=== PATIENT | female | born 1960 | race Caucasian/White ===

== ENCOUNTER → 2021-10-27 11:09 | Outpatient (CLI) | payer MEDICARE, SELFPAY ==
[2021-10-27 14:12] LABS: Potassium 5.4 mmoL/L (3.5-5.1)
== END ==
PROVIDERS: Nurse Practitioner Adult Health
DX: E87.5 Hyperkalemia (principal)
CPT/HCPCS: 36415; 84132

== ENCOUNTER → 2022-05-02 10:40 | Outpatient (CLI) | payer MEDICARE, SELFPAY ==
[2022-05-02 11:35] LABS: Basophils # 0.1 K/mm3 (0-0.2); Eosinophils # 0.1 K/mm3 (0.0-0.4); Eosinophils % 1.2 % (0.1-12.0); Hematocrit 50.1 % (37.0-47.0); Hemoglobin 15.7 g/dL (12.2-16.2); Lymphocytes # 1.8 K/mm3 (0.7-4.5); Lymphocytes % 16.3 % (10-50); Mean Corpuscular HGB Conc 31.3 g/dL (31.8-35.4); Mean Corpuscular Volume 92.5 fl (81-99); Monocytes # 0.9 K/mm3 (0.1-1.0); Monocytes % 8.7 % (1.7-9.3); Neutrophils # 7.9 K/mm3 (1.8-7.8); Neutrophils % 72.8 % (37.0-80.0); Platelet Count 237 K/mm3 (142-424); Red Blood Count 5.41 M/mm3 (4.20-5.40); Red Cell Distribution Width 14.4 % (11.5-17.5); White Blood Count 10.8 K/mm3 (4.8-10.8)
[2022-05-02 11:37] LABS: Chloride 107 mmol/L (98-107)
[2022-05-02 11:38] LABS: Potassium 5.6 mmoL/L (3.5-5.1); Sodium 140 mmol/L (136-145)
[2022-05-02 11:40] LABS: Alanine Aminotransferase 17 U/L (12-78); Albumin Level 4.1 g/dl (3.5-5.0); Albumin/Globulin Ratio 1.5 (1.1-1.8); Alkaline Phosphatase 78 U/L (38-126); Anion Gap 12.6 mEq/L (5-15); Aspartate Amino Transferase 22 U/L (14-36); Bilirubin,Total 0.7 mg/dl (0.2-1.3); Blood Urea Nitrogen 20 mg/dl (7-17); Carbon Dioxide 26 mmol/L (22.0-30.0); Estimated Glomerular Filt Rate 42 ml/min (>60); GFR (African American) 50 ML/MIN (>60); Globulin 2.8 g/dL (1.3-3.2); Total Protein,Serum 6.9 g/dl (6.3-8.2)
[2022-05-02 11:41] LABS: Calcium 9.4 mg/dl (8.4-10.2); Cholesterol 129 mg/dl (140-200); Glucose 127 mg/dl (74-100); HDL Cholesterol 32 mg/dl (40-60); Triglycerides 251 mg/dl (30-150); VLDL Cholesterol 50 mg/dL (0-40)
[2022-05-02 12:20] LABS: Hemoglobin A1C 5.7 % (4.0-6.0)
== END ==
PROVIDERS: PCP Family Medicine; Visit Provider Family Medicine
DX: E11.9 Type 2 diabetes mellitus without complications (principal); E78.5 Hyperlipidemia, unspecified; Z79.84 Long term (current) use of oral hypoglycemic drugs
CPT/HCPCS: 36415; 80053; 80061; 83036; 84443; 85025

== ENCOUNTER → 2022-05-18 14:35 | Outpatient (CLI) | payer MEDICARE, SELFPAY ==
--- NOTE | 2022-05-18 14:35 | CT_ITS ---
FINAL REPORT TECHNIQUE: Axial images were obtained from the lung apex to the mid abdomen by computed tomography. This study was performed with techniques to keep radiation doses as low as reasonably achievable (ALARA). Individualized dose reduction techniques using automated exposure control or adjustment of mA and/or kV according to the patient's size were employed. CLINICAL HISTORY: lung cancer screening, 1 PPD X 44 YEARS FINDINGS: CHEST CT LOW DOSE CTDI vol (mGy): 2.90 DLP (mGy-cm): 103.42 There is severe coronary artery calcification. Left subclavian pacer is identified. There is no axillary adenopathy. There is no hilar or mediastinal adenopathy. The heart is normal in size. There is no pericardial or pleural effusion. Lung window images demonstrate no suspicious infiltrate or nodule. There are multiple bilateral calcified granulomas. Limited images of the upper abdomen are unremarkable. IMPRESSION: Lung RADS category 1 S. Recommend 12 month follow-up low-dose chest CT. Modifier S: Severe coronary artery calcification. Reviewed, Interpreted and Dictated by Sameer White III, MD Transcribed by Merari Montelongo Authenticated and [facility]
== END ==
PROVIDERS: PCP Family Medicine; Visit Provider Family Medicine
DX: Z87.891 Personal history of nicotine dependence; Z12.2 Encounter for screening for malignant neoplasm of respiratory organs
CPT/HCPCS: 71271

== ENCOUNTER → 2022-05-26 11:15 | Outpatient (CLI) | payer MEDICARE, SELFPAY ==
[2022-05-26 11:22] LABS: Microscopic, Urine URINE MICROSCOPIC (MICROSCOPIC)
[2022-05-26 12:13] LABS: Appearance,Urine CLEAR (Clear); Bilirubin,Urine Negative (Negative); Blood, Urine TRACE-I (Negative); Color,Urine YELLOW (Yellow); Glucose,Urine (UA) Negative (Negative); Ketones,Urine Negative (Negative); Leukocyte Esterase,Urine Negative (Negative); Nitrate,Urine Negative (Negative); Protein,Urine 2+ (Negative); Specific Gravity, Urine 1.015 (1.005-1.030); Urobilinogen,Urine 0.2 EU/dl (0.2)
[2022-05-26 12:16] LABS: Alanine Aminotransferase 15 U/L (12-78); Albumin Level 4.1 g/dl (3.5-5.0); Albumin/Globulin Ratio 1.5 (1.1-1.8); Alkaline Phosphatase 76 U/L (38-126); Anion Gap 12.1 mEq/L (5-15); Aspartate Amino Transferase 22 U/L (14-36); Bilirubin,Total 0.4 mg/dl (0.2-1.3); Blood Urea Nitrogen 33 mg/dl (7-17); Calcium 9.2 mg/dl (8.4-10.2); Carbon Dioxide 30 mmol/L (22.0-30.0); Chloride 106 mmol/L (98-107); Chol/HDL Ratio 2.8 (1-3.5); Cholesterol 150 mg/dl (140-200); Estimated Glomerular Filt Rate 38 ml/min (>60); GFR (African American) 46 ML/MIN (>60); Globulin 2.8 g/dL (1.3-3.2); Glucose 114 mg/dl (74-100); HDL Cholesterol 53 mg/dl (40-60); Sodium 142 mmol/L (136-145); Total Protein,Serum 6.9 g/dl (6.3-8.2); Triglycerides 131 mg/dl (30-150); VLDL Cholesterol 26 mg/dL (0-40)
[2022-05-26 12:23] LABS: Potassium 6.1 mmoL/L (3.5-5.1)
[2022-05-26 12:27] LABS: Direct LDL Cholesterol 77.11 mg/dL (100-129)
[2022-05-26 12:37] LABS: Creatinine,Urine Random 53 mg/dL (Not Estab.)
[2022-05-26 13:28] LABS: Microalbumin/Creatinine Ratio 1211.3
== END ==
PROVIDERS: PCP Family Medicine; Visit Provider Family Medicine
DX: E11.9 Type 2 diabetes mellitus without complications (principal); I10 Essential (primary) hypertension; E78.5 Hyperlipidemia, unspecified
CPT/HCPCS: 36415; 80053; 80061; 81001; 82043; 82570

== ENCOUNTER 2022-05-27 10:49 | Observation (INO) | payer MEDICARE, SELFPAY ==
[2022-05-27] VITALS (17 sets, daily range): BP systolic 105–191; BP diastolic 73–124; PULSE 50–59; RESP 12–20; TEMP 36.6–36.8; O2SAT 93–96; BMI 28.1
--- NOTE | 2022-05-27 10:57 | ECG_ITS ---
APPROVED REPORT Exam: Resting ECG HR:50 bpm ECG Measurements Heart Rate 50 AXES WI 163 P 61 QRSd 89 QRS 68 QT 415 T 15 QTc 390 Conclusion SINUS BRADYCARDIA BORDERLINE ECG UNCONFIRMED REPORT Electronically signed by : Brett Childs MD 05/27/2022 14:19:05
--- NOTE | 2022-05-27 11:05 | HMH.EDGENADL ---
Discharge Plan Disposition Patient Disposition: Admitted As Inpatient Condition: Fair Prescriptions Prescriptions: No Action metoprolol tartrate 50 mg tablet 50 mg PO BID Label Comments: TAKE 1 TABLET BY MOUTH TWICE DAILY isosorbide dinitrate 10 mg tablet 10 mg PO TID Label Comments: TAKE 1 TABLET BY MOUTH THREE TIMES DAILY lisinopril 10 mg tablet 10 mg PO DAILY rosuvastatin 20 mg tablet 20 mg PO DAILY Label Comments: TAKE 1 TABLET BY MOUTH DAILY diazepam 5 mg tablet 5 mg PO TID Label Comments: TAKE 1 TABLET BY MOUTH EVERY 8 HOURS NEEDED gabapentin 300 mg capsule 300 mg PO .COMPLEX Rx Instructions: 300 mg orally 1qam, 2pm, 3qhs; clopidogrel 75 mg tablet 75 mg PO DAILY Label Comments: TAKE 1 TABLET BY MOUTH DAILY aspirin 325 mg tablet 325 mg PO DAILY nitroglycerin 0.4 mg tablet, sublingual 0.4 mg sublingual Q5-15M PRN albuterol sulfate 90 mcg/actuation HFA aerosol inhaler 2 inh inhalation Q6H PRN fluticasone furoate-vilanterol [Breo Ellipta] 200-25 mcg/dose blister with device 1 inh inhalation DAILY Label Comments: INHALE 1 PUFF BY MOUTH DAILY omeprazole 40 mg capsule,delayed release(DR/EC) 40 mg PO DAILY Label Comments: TAKE 1 CAPSULE BY MOUTH DAILY trazodone 50 mg tablet 50 mg PO HS Label Comments: TAKE 1 TABLET BY MOUTH AT BEDTIME tramadol 50 mg tablet 100 mg PO Q4-6H PRN lidocaine-prilocaine 2.5-2.5 % cream 2 g topical .COMPLEX PRN Label Comments: APPLY 1 TO 2 GRAMS TOPICALLY TO THE AFFECTED AREA 3 TO 4 TIMES A DAY Rx Instructions: 2 grams topically 3-4 times daily PRN; (DME) nebulizers [facility] See Rx Instructions .Route Qty: 1 0RF Rx Instructions: As directed ipratropium-albuterol 0.5 mg-3 mg(2.5 mg base)/3 mL solution for nebulization 3 ml inhalation QID PRN (Reason: shortness of breath or wheezing) Qty: 180 1RF duloxetine [Cymbalta] 60 mg capsule,delayed release(DR/EC) 60 mg PO DAILY Qty: 30 3RF varenicline [Chantix Starting Month Box] 0.5 mg (11)- 1 mg (42) tablets,dose pack See Rx Instructions PO PER PKG DIR Qty: 53 0RF Rx Instructions: PO PER PKG DIR varenicline 1 mg tablet See Rx Instructions .ROUTE .COMPLEX Qty: 180 0RF Dose Instruction: TAKE 1 TABLET BY MOUTH TWICE DAILY Rx Instructions: TAKE 1 TABLET BY MOUTH TWICE DAILY Referrals Follow up/Referrals: Chantell Ray DO [Primary Care Provider] - See instructions Clinical Impressions Clinical Impression: Myocardial infarction Qualifiers: Myocardial infarction type: non-ST elevation myocardial infarction Qualified Code(s): I21.4 - Non-ST elevation (NSTEMI) myocardial infarction Discharge ED Provider: Savanah Jason General Adult HPI General Chief complaint: Recheck/Abnormal Lab/Rx Stated complaint: Phys ref, high potassium Time Seen by Provider: 05/27/22 11:05 Mode of Arrival: Family Vehicle History of Present Illness HPI narrative: The patient presents to the emergency department referred by her primary care doctor for hyperkalemia. She had blood drawn yesterday. Her potassium was higher than 6. She has renal insufficiency. She also complains of having had chest pain on . It lasted 45 minutes. She has had intermittent shoulder episodes of chest pain since then. She has known artery disease. Related Data Home Medications Medication Instructions Recorded Confirmed albuterol sulfate 90 mcg/actuation 2 inh inhalation Q6H PRN 04/27/22 05/26/22 aerosol inhaler aspirin 325 mg tablet 325 mg PO DAILY 04/27/22 05/26/22 clopidogrel 75 mg tablet 75 mg PO DAILY 04/27/22 05/26/22 diazepam 5 mg tablet 5 mg PO TID 04/27/22 05/26/22 fluticasone furoate 200 1 inh inhalation DAILY 04/27/22 05/26/22 mcg-vilanterol 25 mcg/dose inhalation powder (Breo Ellipta) gabapentin 300 mg capsule 300 mg PO .COMPLEX
[2022-05-27 11:17] LABS: Basophils % 0.3 % (0.1-2.0); Eosinophils # 0.1 K/mm3 (0.0-0.4); Eosinophils % 0.5 % (0.1-12.0); Hematocrit 48.6 % (37.0-47.0); Hemoglobin 15.5 g/dL (12.2-16.2); Lymphocytes # 1.9 K/mm3 (0.7-4.5); Lymphocytes % 14.5 % (10-50); Mean Corpuscular HGB Conc 31.9 g/dL (31.8-35.4); Mean Corpuscular Hemoglobin 29.6 pg (27.0-31.2); Mean Corpuscular Volume 92.7 fl (81-99); Monocytes # 1.1 K/mm3 (0.1-1.0); Monocytes % 8.6 % (1.7-9.3); Neutrophils # 9.7 K/mm3 (1.8-7.8); Platelet Count 224 K/mm3 (142-424); Red Blood Count 5.24 M/mm3 (4.20-5.40); Red Cell Distribution Width 14.5 % (11.5-17.5); White Blood Count 12.8 K/mm3 (4.8-10.8)
[2022-05-27 11:20] LABS: Chloride 106 mmol/L (98-107); Sodium 137 mmol/L (136-145)
[2022-05-27 11:23] LABS: Blood Urea Nitrogen 35 mg/dl (7-17); Calcium 8.7 mg/dl (8.4-10.2); Carbon Dioxide 23 mmol/L (22.0-30.0); Estimated Glomerular Filt Rate 42 ml/min (>60); GFR (African American) 50 ML/MIN (>60); Glucose 152 mg/dl (74-100)
--- NOTE | 2022-05-27 11:39 | PC.NURSE ---
Rounded on patient; call light within reach
[2022-05-27 11:41] LABS: Troponin I 0.36 ng/ml (0.00-0.034)
--- NOTE | 2022-05-27 11:41 | PC.NURSE ---
critical reported to , trop 0.34.
--- NOTE | 2022-05-27 11:46 | PC.NURSE ---
tenter frame operator gianluca White for ER
--- NOTE | 2022-05-27 11:53 | PC.NURSE ---
calling hospitalist about possible admission, had another call said he would call back in 3 minutes approximately
--- NOTE | 2022-05-27 12:02 | PC.NURSE ---
called care management for admission to hospitalist on med surge awaiting call for bed assignment
--- NOTE | 2022-05-27 12:05 | PC.NURSE ---
Dr. Jason at speaking with the patient; family at
[2022-05-27 12:06] LABS: Coronavirus 19, PCR Not Detected (NotDetected); Influenza A, PCR Not Detected (NotDetected); Influenza B, PCR Not Detected (NotDetected)
--- NOTE | 2022-05-27 12:15 | PC.NURSE ---
Cards at bedside.
--- NOTE | 2022-05-27 12:25 | EXP.CARD.CON ---
History of Present Illness History of Present Illness Consult date: 05/27/22 Requesting physician: Savanah Jason Consult reason: chest pain Chief complaint: Chest pain History of present illness: 62-year-old white female with past medical history of coronary artery disease status post stenting, hypertension, HFrEF s/p AICD, V. tach, 1 pack/day smoker greater than 40 years, chronic kidney disease and bilateral carotid artery stenosis presented to emergency department this morning with complaints of intermittent chest pain x1 week. Patient reports over the past week has had episodes of midsternal chest pain radiating to bilateral shoulders and into back associated with shortness of breath, exacerbated with exertion present at rest, this is becoming more frequent. Patient reports on morning had episode that was the worst thus far that was relieved with 2 nitro. Patient reports blood pressure has also been elevated the last week with systolic greater than 160. Patient had routine follow-up with PCP today and mentioned chest pain. Incidentally, patient was also reported to have an elevated potassium by PCP so she was sent to emergency department for hyperkalemia and chest pain. Upon presentation to emergency department EKG shows sinus bradycardia rate of [address] changes. Labs as follow: WBC 12.8, hemoglobin 15.5, sodium 137, potassium 5.0, creatinine 1.30, BUN 35 and troponin elevated at 0.36. Of note blood pressure was also elevated upon presentation to ER with systolic in the 160s. Patient reports previously has seen a estimator in [place] and needs to establish cardiology care here since moving to [place]. Patient will be admitted to hospital with initial presentation of elevated troponin and htn. Patient denies chest pain or shortness of breath at this time. Echo pending [facility] Disclaimer: The information contained in this section may have been updated after the patient was seen, as this information can be updated by other users. Medical History Anxiety Arthritis CAD (coronary artery disease) Carotid stenosis CKD (chronic kidney disease) COPD (chronic obstructive pulmonary disease) CVA (cerebral vascular accident) Depression Diabetes mellitus Diverticulosis GERD (gastroesophageal reflux disease) History of common carotid artery stent placement HTN (hypertension), benign Hyperlipidemia Insomnia Low back pain PVD (peripheral vascular disease) Tobacco abuse Surgical History H/O carotid endarterectomy Right H/O colonoscopy 2020 with Polyp H/O laparoscopy H/O total hysterectomy History of appendectomy History of bladder surgery Fistula repair History of implantable cardioverter-defibrillator (ICD) placement Hx of cardiac cath S/P laparoscopic-assisted sigmoidectomy Family History Father Coronary artery disease Cancer colon Heart attack Mother Coronary artery disease Heart attack Hypertension Stroke Brother Coronary artery disease Heart attack Diabetes Sister Coronary artery disease Diabetes Heart attack Hyperlipidemia Social History Smoking Status: Current every day smoker tobacco type: cigarettes packs per day: 1 years smoked: 40 alcohol intake: never substance use type: denies use current occupational status: disabled Travel in the last 8 weeks: None marital status: Review of Systems Review of Systems Review of systems:: pertinent systems reviewed and negative unless documented below *Cardiovascular Cardiovascular: Reports chest pain at rest, Reports chest pain with activity and Reports dyspnea on exertion *Respiratory Respiratory: Reports dyspnea on exertion Exam Data for Last 24 hours Vital signs
--- NOTE | 2022-05-27 12:26 | PC.NURSE ---
Report provided to ANATOLIY Chávez
--- NOTE | 2022-05-27 12:45 | EXP.HP ---
History of Present Illness *Admission Date: 05/27/22 *Reason for visit:: NSTEMI, abnormal labs, chest pain *History of present illness: Ms. Richards is a 62-year-old female with history of coronary artery disease, previous stenting, hypertension, heart failure with reduced ejection fraction status post AICD, extensive smoking history, COPD, CKD who presented to the ER at the encouragement of her PCP due to chest pain on and some abnormal labs obtained yesterday. Arrival to the ER she stated she had episodes of midsternal pain radiating to her shoulders and back accompanied by shortness of breath brought on by exertion that occurred yesterday morning. Episode lasted about 45 minutes and then self resolved. She has had heart attacks before and felt that this was similar. States that she has had repeat episodes that been very brief and time and self resolved. Had a routine follow-up with her PCP yesterday and mention the pain, labs were obtained. Given her labs came back with elevated potassium per patient report and the onset of chest pain, PCP encourage patient to come to the ER today. On presentation EKG obtained along with labs. She is in sinus bradycardia with nonspecific ST changes. Initial troponin 0.6. Potassium 5. Cardiology and medicine consulted. ER felt patient would benefit from admission. Cardiology saw the patient in the ER, recommended making some medicine changes and addressing symptoms conservatively. Upon arrival to the floor, patient denies any chest pain at this time. Denies any nausea, vomiting, confusion, headache. Reports she follows with cardiology in [place]. [facility] Disclaimer: The information contained in this section may have been updated after the patient was seen, as this information can be updated by other users. Medical History Anxiety Arthritis CAD (coronary artery disease) Carotid stenosis CKD (chronic kidney disease) COPD (chronic obstructive pulmonary disease) CVA (cerebral vascular accident) Depression Diabetes mellitus Diverticulosis GERD (gastroesophageal reflux disease) History of common carotid artery stent placement HTN (hypertension), benign Hyperlipidemia Insomnia Low back pain PVD (peripheral vascular disease) Tobacco abuse Surgical History H/O carotid endarterectomy H/O colonoscopy H/O laparoscopy H/O total hysterectomy History of appendectomy History of bladder surgery History of implantable cardioverter-defibrillator (ICD) placement Hx of cardiac cath S/P laparoscopic-assisted sigmoidectomy Family History Diabetes Brother Sister Coronary artery disease Father Mother Brother Sister Hyperlipidemia Sister Heart attack Father Mother Brother Sister Cancer Father Hypertension Mother Stroke Mother Social History Smoking Status: Current every day smoker tobacco type: cigarettes packs per day: 1 years smoked: 40 alcohol intake: never substance use type: denies use current occupational status: disabled Travel in the last 8 weeks: None marital status: Review of Systems Review of Systems Review of systems (narrative): 14 point review of systems performed, pertinent positives and negatives as per [facility] Meds Home Medications and Allergies Home Medications Medication Instructions Recorded Confirmed Type albuterol sulfate 90 mcg/actuation 2 inh inhalation Q4HP PRN 04/27/22 05/27/22 History aerosol inhaler Shortness Of Breath aspirin 325 mg tablet 325 mg PO DAILY Heart disease 04/27/22 05/27/22 History clopidogrel 75 mg tablet 75 mg PO DAILY platelet inhibitor 04/27/22 05/27/22 History diazepam 5 mg tablet 5 mg PO TIDP PRN Anxiety 04/27/22 05/27/22 History fluticasone furoate 200 1 inh inhalation DAILY COPD 04/27/22 0
--- NOTE | 2022-05-27 13:04 | PC.NURSE ---
PATIENT ARRIVED TO FLOOR BY WHEELCHAIR FROM ED AT 1255
[2022-05-27 14:38] LABS: Troponin I 0.38 ng/ml (0.00-0.034)
[2022-05-27 17:54] LABS: Troponin I 0.31 ng/ml (0.00-0.034)
--- NOTE | 2022-05-27 17:56 | PC.NURSE ---
Dr. Torres notified of critical troponin 0.31
[2022-05-28] VITALS (10 sets, daily range): BP systolic 140–189; BP diastolic 78–95; PULSE 48–57; RESP 17–18; TEMP 36.7–36.8; O2SAT 90–95; BMI 28.3
--- NOTE | 2022-05-28 04:32 | PC.NURSE ---
dinamap bp reading pumped arm up twice to get reading of 170/83. rechecked with manual bp cuff and BP was 154/80. KIMMIE Wood notified and was instructed to have dayshift nurse give 9AM BP meds at 8 AM.
--- NOTE | 2022-05-28 04:49 | PC.NURSE ---
PATIENT HAS RESTED WELL. NO C/O PAIN OR SOA. SINUS ISAI ON TELEMETRY. INDEPENDENT TO THE BR. PLEASANT AND COOPERATIVE.
[2022-05-28 07:25] LABS: Chloride 105 mmol/L (98-107); Potassium 4.7 mmoL/L (3.5-5.1); Sodium 139 mmol/L (136-145)
[2022-05-28 07:26] LABS: Basophils % 0.2 % (0.1-2.0); Eosinophils % 0.4 % (0.1-12.0); Hematocrit 48.8 % (37.0-47.0); Hemoglobin 15.7 g/dL (12.2-16.2); Lymphocytes # 1.9 K/mm3 (0.7-4.5); Lymphocytes % 19.8 % (10-50); Mean Corpuscular HGB Conc 32.2 g/dL (31.8-35.4); Mean Corpuscular Hemoglobin 30.2 pg (27.0-31.2); Mean Corpuscular Volume 93.6 fl (81-99); Mean Platelet Volume 9.1 fl (7.4-10.4); Monocytes # 0.7 K/mm3 (0.1-1.0); Monocytes % 7.1 % (1.7-9.3); Neutrophils # 6.8 K/mm3 (1.8-7.8); Neutrophils % 72.4 % (37.0-80.0); Platelet Count 172 K/mm3 (142-424); Red Blood Count 5.21 M/mm3 (4.20-5.40); Red Cell Distribution Width 14.5 % (11.5-17.5); White Blood Count 9.4 K/mm3 (4.8-10.8)
[2022-05-28 07:27] LABS: Blood Urea Nitrogen 35 mg/dl (7-17); Creatinine Clearance Estimated 49 mL/min (50-200); Estimated Glomerular Filt Rate 42 ml/min (>60); GFR (African American) 50 ML/MIN (>60)
[2022-05-28 07:28] LABS: Alanine Aminotransferase 15 U/L (12-78); Albumin Level 3.9 g/dl (3.5-5.0); Albumin/Globulin Ratio 1.4 (1.1-1.8); Alkaline Phosphatase 68 U/L (38-126); Anion Gap 9.7 mEq/L (5-15); Aspartate Amino Transferase 18 U/L (14-36); Bilirubin,Total 0.4 mg/dl (0.2-1.3); Calcium 8.7 mg/dl (8.4-10.2); Carbon Dioxide 29 mmol/L (22.0-30.0); Cholesterol 129 mg/dl (140-200); Globulin 2.8 g/dL (1.3-3.2); Glucose 119 mg/dl (74-100); Magnesium 1.8 mg/dl (1.6-2.3); Total Protein,Serum 6.7 g/dl (6.3-8.2); Triglycerides 186 mg/dl (30-150); VLDL Cholesterol 37 mg/dL (0-40)
[2022-05-28 07:29] LABS: HDL Cholesterol 43 mg/dl (40-60)
[2022-05-28 07:40] LABS: Direct LDL Cholesterol 56.24 mg/dL (100-129)
--- NOTE | 2022-05-28 07:41 | EXP.ACUTE.PN ---
Subjective *Date: 05/28/22 *Time: 07:41 Interval history: No issues overnight. Patient is feeling better today. No chest pain. Would like to go home Medical Exam Vital signs and Labs for Last 24 Hours: Vital Signs Temp Pulse Pulse Resp BP BP Pulse Ox 05/28/22 06:00 95 05/28/22 04:30 154/80 H 05/28/22 04:18 48 L 05/28/22 04:08 48 L 05/28/22 04:00 98.0 F 50 L 17 170/83 H 90 L 05/28/22 00:17 51 L 05/28/22 00:04 51 L 05/27/22 23:47 98.2 F 59 L 16 136/84 95 05/27/22 20:00 58 L 05/27/22 21:45 58 L 05/27/22 19:48 95 05/27/22 19:25 98.1 F 56 L 17 147/73 H 05/27/22 17:32 56 L 143/81 H 05/27/22 16:00 98.3 F 52 L 18 179/74 H 95 05/27/22 16:00 50 L 05/27/22 13:02 50 L 05/27/22 13:11 98.2 F 51 L 20 157/102 H 93 L 05/27/22 12:49 98 F 54 L 18 191/89 H 05/27/22 12:31 54 L 18 191/89 H 95 05/27/22 12:01 53 L 166/79 H 93 L 05/27/22 11:51 52 L 16 105/83 L 05/27/22 11:36 53 L 105/83 L 95 05/27/22 11:30 52 L 147/124 H 95 05/27/22 10:50 98.1 F 53 L 12 182/98 H 96 05/27/22 11:01 14 189/94 H Intake and Output 05/27/22 05/27/22 05/28/22 15:59 23:59 07:59 Intake Total 120 / 360 240 / 240 Output Total 600 / 600 500 / 500 Balance -480 / -240 -260 / -260 Intake: Intake, Oral Amount 120 / 360 240 / 240 Output: Output, Urine Amount 600 / 600 500 / 500 Other: Number of Unmeasured Voids 1 02 06 Weight 69.853 kg 69.853 kg Patient Weight 05/28/22 23:59 Weight 69.853 kg Laboratory Results - last 24 hr 05/27/22 11:10: Sodium 137, Potassium 5.0, Chloride 106, Carbon Dioxide 23, Anion Gap 13.0, BUN 35 H, Creatinine 1.30 H, Estimated GFR 42 L, Est GFR ( Amer) 50 L, Glucose 152 H D, Calcium 8.7, Troponin I 0.36 H 05/27/22 11:10: WBC 12.8 H, RBC 5.24, Hgb 15.5, Hct 48.6 H, MCV 92.7, MCH 29.6, MCHC 31.9, RDW 14.5, Plt Count 224, MPV 9.0, Neut % (Auto) 76.0, Lymph % (Auto) 14.5, [place] % (Auto) 8.6, Eos % (Auto) 0.5, Baso % (Auto) 0.3, Neut # (Auto) 9.7 H, Lymph # (Auto) 1.9, [place] # (Auto) 1.1 H, Eos # (Auto) 0.1, Baso # (Auto) 0.0 05/27/22 12:03: SARS-CoV-2 (PCR) Not detected, Influenza A Untype (PCR) Not detected, Influenza Type B (PCR) Not detected 05/27/22 14:08: Troponin I 0.38 H 05/27/22 17:15: Troponin I 0.31 H 05/28/22 06:50: WBC 9.4 D, RBC 5.21, Hgb 15.7, Hct 48.8 H, MCV 93.6, MCH 30.2, MCHC 32.2, RDW 14.5, Plt Count 172, MPV 9.1, Neut % (Auto) 72.4, Lymph % (Auto) 19.8, [place] % (Auto) 7.1, Eos % (Auto) 0.4, Baso % (Auto) 0.2, Neut # (Auto) 6.8, Lymph # (Auto) 1.9, [place] # (Auto) 0.7, Eos # (Auto) 0.0, Baso # (Auto) 0.0 05/28/22 06:50: Sodium 139, Potassium 4.7, Chloride 105, Carbon Dioxide 29, Anion Gap 9.7, BUN 35 H, Creatinine 1.30 H, Estimated Creat Clear 49, Estimated GFR 42 L, Est GFR ( Amer) 50 L, Glucose 119 H D, Calcium 8.7, Magnesium 1.8, Total Bilirubin 0.4, AST 18, ALT 15, Alkaline Phosphatase 68, Total Protein 6.7, Albumin 3.9, Globulin 2.8, Albumin/Globulin Ratio 1.4, Triglycerides 186 H, Cholesterol 129 L, VLDL Cholesterol 37, HDL Cholesterol 43, Cholesterol/HDL Ratio 3.0 I & O for Labs for Last 24 Hours: Intake & Output 05/25/22 05/26/22 05/27/22 05/28/22 23:59 23:59 23:59 23:59 Intake Total 120 / 360 240 / 240 Output Total 600 / 600 500 / 500 Balance -480 / -240 -260 / -260 Weight 69.853 kg 69.853 kg Constitutional: Present no acute distress Comment:: Overweight Respiratory: Present CTA bilaterally and normal respiratory effort; Absent accessory muscle use Cardiac: Present Reg Rate and Rhythm GI: Present soft and normal bowel sounds; Absent tenderness Extremities: Present normal inspection and full ROM Skin: Present intact; Absent erythema Neuro: Present Grossly Intact and moves all extremities Assessment and Plan *Assessment and plan (1) Chronic kidney disease: Status: Acute
[2022-05-28 07:54] LABS: Hemoglobin A1C 5.9 % (4.0-6.0)
[2022-05-28 07:55] LABS: Troponin I 0.24 ng/ml (0.00-0.034)
[2022-05-28 07:59] LABS: Thyroid Stimulating Hormone 0.31 uIU/mL (0.465-4.68)
--- NOTE | 2022-05-28 08:55 | EXP.DC.SUM ---
General Admission date:: 05/27/22 Discharge date: 05/28/22 HPI HPI HPI: Ms. Richards is a 62-year-old female with history of coronary artery disease, previous stenting, hypertension, heart failure with reduced ejection fraction status post AICD, extensive smoking history, COPD, CKD who presented to the ER at the encouragement of her PCP due to chest pain on and some abnormal labs obtained yesterday. Arrival to the ER she stated she had episodes of midsternal pain radiating to her shoulders and back accompanied by shortness of breath brought on by exertion that occurred yesterday morning. Episode lasted about 45 minutes and then self resolved. She has had heart attacks before and felt that this was similar. States that she has had repeat episodes that been very brief and time and self resolved. Had a routine follow-up with her PCP yesterday and mention the pain, labs were obtained. Given her labs came back with elevated potassium per patient report and the onset of chest pain, PCP encourage patient to come to the ER today. On presentation EKG obtained along with labs. She is in sinus bradycardia with nonspecific ST changes. Initial troponin 0.6. Potassium 5. Cardiology and medicine consulted. ER felt patient would benefit from admission. Cardiology saw the patient in the ER, recommended making some medicine changes and addressing symptoms conservatively. Upon arrival to the floor, patient denies any chest pain at this time. Denies any nausea, vomiting, confusion, headache. Reports she follows with cardiology in [place]. Hospital Course Hospital Course Hospital Course: Patient was admitted with chest pain and elevated troponins. Also had potassium of 5 at primary care physician. On evaluation she had normal potassium but was severely hypertensive 190s. Cardiology consulted made recommendations to blood pressure medicines. Initiated Imdur 30 mg, Ranexa 500 twice daily and Norvasc 5 mg daily in addition to her home medications. This morning patient was asymptomatic and feeling much better. Denies any chest pain. Discussed alterations in medications, patient was requesting to go home. Given clinical stability and improvement with management of hypertensive emergency will discharge with follow-up. Echocardiogram is pending, follow-up outpatient. Consider renal duplex outpatient Exam Data for Last 24 hours Vital signs and Labs for Last 24 Hours: Temp Pulse Resp BP Pulse Ox 98.3 F 57 L 18 140/78 94 L 05/28/22 07:54 05/28/22 07:54 05/28/22 07:54 05/28/22 08:47 05/28/22 07:54 Laboratory Results - last 24 hr 05/27/22 11:10: Sodium 137, Potassium 5.0, Chloride 106, Carbon Dioxide 23, Anion Gap 13.0, BUN 35 H, Creatinine 1.30 H, Estimated GFR 42 L, Est GFR ( Amer) 50 L, Glucose 152 H D, Calcium 8.7, Troponin I 0.36 H 05/27/22 11:10: WBC 12.8 H, RBC 5.24, Hgb 15.5, Hct 48.6 H, MCV 92.7, MCH 29.6, MCHC 31.9, RDW 14.5, Plt Count 224, MPV 9.0, Neut % (Auto) 76.0, Lymph % (Auto) 14.5, [place] % (Auto) 8.6, Eos % (Auto) 0.5, Baso % (Auto) 0.3, Neut # (Auto) 9.7 H, Lymph # (Auto) 1.9, [place] # (Auto) 1.1 H, Eos # (Auto) 0.1, Baso # (Auto) 0.0 05/27/22 12:03: SARS-CoV-2 (PCR) Not detected, Influenza A Untype (PCR) Not detected, Influenza Type B (PCR) Not detected 05/27/22 14:08: Troponin I 0.38 H 05/27/22 17:15: Troponin I 0.31 H 05/28/22 06:50: Troponin I 0.24 H 05/28/22 06:50: WBC 9.4 D, RBC 5.21, Hgb 15.7, Hct 48.8 H, MCV 93.6, MCH 30.2, MCHC 32.2, RDW 14.5, Plt Count 172, MPV 9.1, Neut % (Auto) 72.4, Lymph % (Auto) 19.8, [place] % (Auto) 7.1, Eos % (Auto) 0.4, Baso % (Auto) 0.2, Neut # (Auto) 6.8, Lymph # (Auto) 1.9, [place] # (Auto) 0.7, Eos # (Auto) 0.0, Baso # (Auto) 0.0 05/28/22 06:50: Sodium 139, Potassium 4.7, Chloride 105, Carbon Dioxide 29, Anion Gap 9.7, BUN 35 H, Creatinine 1.30 H, Estimated Creat Clear 49, Estimated GFR 42 L, Est GFR ( Amer) 50 L, Glucose 119 H D, Calcium 8.7, Magnesium 1.8, Total Bilirubin 0.
--- NOTE | 2022-05-30 14:25 | CARE MANAGER ---
Spoke with patient for post-discharge phone interview, patient did not have a follow-up in cardiology appointment. I called and got a cardiology follow-up for 06/08 @ 3pm.
== END 2022-05-28 10:25 | disposition home or self-care (01) ==
LOC: ER 11:56 → 2ND 12:20
PROVIDERS: Admitting Provider Internal Medicine Adolescent Medicine; Emergency Provider Emergency Medicine; PCP Family Medicine; Visit Provider Internal Medicine Adolescent Medicine
DX: I21.4 Non-ST elevation (NSTEMI) myocardial infarction (principal); I25.10 Atherosclerotic heart disease of native coronary artery without angina pectoris; I50.20 Unspecified systolic (congestive) heart failure; Z95.810 Presence of automatic (implantable) cardiac defibrillator; I13.0 Hypertensive heart and chronic kidney disease with heart failure and stage 1 through stage 4 chronic kidney disease, or unspecified chronic kidney disease; E78.5 Hyperlipidemia, unspecified; N18.9 Chronic kidney disease, unspecified; E87.5 Hyperkalemia; F41.9 Anxiety disorder, unspecified; F32.A Depression, unspecified; J44.9 Chronic obstructive pulmonary disease, unspecified; I16.1 Hypertensive emergency; I65.23 Occlusion and stenosis of bilateral carotid arteries; Z95.5 Presence of coronary angioplasty implant and graft; Z79.899 Other long term (current) drug therapy; Z20.822 Contact with and (suspected) exposure to COVID-19
CPT/HCPCS: G0378; 36415; 80048; 80053; 80061; 83036; 83735; 84443; 84484; 85025; 93005; 93306; 94640; 99285; C9803; U0003; U0005

== ENCOUNTER → 2022-07-20 13:52 | Outpatient (CLI) | payer MEDICARE, SELFPAY ==
[2022-07-20 15:06] LABS: Alanine Aminotransferase 16 U/L (12-78); Albumin Level 4.2 g/dl (3.5-5.0); Albumin/Globulin Ratio 1.4 (1.1-1.8); Alkaline Phosphatase 80 U/L (38-126); Anion Gap 15.8 mEq/L (5-15); Aspartate Amino Transferase 22 U/L (14-36); Bilirubin,Total 0.6 mg/dl (0.2-1.3); Blood Urea Nitrogen 20 mg/dl (7-17); Calcium 9.4 mg/dl (8.4-10.2); Carbon Dioxide 26 mmol/L (22.0-30.0); Chloride 106 mmol/L (98-107); Estimated Glomerular Filt Rate 42 ml/min (>60); GFR (African American) 50 ML/MIN (>60); Globulin 3.1 g/dL (1.3-3.2); Glucose 144 mg/dl (74-100); Potassium 4.8 mmoL/L (3.5-5.1); Sodium 143 mmol/L (136-145); Total Protein,Serum 7.3 g/dl (6.3-8.2)
== END ==
PROVIDERS: PCP Nurse Practitioner Family; Visit Provider Nurse Practitioner Family
DX: E87.5 Hyperkalemia (principal); N18.9 Chronic kidney disease, unspecified
CPT/HCPCS: 36415; 80053

== ENCOUNTER → 2022-09-15 15:46 | Outpatient (CLI) | payer MEDICARE, SELFPAY ==
[2022-09-15 13:06] LABS: Alanine Aminotransferase 17 U/L (12-78); Albumin Level 4.4 g/dl (3.5-5.0); Albumin/Globulin Ratio 1.4 (1.1-1.8); Alkaline Phosphatase 80 U/L (38-126); Anion Gap 15.8 mEq/L (5-15); Aspartate Amino Transferase 20 U/L (14-36); Bilirubin,Total 0.3 mg/dl (0.2-1.3); Blood Urea Nitrogen 19 mg/dl (7-17); Calcium 9.6 mg/dl (8.4-10.2); Carbon Dioxide 27 mmol/L (22.0-30.0); Chloride 107 mmol/L (98-107); Chol/HDL Ratio 3.1 (1-3.5); Cholesterol 138 mg/dl (140-200); Estimated Glomerular Filt Rate 38 ml/min (>60); GFR (African American) 46 ML/MIN (>60); Globulin 3.1 g/dL (1.3-3.2); Glucose 123 mg/dl (74-100); HDL Cholesterol 44 mg/dl (40-60); Potassium 4.8 mmoL/L (3.5-5.1); Sodium 145 mmol/L (136-145); Total Protein,Serum 7.5 g/dl (6.3-8.2); Triglycerides 166 mg/dl (30-150); VLDL Cholesterol 33 mg/dL (0-40)
[2022-09-15 13:07] LABS: Creatinine,Urine Random 105 mg/dL (Not Estab.)
[2022-09-15 13:17] LABS: Direct LDL Cholesterol 62.66 mg/dL (100-129)
[2022-09-15 13:36] LABS: Thyroid Stimulating Hormone 2.28 uIU/mL (0.465-4.68)
[2022-09-15 13:42] LABS: Hemoglobin A1C 5.4 % (4.0-6.0)
[2022-09-15 15:39] LABS: Microalbumin/Creatinine Ratio 789.3
== END ==
PROVIDERS: PCP Nurse Practitioner Family; Visit Provider Nurse Practitioner Family
DX: E11.9 Type 2 diabetes mellitus without complications (principal); N18.9 Chronic kidney disease, unspecified; E78.5 Hyperlipidemia, unspecified; I25.10 Atherosclerotic heart disease of native coronary artery without angina pectoris; I50.20 Unspecified systolic (congestive) heart failure; I11.0 Hypertensive heart disease with heart failure
CPT/HCPCS: 80053; 80061; 82043; 82570; 83036; 84443

== ENCOUNTER 2023-02-15 12:13 | Outpatient (CLI) | payer MEDICARE, SELFPAY ==
--- NOTE | 2023-02-15 12:20 | XR_ITS ---
FINAL REPORT CLINICAL HISTORY: Fall, low back pain COMPARISON: None FINDINGS: SACRUM COCCYX 3 views demonstrate no acute fracture or dislocation. The sacral arches are intact. The sacroiliac joints are unremarkable. No soft tissue abnormality is seen. IMPRESSION: No acute process. Reviewed, Interpreted and Dictated by Sameer White III, MD Transcribed by Matilde Leavitt Authenticated and [facility]
--- NOTE | 2023-02-15 12:20 | XR_ITS ---
FINAL REPORT CLINICAL HISTORY: Fall, lower back pain COMPARISON: None FINDINGS: 3 views of the lumbar spine were obtained. There is no evidence of fracture or dislocation. The vertebral alignment is normal. There is mild degenerative change with multilevel osteophytes. Moderate vascular calcifications are noted. Bilateral iliac artery stents are present. IMPRESSION: No acute bony abnormality. Reviewed, Interpreted and Dictated by Sameer White III, MD Transcribed by Matilde Leavitt Authenticated and [facility]
== END 2023-02-15 23:59 ==
PROVIDERS: PCP Internal Medicine; Visit Provider Internal Medicine
DX: M54.50 Low back pain, unspecified (principal); W19.XXXA Unspecified fall, initial encounter
CPT/HCPCS: 72100; 72220

== ENCOUNTER 2023-07-22 22:10 | Emergency (ER) | payer MEDICARE, SELFPAY ==
[2023-07-22 22:12] VITALS: BP 135/65; PULSE 56; RESP 17; TEMP 36.6; O2SAT 95; BMI 27.1
[2023-07-22 22:16] VITALS: BP 135/65; PULSE 55; O2SAT 93
[2023-07-22 22:31] VITALS: BP 122/97; PULSE 52; O2SAT 94
--- NOTE | 2023-07-22 22:48 | CT_ITS ---
PROCEDURE INFORMATION: Exam: CT Lumbar Spine Without Contrast Exam date and time: 07/23/2023 1:38 AM Age: 63 years old Clinical indication: Injury or trauma; Fall; Blunt trauma (contusions or hematomas); Additional info: Trauma, critical injury suspected TECHNIQUE: Imaging protocol: Computed tomography of the lumbar spine without contrast. Radiation optimization: All CT scans at this facility use at least one of these dose optimization techniques: automated exposure control; mA and/or kV adjustment per patient size (includes targeted exams where dose is matched to clinical indication); or iterative reconstruction. COMPARISON: CR XR LUMBAR SPINE 2-3V 11/07/2023 12:24 FINDINGS: Bones/joints: Degenerative changes at L4-L5 produce moderate spinal stenosis. Soft tissues: Unremarkable. Other findings: Please see separate report for abdomen/pelvis. IMPRESSION: No acute fracture or malalignment of the lumbar spine.
--- NOTE | 2023-07-22 22:48 | XR_ITS ---
PROCEDURE INFORMATION: Exam: XR Left Elbow Exam date and time: 07/23/2023 1:48 AM Age: 63 years old Clinical indication: Injury or trauma; Fall; Blunt trauma (contusions or hematomas); Elbow; Left; Additional info: Fall, blood thinners, pain TECHNIQUE: Imaging protocol: Radiologic exam of the left elbow. Views: 3 or more views. COMPARISON: CR XR HUMERUS LT 23/07/2023 01:48 FINDINGS: Bones/joints: No acute fracture or dislocation. Soft tissues: Normal. IMPRESSION: No acute fracture or dislocation.
--- NOTE | 2023-07-22 22:48 | XR_ITS ---
PROCEDURE INFORMATION: Exam: XR Left Shoulder Exam date and time: 07/23/2023 1:48 AM Age: 63 years old Clinical indication: Injury or trauma; Fall; Blunt trauma (contusions or hematomas); Shoulder; Left; Additional info: Fall, blood thinners, pain TECHNIQUE: Imaging protocol: Radiologic exam of the left shoulder. Views: 2 or more views. COMPARISON: CR XR HUMERUS LT 23/07/2023 01:48 FINDINGS: Bones/joints: No acute fracture or dislocation. Soft tissues: Normal. IMPRESSION: No acute fracture or dislocation.
--- NOTE | 2023-07-22 22:48 | CT_ITS ---
PROCEDURE INFORMATION: Exam: CTA Chest With Contrast Exam date and time: 07/23/2023 1:47 AM Age: 63 years old Clinical indication: Injury or trauma; Fall; Blunt trauma (contusions or hematomas); Additional info: Trauma, critical injury suspected TECHNIQUE: Imaging protocol: Computed tomographic angiography of the chest with contrast. Exam focused on the arteries. 3D rendering (Not supervised by radiologist): MIP and/or 3D reconstructed images were created by the technologist. Radiation optimization: All CT scans at this facility use at least one of these dose optimization techniques: automated exposure control; mA and/or kV adjustment per patient size (includes targeted exams where dose is matched to clinical indication); or iterative reconstruction. Contrast material: ISOUVE 370; Contrast volume: 100 ml; Contrast route: INTRAVENOUS (IV); COMPARISON: CT LUNG SCREENING 01/09/2023 14:47 FINDINGS: Tubes, catheters and devices: Cardiac pacemaker. Pulmonary arteries: Normal. No pulmonary emboli. 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 There is a bypass graft that is patent from the left common carotid artery to the left subclavian artery. Aorta: The aorta demonstrates moderate atherosclerotic disease. Lungs: Mild scarring and atelectasis in the lower lungs. Pleural spaces: Unremarkable. No pneumothorax. No pleural effusion. Heart: Cardiomegaly. Coronary arteries: Coronary artery calcifications. Lymph nodes: Unremarkable. No enlarged lymph nodes. Bones/joints: Unremarkable. No acute fracture. Soft tissues: Unremarkable. Other findings: Please see separate report for abdomen/pelvis. Stigmata of old granulomatous disease. IMPRESSION: No acute intrathoracic organ injury.
--- NOTE | 2023-07-22 22:48 | CT_ITS ---
PROCEDURE INFORMATION: Exam: CTA Abdomen and Pelvis With Contrast Exam date and time: 07/23/2023 1:47 AM Age: 63 years old Clinical indication: Injury or trauma; Fall; Blunt trauma; Pelvic area; Bilateral; Additional info: Trauma, critical injury suspected TECHNIQUE: Imaging protocol: Computed tomographic angiography of the abdomen and pelvis with contrast. Exam focused on the arteries. 3D rendering (Not supervised by radiologist): MIP and/or 3D reconstructed images were created by the technologist. Radiation optimization: All CT scans at this facility use at least one of these dose optimization techniques: automated exposure control; mA and/or kV adjustment per patient size (includes targeted exams where dose is matched to clinical indication); or iterative reconstruction. Contrast material: ISOUVE 370; Contrast volume: 100 ml; Contrast route: INTRAVENOUS (IV); COMPARISON: CT BONY PELVIS 23/07/2023 01:41 FINDINGS: Aorta: No aortic aneurysm. No aortic dissection. Celiac trunk and mesenteric arteries: No occlusion or significant stenosis. Renal arteries: There are 2 left renal arteries. Moderate right renal arterial stenosis. Right iliac arteries: No occlusion or significant stenosis. 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 Liver: No mass. Gallbladder and bile ducts: Unremarkable. No calcified stones. No ductal dilation. Pancreas: Unremarkable. No mass. No ductal dilation. Spleen: Unremarkable. No splenomegaly. Adrenal glands: Unremarkable. No mass. Kidneys and ureters: Low attenuation renal lesions measuring up to 1.8 cm in diameter are incompletely characterized, but are likely cysts. No followup imaging is warranted. Stomach and bowel: Postsurgical changes of the rectosigmoid colon. Appendix: No evidence of appendicitis. Intraperitoneal space: Unremarkable. No free air. No significant fluid collection. Lymph nodes: Unremarkable. No enlarged lymph nodes. Urinary bladder: Unremarkable. No mass. Reproductive: Status post hysterectomy. Bones/joints: No acute fracture. Soft tissues: There is a healed anterior abdominal wall incision. Other findings: Please see separate report for CT chest. Stigmata of old granulomatous disease. Scar tissue overlying the right femoral vessels. IMPRESSION: No acute intra-abdominal or intrapelvic organ injury.
--- NOTE | 2023-07-22 22:48 | CT_ITS ---
PROCEDURE INFORMATION: Exam: CT Thoracic Spine Without Contrast Exam date and time: 07/23/2023 1:35 AM Age: 63 years old Clinical indication: Injury or trauma; Fall; Blunt trauma (contusions or hematomas); Additional info: Trauma, critical injury suspected TECHNIQUE: Imaging protocol: Computed tomography of the thoracic spine without contrast. Radiation optimization: All CT scans at this facility use at least one of these dose optimization techniques: automated exposure control; mA and/or kV adjustment per patient size (includes targeted exams where dose is matched to clinical indication); or iterative reconstruction. COMPARISON: CT CERVICAL SPINE WO CON 23/07/2023 01:33 FINDINGS: Bones/joints: No acute fracture. Normal alignment. No significant disc bulge or herniation. No severe spinal canal stenosis. No significant neural foraminal narrowing. Soft tissues: Unremarkable. Other findings: Please see separate report for CT chest. IMPRESSION: No acute fracture or malalignment of the thoracic spine.
--- NOTE | 2023-07-22 22:48 | XR_ITS ---
PROCEDURE INFORMATION: Exam: XR Left Humerus Exam date and time: 07/23/2023 1:48 AM Age: 63 years old Clinical indication: Injury or trauma; Fall; Blunt trauma (contusions or hematomas); Elbow; Left; Additional info: Fall, blood thinners, pain TECHNIQUE: Imaging protocol: Radiologic exam of the left humerus. Views: 2 or more views. COMPARISON: CR XR SHOULDER LT MIN 2V 23/07/2023 01:48 FINDINGS: Bones/joints: No acute fracture or dislocation. Soft tissues: Normal. IMPRESSION: No acute fracture or dislocation.
--- NOTE | 2023-07-22 22:48 | XR_ITS ---
PROCEDURE INFORMATION: Exam: XR Left Foot Exam date and time: 07/23/2023 1:48 AM Age: 63 years old Clinical indication: Injury or trauma; Fall; Blunt trauma; Foot; Left; Additional info: Fall, blood thinners, pain TECHNIQUE: Imaging protocol: Radiologic exam of the left foot. Views: 3 or more views. COMPARISON: CR XR ANKLE RT MIN 3V 23/07/2023 01:48 FINDINGS: Bones/joints: Calcaneus enthesophytes. On the oblique image, there is a nonanatomic lucency in the distal aspect of great toe proximal phalanx. Soft tissues: Normal. IMPRESSION: On the oblique image, there is a nonanatomic lucency projecting over the distal aspect of great toe proximal phalanx. Please correlate with point tenderness to exclude acute fracture.
--- NOTE | 2023-07-22 22:48 | XR_ITS ---
PROCEDURE INFORMATION: Exam: XR Left Ankle Exam date and time: 07/23/2023 1:48 AM Age: 63 years old Clinical indication: Injury or trauma; Fall; Blunt trauma; Ankle; Bilateral; Additional info: Fall, blood thinners, pain TECHNIQUE: Imaging protocol: Radiologic exam of the left ankle. Views: 3 or more views. COMPARISON: No relevant prior studies available. FINDINGS: Bones/joints: Calcaneus enthesophytes. No acute fracture or dislocation. Soft tissues: Normal. IMPRESSION: No acute fracture or dislocation.
--- NOTE | 2023-07-22 22:48 | CT_ITS ---
PROCEDURE INFORMATION: Exam: CT Pelvis Without Contrast; Skeletal Exam date and time: 07/23/2023 1:41 AM Age: 63 years old Clinical indication: Injury or trauma; Fall; Blunt trauma (contusions or hematomas); Bilateral; Hip; Additional info: Trauma, critical injury suspected TECHNIQUE: Imaging protocol: Computed tomography of the pelvis without contrast. Exam focused on the skeleton. Radiation optimization: All CT scans at this facility use at least one of these dose optimization techniques: automated exposure control; mA and/or kV adjustment per patient size (includes targeted exams where dose is matched to clinical indication); or iterative reconstruction. COMPARISON: XR SACRUM COCCYX MIN 2V 11/07/2023 12:24 FINDINGS: Reproductive: Status post hysterectomy. Bones/joints: No acute fracture or dislocation. Soft tissues: Please see separate report for abdomen/pelvis. IMPRESSION: No acute fracture or dislocation.
--- NOTE | 2023-07-22 22:48 | XR_ITS ---
PROCEDURE INFORMATION: Exam: XR Right Ankle Exam date and time: 07/23/2023 1:48 AM Age: 63 years old Clinical indication: Injury or trauma; Fall; Blunt trauma; Ankle; Bilateral; Additional info: Fall, blood thinners, pain TECHNIQUE: Imaging protocol: Radiologic exam of the right ankle. Views: 3 or more views. COMPARISON: CR XR FOOT RT MIN 3V 23/07/2023 01:48 FINDINGS: Bones/joints: Calcaneus enthesophytes. No acute fracture or dislocation. Soft tissues: Mild soft tissue swelling around the medial malleolus. IMPRESSION: No acute fracture or dislocation.
--- NOTE | 2023-07-22 22:51 | [facility].EDGENADL ---
Discharge Plan Disposition Patient Disposition: Home, Self-Care Condition: Good Prescriptions Prescriptions: No Action trazodone 50 mg tablet 50 mg PO HS Qty: 90 1RF metoprolol tartrate 50 mg tablet 50 mg PO BID Patient Comments: TAKE 1 TABLET BY MOUTH TWICE DAILY rosuvastatin 20 mg tablet 20 mg PO HS Patient Comments: TAKE 1 TABLET BY MOUTH DAILY gabapentin 300 mg capsule 300 mg PO DIRECTED Rx Instructions: 300mg orally each morning, 600mg each afternoon, and 900mg each bedtime clopidogrel 75 mg tablet 75 mg PO DAILY Patient Comments: TAKE 1 TABLET BY MOUTH DAILY aspirin 325 mg tablet 325 mg PO DAILY nitroglycerin 0.4 mg tablet, sublingual 0.4 mg sublingual Q5-15M PRN (Reason: Chest Pain) albuterol sulfate 90 mcg/actuation HFA aerosol inhaler 2 inh inhalation Q4HP PRN (Reason: Shortness Of Breath) fluticasone furoate-vilanterol [Breo Ellipta] 200-25 mcg/dose blister with device 1 inh inhalation DAILY Patient Comments: INHALE 1 PUFF BY MOUTH DAILY omeprazole 40 mg capsule,delayed release(DR/EC) 40 mg PO DAILY Patient Comments: TAKE 1 CAPSULE BY MOUTH DAILY tramadol 50 mg tablet 50 - 100 mg PO Q6HP PRN (Reason: Pain) ipratropium-albuterol 0.5 mg-3 mg(2.5 mg base)/3 mL solution for nebulization 3 ml inhalation QID PRN (Reason: shortness of breath or wheezing) Qty: 180 1RF furosemide [Lasix] 20 mg tablet 20 mg PO DAILY isosorbide mononitrate 60 mg tablet extended release 24 hr 60 mg PO DAILY amlodipine 5 mg tablet 5 mg PO DAILY Qty: 90 3RF ranolazine 500 mg tablet extended release 12 hr 500 mg PO BID Qty: 60 3RF duloxetine 30 mg capsule,delayed release(DR/EC) 60 mg PO DAILY Qty: 90 3RF bupropion HCl 150 mg tablet extended release 24 hr See Rx Instructions .ROUTE .COMPLEX Qty: 90 0RF Dose Instruction: TAKE 1 TABLET BY MOUTH DAILY Rx Instructions: TAKE 1 TABLET BY MOUTH DAILY dicyclomine 10 mg capsule See Rx Instructions .ROUTE .COMPLEX Qty: 180 3RF Dose Instruction: TAKE 1 CAPSULE TWICE DAILY NEEDED FOR ABDOMINAL PAIN Rx Instructions: TAKE 1 CAPSULE TWICE DAILY NEEDED FOR ABDOMINAL PAIN Referrals Follow up/Referrals: Shiraz Jauregui, [Primary Care Provider] - See instructions Izzy Richmond DPM [Staff Physician] - See instructions (Great toe fx) Activity Restrictions/Add. Instructions Additional Instructions/Restrictions: You were evaluated in the ER. You are appropriate for discharge at this time. Call Dr. Jauregui's office to see who is available to follow-up with your injuries, otherwise contact Dr. Michael's office for primary care follow-up. Make an appointment with Dr. Richmond for reevaluation of your toe fracture. Wear the hard soled shoe and tape your first 2 toes together daily when you are walking. You can take the tape off at night. Take Tylenol if needed for pain, do not exceed the recommended dose on the bottle. Drink plenty of water. Return to the ER with new, worsening, or otherwise concerning symptoms. Clinical Impressions Clinical Impression: Fall, Antiplatelet or antithrombotic long-term use, Minor head injury, Abdominal pain, Pelvic pain, Left shoulder pain, Elbow pain, left, Acute bilateral ankle pain, Acute pain of right foot, Closed fracture of left great toe Discharge ED Provider: Kelly Coy General Adult HPI <Kelly Coy MD - Last Filed: 07/22/23 22:54> General Chief complaint: Fall Stated complaint: AO 07-22-2023 Left side injury from fall Time Seen by Provider: 07/22/23 22:41 Mode of Arrival: Wheelchair Source of Information: Patient and Relative Limitations: No Limitations Description of Symptoms (Recalled from ER Triage Doc. by RN): patient to ED via wheelchair with complaints of fall approx 1900. She reports that her feet got tangled up in family members dog leash and tripped falling to ground, landing in yard on grass. She reports that she did hit her head, denies LOC. Other complaints include left arm/hip pain along with right great toe. Patient currently in sling from home immobilizing left arm. pain 11/15 History of Present Illness HPI narrative: This is a 63-year-old female chronically on antiplatelets presents today with a fall and numerous complaints. She states that a family member's pitbull got the leash wrapped around her leg and threw her up in the air and she landed onto her head on the side of her body as well as on her lower extremities. She states that she hit her head but did not have any loss of consciousness she states that she primarily has left shoulder left elbow bilateral hip and bilateral feet pain. Denies any skin breaking. Denies any nausea vomiting or other complaints. Related Data Home Medications Medication Instructions Recorded Confirmed albuterol sulfate 90 mcg/actuation 2 inh inhalation Q4HP PRN 04/27/22 04/13/23 aerosol inhaler Shortness Of Breath aspirin 325 mg tablet 325 mg PO DAILY Heart disease 04/27/22 04/13/23 clopidogrel 75 mg tablet 75 mg PO DAILY platelet inhibitor 04/27/22 04/13/23 fluticasone furoate 200 1 inh inhalation DAILY COPD 04/27/22 04/13/23 mcg-vilanterol 25 mcg/dose inhalation powder (Breo Ellipta) gabapentin 300 mg capsule 300 mg PO DIRECTED Pain 04/27/22 04/13/23 metoprolol tartrate 50 mg tablet 50 mg PO BID High blood pressure 04/27/22 04/13/23 nitroglycerin 0.4 mg sublingual 0.4 mg sublingual Q5-15M PRN Chest 04/27/22 04/13/23 tablet Pain omeprazole 40 mg capsule,delayed 40 mg PO DAILY Acid reflux 04/27/22 04/13/23 release rosuvastatin 20 mg tablet 20 mg PO HS Cholesterol 04/27/22 04/13/23 tramadol 50 mg tablet 50 - 100 mg PO Q6HP PRN Pain 05/26/22 04/13/23 furosemide 20 mg tablet (Lasix) 20 mg PO DAILY 09/15/22 04/13/23 isosorbide mononitrate 60 mg 60 mg PO DAILY 02/15/23 04/13/23 tablet,extended release 24 hr Previous Rx's Medication Instructions Recorded ipratropium 0.5 mg-albuterol 3 mg 3 ml inhalation QID PRN shortness 05/26/22 (2.5 mg base)/3 mL nebulization of breath or wheezing #180 mL soln amlodipine 5 mg tablet 5 mg PO DAILY #90 tabs 06/21/22 ranolazine 500 mg tablet,extended 500 mg PO BID #60 tabs 07/06/22 release,12 hr duloxetine 30 mg capsule,delayed 60 mg (2 x 30 mg) PO DAILY 02/14/23 release Depression #90 caps trazodone 50 mg tablet 50 mg PO HS sleep #90 tabs 04/12/23 bupropion HCl 150 mg 24 hr tablet, See Rx Instructions .Route 05/24/23 extended release .COMPLEX #90 tabs dicyclomine 10 mg capsule See Rx Instructions .Route 07/12/23 .COMPLEX #180 caps Allergies Allergy/AdvReac Type Severity Reaction Status Date / Time Sulfa (Sulfonamide Allergy Intermediate Hives Verified 04/13/23 13:21 Antibiotics) hydrocodone [From Vicodin] AdvReac Vomiting Verified 04/13/23 13:21 PFSH <Kelly Coy MD - Last Filed: 07/22/23 22:54> PFS Disclaimer: The information contained in this section may have been updated after the patient was seen, as this information can be updated by other users. Medical History (Updated 07/23/23 @ 04:08 by Kirk Quintero MD) Anal fistula Recent heart attack Hypertensive emergency Chronic kidney disease History of common carotid artery stent placement Carotid stenosis Tobacco abuse Insomnia HTN (hypertension), benign Hyperlipidemia GERD (gastroesophageal reflux disease) Diabetes mellitus Depression Low back pain Diverticulosis PVD (peripheral vascular disease) COPD (chronic obstructive pulmonary disease) CVA (cerebral vascular accident) CKD (chronic kidney disease) CAD (coronary artery disease) Arthritis Anxiety Surgical History S/P laparoscopic-assisted sigmoidectomy History of bladder surgery H/O carotid endarterectomy History of implantable cardioverter-defibrillator (ICD) placement Hx of cardiac cath H/O total hysterectomy H/O laparoscopy History of appendectomy H/O colonoscopy Family History Father Coronary artery disease Cancer colon Heart attack Mother Coronary artery disease Heart attack Hypertension Stroke Brother Coronary artery disease Heart attack Diabetes Sister Coronary artery disease Diabetes Heart attack Hyperlipidemia Social History Smoking Status: Current every day smoker tobacco type: cigarettes packs per day: 1 years smoked: 40 quit status: considering quitting alcohol intake: never substance use type: denies use current occupational status: disabled Travel in the last 8 weeks: None marital status: <Kelly Coy MD - Last Filed: 07/22/23 22:54> ROS Obtained: Yes All systems reviewed & no additional complaints except as documented Physical Exam <Kelly Coy MD - Last Filed: 07/22/23 22:54> General General appearance: alert and in no apparent distress Head Head exam: atraumatic Neck Neck exam: Absent tenderness Chest Chest inspection: Absent tenderness (Chest wall compressibility significant tenderness) Respiratory Respiratory exam: Present normal lung sounds bilaterally Cardiovascular Cardiovascular exam: Present regular rate and normal rhythm Abdominal Exam Abdominal exam: Present tenderness (Diffuse abdominal tenderness there is no ecchymosis noted) Extremities Exam Extremities exam: Present other (Patient in a sling from home she has tenderness in the left shoulder left humerus left elbow bilateral hips bilateral ankles and right foot) Neurological Exam Neurological exam: Present alert and oriented X3 Medical Decision Making <Kelly Coy MD - Last Filed: 07/22/23 22:54> Adryan Inquiry Pt receiving controlled substance: No Vital Signs: 07/22/23 22:12 07/22/23 22:16 07/22/23 22:31 Temperature 97.8 F Temperature Source Oral Pulse Rate 55 L 52 L Pulse Rate [Right] 56 L Respiratory Rate 17 Blood Pressure 135/65 122/97 H Blood Pressure [Right Arm] 135/65 Blood Pressure Mean [Right Arm] 88 Blood Pressure Source [Right Arm] Automatic Cuff Blood Pressure Position [Right Arm] Sitting 02 Sat by Pulse Oximetry 95 93 L 94 L Oxygen Delivery Method Room Air 07/22/23 23:00 07/23/23 01:09 07/23/23 03:00 Temperature Temperature Source Pulse Rate 51 L 55 L 53 L Pulse Rate [Right] Respiratory Rate 18 Blood Pressure 127/60 132/62 123/68 Blood Pressure [Right Arm] Blood Pressure Mean [Right Arm] Blood Pressure Source [Right Arm] Blood Pressure Position [Right Arm] 02 Sat by Pulse Oximetry 93 L 93 L 98 Oxygen Delivery Method Room Air 07/23/23 03:30 Temperature Temperature Source Pulse Rate 47 L Pulse Rate [Right] Respiratory Rate Blood Pressure 116/66 Blood Pressure [Right Arm] Blood Pressure Mean [Right Arm] Blood Pressure Source [Right Arm] Blood Pressure Position [Right Arm] 02 Sat by Pulse Oximetry 93 L Oxygen Delivery Method Lab Data Lab Results 07/22/23 23:10: WBC 11.2 H, RBC 4.03 L, Hgb 12.2, Hct 39.4, MCV 97.6, MCH 30.2, MCHC 31.0 L, RDW 13.9, Plt Count 209, MPV 8.5, Neut % (Auto) 69.4, Lymph % (Auto) 20.4, [place] % (Auto) 7.1, Eos % (Auto) 2.1, Baso % (Auto) 1.0, Neut # (Auto) 7.7, Lymph # (Auto) 2.3, [place] # (Auto) 0.8, Eos # (Auto) 0.2, Baso # (Auto) 0.1, PT 11.0, INR 1.02, APTT 28.8, Sodium 142, Potassium 4.5, Chloride 105, Carbon Dioxide 28, Anion Gap 13.5, BUN 20 H, Creatinine 1.60 H, Estimated Creat Clear 38, Estimated GFR 33 L, Est GFR ( Amer) 39 L, Glucose 105 H, Calcium 8.6, Total Bilirubin 0.3, AST 21, ALT 12, Alkaline Phosphatase 80, Total Protein 6.4, Albumin 3.6, Globulin 2.8, Albumin/Globulin Ratio 1.3, Lipase 104 07/22/23 23:40: Urine Color Yellow, Urine Appearance Clear, Urine pH 6.0, Ur Specific Merritt >= 1.030, Urine Protein 1+, Urine Glucose (UA) Negative, Urine Ketones Trace, Urine Blood Negative, Urine Nitrate Negative, Urine Bilirubin Negative, Urine Urobilinogen 1.0, Ur Leukocyte Esterase Trace, Urine RBC None, Urine WBC 10-20, Ur Squamous Epith Cells 3-5, Urine Bacteria 1+ 07/22/23 23:10 07/22/23 23:10 Orders (Tests/Meds): ED MEDICATIONS Generic Name Dose Route Start Last Admin Trade Name Freq PRN Reason Stop Dose Admin Sodium Chloride 10 ml 07/23/23 02:33 07/23/23 02:41 Sodium Chloride 0.9% 10ml Syr (Rad Only) IV 08/22/23 02:32 10 ml NEEDED PRN Administration Maintain IV Site Discontinued Medications Generic Name Dose Route Start Last Admin Trade Name Freq PRN Reason Stop Dose Admin Acetaminophen 1,000 mg 07/22/23 23:52 07/23/23 00:08 Acetaminophen 1,000mg/100ml Vial IV 07/22/23 23:53 1,000 mg ONCE ONE Administration Lactated Ringer's 500 mls @ 999 mls/hr 07/22/23 23:00 07/22/23 23:17 Lactated Ringer's 1000 Ml Bag IV 07/22/23 23:30 999 mls/hr .Q31M YENIFER Administration Iopamidol 200 ml 07/23/23 02:33 07/23/23 02:41 Iopamidol-370 (76%);100ml Bottle IV 07/23/23 02:34 200 ml ONCE ONE Administration Morphine Sulfate 4 mg 07/22/23 22:48 07/22/23 23:17 Morphine 4mg/Ml Syringe IV 07/22/23 22:49 4 mg ONCE ONE Administration Morphine Sulfate 4 mg 07/23/23 01:00 07/23/23 01:03 Morphine 4mg/Ml Syringe IV 07/23/23 01:01 4 mg ONCE ONE Administration Ondansetron HCl 4 mg 07/22/23 22:48 07/22/23 23:17 Ondansetron 4mg/2ml Vial IV 07/22/23 22:49 4 mg ONCE ONE Administration Ondansetron HCl 4 mg 07/23/23 01:00 07/23/23 01:03 Ondansetron 4mg/2ml Vial IV 07/23/23 01:01 4 mg ONCE ONE Administration Sodium Chloride 100 ml 07/23/23 02:33 07/23/23 02:41 0.9 % Sodium Chloride 50 Ml Vial IV 07/23/23 02:34 100 ml ONCE ONE Administration ORDERS Category Date Time Status CT angio abdomen pelvis Stat Cat Scan 07/22/23 22:[address] angio chest - dissection Stat Cat Scan 07/22/23 22:[address] angio head Stat Cat Scan 07/22/23 22:[address] angio neck Stat Cat Scan 07/22/23 22:[address] bony pelvis Stat Cat Scan 07/22/23 22:[address] cervical spine wo con Stat Cat Scan 07/22/23 22:[address] head/brain wo con Stat Cat Scan 07/22/23 22:[address] lumbar spine wo con Stat Cat Scan 07/22/23 22:[address] thoracic spine wo con Stat Cat Scan 07/22/23 22:48 Completed Ankle XR - Left minimum 3 Views [XR ankle LT min 3V] Exams 07/22/23 22:48 Completed Stat Ankle XR -Right minimum 3 Views [XR ankle RT min 3V] Exams 07/22/23 22:48 Completed Stat Elbow XR left mininum 3 views [XR elbow LT min 3V] Stat Exams 07/22/23 22:48 Completed Foot XR right minimum 3 views [XR foot RT min 3V] Stat Exams 07/22/23 22:48 Completed Foot XR right minimum 3 views [XR foot RT min 3V] Stat Exams 07/23/23 03:18 Completed Humerus XR left [XR humerus LT] Stat Exams 07/22/23 22:48 Completed Shoulder XR left minimum 2 views [XR shoulder LT min 2V Exams 07/22/23 22:48 Completed ] Stat CBC w/Auto Diff [Complete Blood Count Auto Diff] Stat Lab 07/22/23 23:10 Completed CMP [Comprehensive Metabolic Panel] Stat Lab 07/22/23 23:10 Completed Lipase Stat Lab 07/22/23 23:10 Completed PT/PTT Stat Lab 07/22/23 23:10 Completed UA [Urinalysis and Microscopic] Stat Lab 07/22/23 23:40 Completed Urine Culture Stat Micro 07/22/23 23:40 Received Medical Decision Narrative: 63-year-old hemodynamically stable female on chronic antiplatelets presenting today after a fall and numerous musculoskeletal injuries given the fact that she hit her head is on aspirin and Plavix with a CT scan of her head and cervical spine. She also complains of significant abdominal pain on my exam even though she does not recall hitting this. Will get trauma scans with the numerous locations of injuries that she is complaining of. Additionally her left shoulder left humerus left elbow bilateral ankles and right feet are tender to palpation will get plain films of those areas as well. Workup just initiated care be transitioned to Dr. Carmencita Quintero 11 PM for further evaluation and treatment. IV fluids pain medicine nausea medicine have been administered as well. <Kirk Quintero MD - Last Filed: 07/23/23 04:11> Vital Signs: 07/22/23 22:12 07/22/23 22:16 07/22/23 22:31 Temperature 97.8 F Temperature Source Oral Pulse Rate 55 L 52 L Pulse Rate [Right] 56 L Respiratory Rate 17 Blood Pressure 135/65 122/97 H Blood Pressure [Right Arm] 135/65 Blood Pressure Mean [Right Arm] 88 Blood Pressure Source [Right Arm] Automatic Cuff Blood Pressure Position [Right Arm] Sitting 02 Sat by Pulse Oximetry 95 93 L 94 L Oxygen Delivery Method Room Air 07/22/23 23:00 07/23/23 01:09 07/23/23 03:00 Temperature Temperature Source Pulse Rate 51 L 55 L 53 L Pulse Rate [Right] Respiratory Rate 18 Blood Pressure 127/60 132/62 123/68 Blood Pressure [Right Arm] Blood Pressure Mean [Right Arm] Blood Pressure Source [Right Arm] Blood Pressure Position [Right Arm] 02 Sat by Pulse Oximetry 93 L 93 L 98 Oxygen Delivery Method Room Air 07/23/23 03:30 Temperature Temperature Source Pulse Rate 47 L Pulse Rate [Right] Respiratory Rate Blood Pressure 116/66 Blood Pressure [Right Arm] Blood Pressure Mean [Right Arm] Blood Pressure Source [Right Arm] Blood Pressure Position [Right Arm] 02 Sat by Pulse Oximetry 93 L Oxygen Delivery Method Lab Data Lab Results 07/22/23 23:10: WBC 11.2 H, RBC 4.03 L, Hgb 12.2, Hct 39.4, MCV 97.6, MCH 30.2, MCHC 31.0 L, RDW 13.9, Plt Count 209, MPV 8.5, Neut % (Auto) 69.4, Lymph % (Auto) 20.4, [place] % (Auto) 7.1, Eos % (Auto) 2.1, Baso % (Auto) 1.0, Neut # (Auto) 7.7, Lymph # (Auto) 2.3, [place] # (Auto) 0.8, Eos # (Auto) 0.2, Baso # (Auto) 0.1, PT 11.0, INR 1.02, APTT 28.8, Sodium 142, Potassium 4.5, Chloride 105, Carbon Dioxide 28, Anion Gap 13.5, BUN 20 H, Creatinine 1.60 H, Estimated Creat Clear 38, Estimated GFR 33 L, Est GFR ( Amer) 39 L, Glucose 105 H, Calcium 8.6, Total Bilirubin 0.3, AST 21, ALT 12, Alkaline Phosphatase 80, Total Protein 6.4, Albumin 3.6, Globulin 2.8, Albumin/Globulin Ratio 1.3, Lipase 104 07/22/23 23:40: Urine Color Yellow, Urine Appearance Clear, Urine pH 6.0, Ur Specific Merritt >= 1.030, Urine Protein 1+, Urine Glucose (UA) Negative, Urine Ketones Trace, Urine Blood Negative, Urine Nitrate Negative, Urine Bilirubin Negative, Urine Urobilinogen 1.0, Ur Leukocyte Esterase Trace, Urine RBC None, Urine WBC 10-20, Ur Squamous Epith Cells 3-5, Urine Bacteria 1+ Orders (Tests/Meds): ED MEDICATIONS Generic Name Dose Route Start Last Admin Trade Name Freq PRN Reason Stop Dose Admin Sodium Chloride 10 ml 07/23/23 02:33 07/23/23 02:41 Sodium Chloride 0.9% 10ml Syr (Rad Only) IV 08/22/23 02:32 10 ml NEEDED PRN Administration Maintain IV Site Discontinued Medications Generic Name Dose Route Start Last Admin Trade Name Freq PRN Reason Stop Dose Admin Acetaminophen 1,000 mg 07/22/23 23:52 07/23/23 00:08 Acetaminophen 1,000mg/100ml Vial IV 07/22/23 23:53 1,000 mg ONCE ONE Administration Lactated Ringer's 500 mls @ 999 mls/hr 07/22/23 23:00 07/22/23 23:17 Lactated Ringer's 1000 Ml Bag IV 07/22/23 23:30 999 mls/hr .Q31M YENIFER Administration Iopamidol 200 ml 07/23/23 02:33 07/23/23 02:41 Iopamidol-370 (76%);100ml Bottle IV 07/23/23 02:34 200 ml ONCE ONE Administration Morphine Sulfate 4 mg 07/22/23 22:48 07/22/23 23:17 Morphine 4mg/Ml Syringe IV 07/22/23 22:49 4 mg ONCE ONE Administration Morphine Sulfate 4 mg 07/23/23 01:00 07/23/23 01:03 Morphine 4mg/Ml Syringe IV 07/23/23 01:01 4 mg ONCE ONE Administration Ondansetron HCl 4 mg 07/22/23 22:48 07/22/23 23:17 Ondansetron 4mg/2ml Vial IV 07/22/23 22:49 4 mg ONCE ONE Administration Ondansetron HCl 4 mg 07/23/23 01:00 07/23/23 01:03 Ondansetron 4mg/2ml Vial IV 07/23/23 01:01 4 mg ONCE ONE Administration Sodium Chloride 100 ml 07/23/23 02:33 07/23/23 02:41 0.9 % Sodium Chloride 50 Ml Vial IV 07/23/23 02:34 100 ml ONCE ONE Administration ORDERS Category Date Time Status CT angio abdomen pelvis Stat Cat Scan 07/22/23 22:[address] angio chest - dissection Stat Cat Scan 07/22/23 22:[address] angio head Stat Cat Scan 07/22/23 22:[address] angio neck Stat Cat Scan 07/22/23 22:[address] bony pelvis Stat Cat Scan 07/22/23 22:[address] cervical spine wo con Stat Cat Scan 07/22/23 22:[address] head/brain wo con Stat Cat Scan 07/22/23 22:[address] lumbar spine wo con Stat Cat Scan 07/22/23 22:[address] thoracic spine wo con Stat Cat Scan 07/22/23 22:48 Completed Ankle XR - Left minimum 3 Views [XR ankle LT min 3V] Exams 07/22/23 22:48 Completed Stat Ankle XR -Right minimum 3 Views [XR ankle RT min 3V] Exams 07/22/23 22:48 Completed Stat Elbow XR left mininum 3 views [XR elbow LT min 3V] Stat Exams 07/22/23 22:48 Completed Foot XR right minimum 3 views [XR foot RT min 3V] Stat Exams 07/22/23 22:48 Completed Foot XR right minimum 3 views [XR foot RT min 3V] Stat Exams 07/23/23 03:18 Completed Humerus XR left [XR humerus LT] Stat Exams 07/22/23 22:48 Completed Shoulder XR left minimum 2 views [XR shoulder LT min 2V Exams 07/22/23 22:48 Completed ] Stat CBC w/Auto Diff [Complete Blood Count Auto Diff] Stat Lab 07/22/23 23:10 Completed CMP [Comprehensive Metabolic Panel] Stat Lab 07/22/23 23:10 Completed Lipase Stat Lab 07/22/23 23:10 Completed PT/PTT Stat Lab 07/22/23 23:10 Completed UA [Urinalysis and Microscopic] Stat Lab 07/22/23 23:40 Completed Urine Culture Stat Micro 07/22/23 23:40 Received Medical Decision Narrative: 63-year-old hemodynamically stable female on chronic antiplatelets presenting today after a fall and numerous musculoskeletal injuries given the fact that she hit her head is on aspirin and Plavix with a CT scan of her head and cervical spine. She also complains of significant abdominal pain on my exam even though she does not recall hitting this. Will get trauma scans with the numerous locations of injuries that she is complaining of. Additionally her left shoulder left humerus left elbow bilateral ankles and right feet are tender to palpation will get plain films of those areas as well. Workup just initiated care be transitioned to Dr. Kirk Quintero 11 PM for further evaluation and treatment. IV fluids pain medicine nausea medicine have been administered as well. Quintero: Upon my assumption of care patient is stable and resting comfortably. Labs and imaging pending. I agree with the workup plan from Dr. Coy. Labs personally reviewed demonstrate mild leukocytosis, no anemia, PT INR normal, APTT normal, sodium, potassium, chloride normal, findings of CKD, stable from prior, UA negative for findings of infection, there are WBCs present however is contaminated with squamous cells, negative for nitrates. Given patient is asymptomatic from a urinary standpoint, will not treat. X-rays of the upper extremity were personally interpreted and I do not appreciate any acute osseous injury. X-rays of the lower extremity are personally interpreted and I do appreciate abnormality of the left great toe. Unfortunately the left foot was imaged under an order for right foot imaging, so x-ray of the right foot had to be ordered a second time for the correct imaging to be performed. No acute osseous injury in the right foot. CTA chest, abdomen, pelvis were personally interpreted. Patient has findings of vasculopathy, consistent with her known history. She does not have any acute traumatic injuries on my personal interpretation. See radiology read for final interpretation. CT lumbar spine has degenerative changes with mild to moderate spinal stenosis. Patient has no neurologic deficits. This can be followed outpatient. Remainder of CT imaging was reviewed and does not demonstrate acute traumatic injury. Patient has multiple chronic findings. While in the ER patient had received IV morphine for pain management, after her second dose she desaturated to the upper 80s. She was on nasal cannula, however as she metabolized this medication, nasal cannula was removed. She is saturating 92% on room air. She does have a prescription for oxygen use at home if needed as well. Patient was placed in a hard soled shoe and her toes were dave taped for fracture of the left great toe. She was instructed on care of this as well as given follow-up with Dr. Richmond's office. She has ambulated to the restroom multiple times in the ER. She continues to be stable and appropriate for discharge. Patient was given instructions on symptomatic management, follow up instructions, and return precautions for the emergency department. Patient indicated understanding and was discharged in stable condition. Critical Care <Kelly Coy MD - Last Filed: 07/22/23 22:54> Critical Care Time Critical Care Time: No
[2023-07-22 23:00] VITALS: BP 127/60; PULSE 51; RESP 18; O2SAT 93
[2023-07-22] MEDS: ONDANSETRON 4MG/2ML VIAL 4 MG IV (23:17)
[2023-07-22] MEDS: MORPHINE 4MG/ML SYRINGE 4 MG IV (23:17)
[2023-07-22] MEDS: LACTATED RINGERS 1000ML 500 ML 999 ML IV (23:17)
[2023-07-22 23:38] LABS: Basophils # 0.1 K/mm3 (0-0.2); Eosinophils # 0.2 K/mm3 (0.0-0.4); Eosinophils % 2.1 % (0.1-12.0); Hematocrit 39.4 % (37.0-47.0); Hemoglobin 12.2 g/dL (12.2-16.2); Lymphocytes # 2.3 K/mm3 (0.7-4.5); Lymphocytes % 20.4 % (10-50); Mean Corpuscular Hemoglobin 30.2 pg (27.0-31.2); Mean Corpuscular Volume 97.6 fl (81-99); Mean Platelet Volume 8.5 fl (7.4-10.4); Monocytes # 0.8 K/mm3 (0.1-1.0); Monocytes % 7.1 % (1.7-9.3); Neutrophils # 7.7 K/mm3 (1.8-7.8); Neutrophils % 69.4 % (37.0-80.0); Platelet Count 209 K/mm3 (142-424); Red Blood Count 4.03 M/mm3 (4.20-5.40); Red Cell Distribution Width 13.9 % (11.5-17.5); White Blood Count 11.2 K/mm3 (4.8-10.8)
[2023-07-22 23:45] LABS: Alanine Aminotransferase 12 U/L (12-78); Albumin Level 3.6 g/dl (3.5-5.0); Albumin/Globulin Ratio 1.3 (1.1-1.8); Alkaline Phosphatase 80 U/L (38-126); Anion Gap 13.5 mEq/L (5-15); Aspartate Amino Transferase 21 U/L (14-36); Bilirubin,Total 0.3 mg/dl (0.2-1.3); Blood Urea Nitrogen 20 mg/dl (7-17); Calcium 8.6 mg/dl (8.4-10.2); Carbon Dioxide 28 mmol/L (22.0-30.0); Chloride 105 mmol/L (98-107); Creatinine Clearance Estimated 38 mL/min (50-200); Estimated Glomerular Filt Rate 33 ml/min (>60); GFR (African American) 39 ML/MIN (>60); Globulin 2.8 g/dL (1.3-3.2); Glucose 105 mg/dl (74-100); Lipase 104 U/L (23-300); Potassium 4.5 mmoL/L (3.5-5.1); Sodium 142 mmol/L (136-145); Total Protein,Serum 6.4 g/dl (6.3-8.2)
[2023-07-22 23:47] LABS: Activated Partial Thrombo Time 28.8 seconds (22.8-30.6); INR 1.02 (0.9-1.1)
[2023-07-23 00:01] LABS: Microscopic, Urine URINE MICROSCOPIC (MICROSCOPIC)
[2023-07-23 00:07] LABS: Appearance,Urine CLEAR (Clear); Bilirubin,Urine Negative (Negative); Blood, Urine Negative (Negative); Color,Urine YELLOW (Yellow); Glucose,Urine (UA) Negative (Negative); Ketones,Urine TRACE (Negative); Leukocyte Esterase,Urine TRACE (Negative); Nitrate,Urine Negative (Negative); Protein,Urine 1+ (Negative); Specific Gravity, Urine >= 1.030 (1.005-1.030)
[2023-07-23] MEDS: ACETAMINOPHEN 1,000MG/100ML VIAL 1000 MG IV (00:08)
[2023-07-23 00:40] LABS: Bacteria,Urine 1+ /lpf
[2023-07-23] MEDS: MORPHINE 4MG/ML SYRINGE 4 MG IV (01:03)
[2023-07-23] MEDS: ONDANSETRON 4MG/2ML VIAL 4 MG IV (01:03)
[2023-07-23 01:09] VITALS: BP 132/62; PULSE 55; O2SAT 93
[2023-07-23] MEDS: IOPAMIDOL-370 (76%);100ML BOTTLE 200 ML IV (02:41)
[2023-07-23] MEDS: 0.9 % SODIUM CHLORIDE 50 ML VIAL 100 ML IV (02:41)
[2023-07-23] MEDS: SODIUM CHLORIDE 0.9% 10ML SYR (RAD ONLY) 10 ML IV (02:41)
[2023-07-23 03:00] VITALS: BP 123/68; PULSE 53; O2SAT 98
--- NOTE | 2023-07-23 03:18 | XR_ITS ---
PROCEDURE INFORMATION: Exam: XR Right Foot Exam date and time: 07/23/2023 3:15 AM Age: 63 years old Clinical indication: Injury or trauma; Fall; Blunt trauma; Foot; Right; Additional info: Bruising to right foot TECHNIQUE: Imaging protocol: Radiologic exam of the right foot. Views: 3 or more views. COMPARISON: CR XR ANKLE RT MIN 3V 23/07/2023 01:48 FINDINGS: Bones/joints: Calcaneus enthesophytes. No acute fracture or dislocation. Soft tissues: Normal. IMPRESSION: No acute fracture or dislocation.
[2023-07-23 03:30] VITALS: BP 116/66; PULSE 47; O2SAT 93
--- NOTE | 2023-07-23 03:52 | PC.NURSE ---
Assisted patient to restroom at this time. Patient ambulated with walker per patient preference utilizing a walker. Standby assist.
--- NOTE | 2023-07-23 03:57 | PC.NURSE ---
patient assisted back to bed from bathroom
[2023-07-23 04:10] VITALS: BP 116/66; PULSE 63; RESP 16; TEMP 36.6; O2SAT 92
== END 2023-07-23 04:18 | disposition home or self-care (01) ==
PROVIDERS: Emergency Provider Student in an Organized Health Care Education/Training Program; PCP Internal Medicine
DX: S09.90XA Unspecified injury of head, initial encounter (principal); R10.2 Pelvic and perineal pain; S92.402A Displaced unspecified fracture of left great toe, initial encounter for closed fracture; M79.671 Pain in right foot; M25.571 Pain in right ankle and joints of right foot; M25.572 Pain in left ankle and joints of left foot; M25.512 Pain in left shoulder; M25.522 Pain in left elbow; B96.89 Other specified bacterial agents as the cause of diseases classified elsewhere; W18.39XA Other fall on same level, initial encounter; F17.210 Nicotine dependence, cigarettes, uncomplicated; J44.9 Chronic obstructive pulmonary disease, unspecified; E11.22 Type 2 diabetes mellitus with diabetic chronic kidney disease; N18.9 Chronic kidney disease, unspecified; K21.9 Gastro-esophageal reflux disease without esophagitis; I73.9 Peripheral vascular disease, unspecified; I65.29 Occlusion and stenosis of unspecified carotid artery; E78.5 Hyperlipidemia, unspecified; I11.9 Hypertensive heart disease without heart failure; I25.10 Atherosclerotic heart disease of native coronary artery without angina pectoris; Z95.810 Presence of automatic (implantable) cardiac defibrillator; Z86.73 Personal history of transient ischemic attack (TIA), and cerebral infarction without residual deficits
CPT/HCPCS: 70450; 70496; 70498; 71275; 72125; 72128; 72131; 72192; 73030; 73060; 73080; 73610; 73630; 74174; 80053; 81001; 83690; 85025; 85610; 85730; 87086; 96374; 96375; 96376; 99285; J0131; J2270; J2405; J7120; Q9967

== ENCOUNTER 2023-09-22 15:09 | Outpatient (CLI) | payer MEDICARE, SELFPAY ==
--- NOTE | 2023-09-22 15:13 | CT_ITS ---
FINAL REPORT TECHNIQUE: Axial imaging of the lumbar spine was obtained without contrast. Sagittal and coronal reformatted images were also obtained and reviewed. This study was performed with techniques to keep radiation doses as low as reasonably achievable (ALARA). Individualized dose reduction techniques using automated exposure control or adjustment of mA and/or kV according to the patient's size were employed. CLINICAL HISTORY: LUMBOSACRAL RADICULOPATHY COMPARISON: 07/23/2023 FINDINGS: There is no fracture. There is a mild right curvature of the lumbar spine.. The disc spaces are preserved.There is no evidence of significant central canal stenosis. L1-L2: An annular bulge is present with osteophytes. No evidence of significant foraminal or canal stenosis is seen. L2-L3: An annular bulge is present with mild bilateral neural foraminal narrowing. L3-L4: An annular bulge is present with facet arthropathy and osteophytes. There is mild bilateral neuroforaminal narrowing, and mild canal stenosis with an AP canal diameter of 8 mm. L4-L5: An annular bulge is present, with facet arthropathy. There is a probable left paracentral disc protrusion present. There is moderate bilateral neural foraminal narrowing, and mild canal stenosis with an AP canal diameter of 7 mm. L5-S1: An annular bulge is present with facet arthropathy and osteophytes. There is moderate right and mild left neuroforaminal narrowing, as well as right lateral recess stenosis. IMPRESSION: Multilevel degenerative changes present, most prominent at the L4-5 and L5-S1 levels. Given differences in technique no significant changes are noted since the prior CT of July. However would suggest MRI for further evaluation if clinically indicated.. Reviewed, Interpreted and Dictated by Sameer White III, MD Transcribed by Teena Thomas Authenticated and [facility]
== END 2023-09-22 23:59 | disposition home or self-care (01) ==
LOC: RAD 15:10
PROVIDERS: PCP Internal Medicine; Visit Provider Nurse Practitioner
DX: M54.17 Radiculopathy, lumbosacral region (principal); M54.12 Radiculopathy, cervical region
CPT/HCPCS: 72131

== ENCOUNTER 2024-01-18 11:33 | Inpatient (IN) | payer MEDICARE, SELFPAY ==
[2024-01-18] VITALS (20 sets, daily range): BP systolic 97–140; BP diastolic 61–88; PULSE 60–88; RESP 16–20; TEMP 36.4–36.8; O2SAT 90–95; BMI 26.5
--- NOTE | 2024-01-18 | IR_ITS ---
APPROVED REPORT Patient Location: [employer] Machinery Engineer: Soren Escobedo RT (R) PROCEDURES Left heart catheterization Left ventriculogram Selective coronary angiogram Drug-eluting stent deployment to the proximal and mid LAD Drug-eluting stent deployment to the first diagonal artery Attempted angioplasty of a chronically occluded circumflex artery Attempted angioplasty of a chronically occluded right coronary artery INDICATION Acute non-ST ovation myocardial infarction, Coronary artery disease, Three-vessel coronary disease Informed consent was obtained prior to the procedure. COMPLICATIONS None Estimated Blood Loss: Less than 10 mls TECHNIQUE One percent lidocaine used to anesthetize the right anterior aspect of the wrist. The right radial artery was accessed via the Seldinger technique. A 6 Micronesian sheath was placed in the right radial artery. 2.5 mg of Verapamil, 800 mcg of nitroglycerin, 1mg Lidocaine and 5000 U Heparin were given through the arterial sheath. The 6 Micronesian JL 3 guide catheter was also used to perform left heart catheterization, left ventriculogram and selective coronary angiogram. At the end the diagnostic angiogram 2 wires were placed down the LAD system. 1 in the LAD and the other in the first diagonal artery. A 2.5 x 12 mm noncompliant balloon was used to dilate the ostial proximal diagonal artery. Following this a 3 mm x 12 mm [place] frontier stent was deployed in the mid LAD at 20 kadeem reducing the stenosis to 0%. An additional 3.5 x 38 mm [place] frontier stent was placed in the proximal to mid LAD overlapping the proximal aspect of the first LAD stent placed and then deployed at 18 kadeem. An additional wire was then placed into the first diagonal artery through the side struts. A 2.5 mm balloon was used to open the struts going into the diagonal artery and a 3 mm x 22 mm [place] frontier stent was placed in the LAD extending into the ostial and proximal diagonal artery and then deployed at 14 kadeem. The balloon was brought back a half the length and then deployed at 20 kadeem to post dilate. Following this a 3.5 x 12 mm noncompliant balloon was placed in the proximal and midportion of the LAD stent and deployed at 24 kadeem to post dilate and make sure none of the diagonal stent struts were in the lumen. SARAN-3 flow was present before and after the procedure. After achieving excellent angiograph results wire was used to attempt revascularizing the circumflex artery. This proved to be a chronic occlusion. The apparatus was removed and placed in the right coronary artery which was known to be occluded based on the left coronary artery angiography. Wires were attempted to traverse the chronic occlusion however after this failed the apparatus was removed the sheath was removed hemostasis was achieved using TR banding patient was transferred to the postop putting in stable condition ANGIOGRAPHIC RESULTS The left main artery Has a distal 20% stenosis The left anterior descending artery Has a proximal concentric 70% stenosis with an additional 80% mid vessel stenosis. A large first diagonal artery has an ostial 80 to 90% stenosis The circumflex artery Gives rise to a medium size ramus intermedius which is patent. The circumflex artery is 100% occluded in the proximal aspect of the stent. The distal vessel fills via left to left collaterals The right coronary artery Is large and dominant and proximally occluded. The distal vessel fills via [id number] collaterals The HERNANDEZ ventriculogram reveals Dilated ventricle ejection fraction 30 to 35% The left ventricular end-diastolic pressure 20 mmHg IMPRESSION Coronary artery disease as described above Successful stenting the proximal and mid LAD critical disease reduced to 0% with 2 contiguous drug-eluting stents Successful stenting of the large first diagonal artery critical disease reduced to 0% with 1 drug-eluting stent Attempted yet unsuccessful revascularization of a chronically occluded circumflex artery and right coronary Reduced ejection fraction with elevated LVEDP PLAN 1. Dual antiplatelet therapy 2. Standard therapy for systolic heart failure 3. LDL less than 55 to proceed with high intensity statin 4. Avoidance of tobacco products 5. Risk factor modification 6. Cardiac rehabilitation 7. Official echocardiogram 8. Standard therapy for ischemic heart disease Electronically signed by : Shiraz Weiss MD 01/18/2024 15:09:51
--- NOTE | 2024-01-18 11:34 | ECG_ITS ---
APPROVED REPORT Exam: Resting ECG HR:88 bpm ECG Measurements Heart Rate 88 AXES NH 152 P 71 QRSd 112 QRS 55 QT 352 T 89 QTc 398 Conclusion SINUS RHYTHM WITH FREQUENT VENTRICULAR PREMATURE COMPLEXES POSSIBLE INFERIOR MYOCARDIAL INFARCTION , PROBABLY OLD [30 ms Q WAVE IN II/aVF] ABNORMAL RHYTHM ECG Electronically signed by : LUIS WALTERS, 01/27/2024 07:12:47
--- NOTE | 2024-01-18 11:54 | XR_ITS ---
FINAL REPORT CLINICAL HISTORY: chest pain. cough. COMPARISON: None FINDINGS: Two views of the chest were obtained. A left subclavian ICD is present. The heart size and pulmonary vascularity are within normal limits. The mediastinum is normal. No acute pulmonary abnormality is identified. There is no pneumothorax. The bony thorax is intact. IMPRESSION: No active cardiopulmonary disease. Reviewed, Interpreted and Dictated by Sameer White III, MD Transcribed by Magy Powell Authenticated and [facility]
[2024-01-18 12:06] LABS: Basophils # 0.1 K/mm3 (0-0.2); Basophils % 0.9 % (0.1-2.0); Eosinophils # 0.1 K/mm3 (0.0-0.4); Eosinophils % 0.7 % (0.1-12.0); Hematocrit 47.2 % (37.0-47.0); Hemoglobin 15.9 g/dL (12.2-16.2); Lymphocytes # 1.9 K/mm3 (0.7-4.5); Lymphocytes % 21.4 % (10-50); Mean Corpuscular HGB Conc 33.8 g/dL (31.8-35.4); Mean Corpuscular Hemoglobin 31.5 pg (27.0-31.2); Mean Corpuscular Volume 93.4 fl (81-99); Mean Platelet Volume 8.6 fl (7.4-10.4); Monocytes # 0.7 K/mm3 (0.1-1.0); Monocytes % 7.9 % (1.7-9.3); Neutrophils # 6.3 K/mm3 (1.8-7.8); Neutrophils % 69.2 % (37.0-80.0); Platelet Count 216 K/mm3 (142-424); Red Blood Count 5.06 M/mm3 (4.20-5.40); Red Cell Distribution Width 14.1 % (11.5-17.5); White Blood Count 9.1 K/mm3 (4.8-10.8)
[2024-01-18 12:10] LABS: Chloride 110 mmol/L (98-107); Potassium 4.3 mmoL/L (3.5-5.1); Sodium 137 mmol/L (136-145)
[2024-01-18 12:13] LABS: Alanine Aminotransferase 21 U/L (12-78); Albumin/Globulin Ratio 1.3 (1.1-1.8); Alkaline Phosphatase 115 U/L (38-126); Anion Gap 8.3 mEq/L (5-15); Aspartate Amino Transferase 87 U/L (14-36); Bilirubin,Total 0.7 mg/dl (0.2-1.3); Blood Urea Nitrogen 16 mg/dl (7-17); Carbon Dioxide 23 mmol/L (22.0-30.0); Creatinine Clearance Estimated 52 mL/min (50-200); Estimated Glomerular Filt Rate 45 ml/min (>60); GFR (African American) 55 ML/MIN (>60)
[2024-01-18 12:14] LABS: Calcium 9.1 mg/dl (8.4-10.2); Glucose 137 mg/dl (74-100)
--- NOTE | 2024-01-18 12:26 | [facility].EDCP ---
Discharge Plan Disposition Patient Disposition: Admitted Condition: Serious Clinical Impressions Clinical Impression: Acute non-ST elevation myocardial infarction (NSTEMI) Discharge ED Provider: Keith Philippe HPI <JAMIL Hernandez - Last Filed: 01/18/24 12:54> General Chief Complaint: Chest Pain Stated Complaint: cp Time Seen by Provider: 01/18/24 12:26 Mode of Arrival: Ambulatory Source of Information: Patient Limitations: No Limitations Description of Symptoms (Recalled from ER Triage Doc. by RN): c/o chest pain since last night that runs through left chest into left arm and into her back, took 3 nitro at home with no improvement. History of Present Illness HPI narrative: Patient presents for evaluation of chest pain. Patient states that she awoke around 2:30 in the morning with substernal chest pain that radiated to her neck and her right arm. She took 3 nitroglycerin without relief. Patient did not seek care but has been having chest pain continuously since 2:30 in the morning. She states it was a 10 out of 10 and currently is 5 out of 10. She does have a history of coronary artery disease status post stents previously, reported heart failure with reduced ejection fraction, COPD not on chronic oxygen, history of chronic kidney disease, patient has an AICD reportedly, history of hypertension hyperlipidemia and type 2 diabetes mellitus. 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 There was apparently a postoperative respiratory event although the details are unclear patient had to be admitted for that. It was a general anesthetic procedure. Related Data Home Medications ?Medication ?Instructions ?Recorded ?Confirmed clopidogrel 75 mg tablet 75 mg PO DAILY 04/27/22 01/18/24 gabapentin 300 mg capsule 600 mg PO 1300 04/27/22 01/18/24 metoprolol tartrate 50 mg tablet 50 mg PO BID 04/27/22 01/18/24 furosemide 20 mg tablet (Lasix) 20 mg PO DAILY 09/15/22 01/18/24 isosorbide mononitrate 60 mg 60 mg PO DAILY 02/15/23 01/18/24 tablet,extended release 24 hr bupropion HCl 150 mg 24 hr tablet, 150 mg PO DAILY 01/18/24 01/18/24 extended release dicyclomine 10 mg capsule 10 mg PO BIDP PRN Abdominal Pain 01/18/24 01/18/24 duloxetine 30 mg capsule,delayed 60 mg PO DAILY 01/18/24 01/18/24 release gabapentin 300 mg capsule 300 mg PO DAILY 01/18/24 01/18/24 gabapentin 300 mg capsule 900 mg PO HS 01/18/24 01/18/24 nifedipine 30 mg tablet,extended 30 mg PO DAILY 01/18/24 01/18/24 release 24 hr oxycodone 5 mg tablet 5 mg PO BIDP PRN Moderate Pain 01/18/24 01/18/24 (Scale Score 5-6) tramadol 50 mg tablet 50 mg PO BIDP PRN Mild Pain (Scale 01/18/24 01/18/24 Score 1-4) trazodone 50 mg tablet 50 mg PO HS 01/18/24 01/18/24 Allergies Allergy/AdvReac Type Severity Reaction Status Date / Time Sulfa (Sulfonamide Allergy Intermediate Hives Verified 04/13/23 13:21 Antibiotics) hydrocodone (From Vicodin) AdvReac Vomiting Verified 04/13/23 13:21 [facility] <JAMIL Hernandez - Last Filed: 01/18/24 12:54> [facility] Disclaimer: The information contained in this section may have been updated after the patient was seen, as this information can be updated by other users. Medical History Anal fistula Recent heart attack Hypertensive emergency Chronic kidney disease History of common carotid artery stent placement Carotid stenosis Tobacco abuse Insomnia HTN (hypertension), benign Hyperlipidemia GERD (gastroesophageal reflux disease) Diabetes mellitus Depression Low back pain Diverticulosis PVD (peripheral vascular disease) COPD (chronic obstructive pulmonary disease) CVA (cerebral vascular accident) CKD (chronic kidney disease) CAD (coronary artery disease) Arthritis Anxiety Surgical History S/P laparoscopic-assisted sigmoidectomy History of bladder surgery H/O carotid endarterectomy History of implantable cardioverter-defibrillator (ICD) placement Hx of cardiac cath H/O total hysterectomy H/O laparoscopy History of appendectomy H/O colonoscopy Family History Father Coronary artery disease Cancer colon Heart attack Mother Coronary artery disease Heart attack Hypertension Stroke Brother Coronary artery disease Heart attack Diabetes Sister Coronary artery disease Diabetes Heart attack Hyperlipidemia Social History (Updated 01/18/24 @ 15:37 by Antionette Dillard RN) Smoking Status: Current every day smoker tobacco type: cigarettes packs per day: 1 years smoked: 40 quit status: considering quitting alcohol intake: never substance use type: denies use current occupational status: disabled Travel in the last 8 weeks: None marital status: Have you lived/traveled outside [place] in past 30 days?: No Contact w/someone who lives/traveled outside [place] past 30 days?: No Exposure to someone with infectious disease in past 14 days?: No Do you have a fever (greater than 100.4 F or 38 C)?: No Have you tested positive for COVID-19: No Exposed to someone with COVID-19 in past 14 days?: No Do you have a sore throat?: No Do you have a cough?: No Do you have any weakness?: No Are you experiencing any nausea/vomitting?: No Do you have any diarrhea?: No Are you experiencing any unusual bleeding?: No Do you have any muscle aches/pain?: No Do you have any abdominal pain?: No Are you experiencing loss of taste or smell?: No Other Medical History Have you received the Flu Vaccine for this season: No Have you received the Pneumonia Vaccine: Yes <JAMIL Hernandez - Last Filed: 01/18/24 12:54> ROS Obtained: Yes Systems reviewed as appropriate & no additional complaints except as documented Physical Exam <JAMIL Hernandez - Last Filed: 01/18/24 12:54> General General appearance: alert and in no apparent distress Respiratory Respiratory exam: Present normal lung sounds bilaterally; Absent respiratory distress Cardiovascular Cardiovascular exam: Present regular rate and normal rhythm Neurological Exam Neurological exam: Present alert and oriented X3 HEART Score <JAMIL Hernandez - Last Filed: 01/18/24 12:54> HEART Score HEART Score assessment performed?: Yes History (anamnesis): Highly suspicious ECG: Non-specific disturbance Age: 45-65 years Risk factors: Atherosclerosis history Troponin: > 3x normal limit HEART Score: 8 <Keith Philippe MD - Last Filed: 01/18/24 16:59> HEART Score HEART Score: 8 Critical Care <JAMIL Hernandez - Last Filed: 01/18/24 12:54> Critical Care Time Critical Care Time: Yes Attestation: On 01/18/24, the high probability of a clinically significant, sudden or life threatening deterioration of the following system(cardiovascular) required my full and direct attention, intervention and personal management. The time I documented below is in addition to time spent performing reported procedures but includes the following listed in this critical care notation. Total Time Total Critical Care Time: 30 Medical Decision Making <JAMIL Hernandez - Last Filed: 01/18/24 12:54> Medical Records Medical records reviewed: Yes I reviewed the patient's medical records. [facility] Inquiry Pt receiving controlled substance: No Vital Signs Vital Signs: 01/18/24 11:33 01/18/24 11:53 01/18/24 13:07 Temperature 98.2 F Temperature Source Oral Pulse Rate 81 88 Pulse Rate [Left Radial] 81 Respiratory Rate 20 20 Blood Pressure 140/88 Blood Pressure [Right Arm] 136/84 Blood Pressure Mean [Right Arm] 101 02 Sat by Pulse Oximetry 91 L Oxygen Delivery Method Room Air Oxygen Flow Rate (LPM) 94 Lab Data Lab results reviewed: Yes I reviewed the patient's lab results. Labs: Lab Results 01/18/24 11:39: WBC 9.1, RBC 5.06, Hgb 15.9, Hct 47.2 H, MCV 93.4, MCH 31.5 H, MCHC 33.8, RDW 14.1, Plt Count 216, MPV 8.6, Neut % (Auto) 69.2, Lymph % (Auto) 21.4, [place] % (Auto) 7.9, Eos % (Auto) 0.7, Baso % (Auto) 0.9, Neut # (Auto) 6.3, Lymph # (Auto) 1.9, [place] # (Auto) 0.7, Eos # (Auto) 0.1, Baso # (Auto) 0.1, Sodium 137, Potassium 4.3, Chloride 110 H, Carbon Dioxide 23, Anion Gap 8.3, BUN 16, Creatinine 1.20 H, Estimated Creat Clear 52, Estimated GFR 45 L, Est GFR ( Amer) 55 L, Glucose 137 H, Calcium 9.1, Total Bilirubin 0.7, AST 87 H, ALT 21, Alkaline Phosphatase 115, Troponin I 16.50 H, Total Protein 7.0, Albumin 4.0, Globulin 3.0, Albumin/Globulin Ratio 1.3 01/18/24 11:39 01/18/24 11:39 Response Orders (Tests/Meds): ED MEDICATIONS Generic Name Dose Route Start Last Admin Trade Name Freq PRN Reason Stop Dose Admin Aspirin 81 mg 01/19/24 09:00 Aspirin Ec 81mg Tablet PO 02/18/24 08:59 DAILY [facility] Carvedilol 3.125 mg 01/18/24 21:00 Carvedilol 3.125mg Tablet PO 02/17/24 20:59 BID [facility] Clopidogrel Bisulfate 75 mg 01/19/24 09:00 Clopidogrel 75mg Tab PO 02/18/24 08:59 DAILY [facility] Fentanyl Citrate 50 mcg 01/18/24 12:46 01/18/24 14:46 Fentanyl 100mcg/2ml Vial IV 01/19/24 00:46 150 mcg Q3MINP PRN Administration Sedation Fentanyl Citrate 25 mcg 01/18/24 12:46 Fentanyl 100mcg/2ml Vial IV 01/19/24 00:46 Q3MINP PRN Sedation Flumazenil 0.2 mg 01/18/24 12:46 Flumazenil 0.1mg/Ml 5ml Vial IV 01/19/24 00:46 NEEDED PRN Sedation Sodium Chloride 1,000 mls @ 25 mls/hr 01/18/24 13:00 01/18/24 13:34 Sod Chloride 0.9% 500ml Bag IV 01/19/24 12:46 25 mls/hr .Q25H YENIFER Administration Midazolam HCl 1 mg 01/18/24 12:46 Midazolam 2mg/2ml Vial IV 01/19/24 00:46 Q3MINP PRN Sedation Midazolam HCl 1 mg 01/18/24 12:46 01/18/24 14:46 Midazolam Hcl 1mg/Ml 5ml Vial IV 01/19/24 00:46 8 mg Q3MINP PRN Administration Sedation Miscellaneous 1 each 01/18/24 14:28 Consider Pt For Dual Antiplatelet Therapy At Discharge-Stent NOTAPPLIC 02/17/24 14:27 NEEDED PRN Reminder for s/p stent Naloxone HCl 0.4 mg 01/18/24 12:46 Naloxone 0.4mg/Ml Vial IV 01/19/24 00:46 Q5MINP PRN Decreased Respirations Nitroglycerin 0.4 mg 01/18/24 14:28 Nitroglycerin 0.4mg Sl Tablet SL 02/17/24 14:27 Q5MINP PRN Chest Pain Ranolazine 500 mg 01/18/24 21:00 Ranolazine 500mg Er Tablet PO 02/17/24 20:59 BID YENIFER Sacubitril/Valsartan 1 each 01/18/24 21:00 Sacubitril/Valsartan 24-26mg Tablet PO 02/17/24 20:59 BID YENIFER Discontinued Medications Generic Name Dose Route Start Last Admin Trade Name Freq PRN Reason Stop Dose Admin Aspirin 325 mg 01/18/24 12:31 01/18/24 12:37 Aspirin 325mg Tablet PO 01/18/24 12:32 325 mg ONCE ONE Administration Clopidogrel Bisulfate 75 mg 01/18/24 14:47 01/18/24 15:03 Clopidogrel 75mg Tab PO 01/18/24 14:48 75 mg ONCE ONE Administration Diphenhydramine HCl 50 mg 01/18/24 12:46 01/18/24 13:34 Diphenhydramine 50mg/Ml Vial IV 01/18/24 12:47 50 mg ONCE ONE Administration Heparin Sodium (Porcine) 10,000 unit 01/18/24 12:46 01/18/24 14:49 Heparin 1,000 Units/Ml 10ml Vial ([facility]) IV 01/18/24 16:46 2,000 unit NEEDED PRN Administration [facility] Heparin Sodium/Sodium Chloride 3,000 unit 01/18/24 12:46 01/18/24 13:34 Heparin 1,000 Units/500ml Ns ([facility]) IV 01/18/24 12:47 3,000 unit ONCE ONE Administration Hydralazine HCl 20 mg 01/18/24 12:46 Hydralazine 20mg/Ml Vial IV 01/18/24 16:46 ONCE PRN sbp>160 Adenosine 180 mg/ Sodium 90 mls @ 367.411 mls/hr 01/18/24 12:46 Chloride IV 01/18/24 16:46 ONCE PRN fractional flow reserve 180 MCG/KG/MIN Adenosine 90 mg/ Sodium 90 mls @ 734.821 mls/hr 01/18/24 12:46 Chloride IV 01/18/24 16:46 ONCE PRN fractional flow reserve 180 MCG/KG/MIN Iopamidol 160 ml 01/18/24 15:41 01/18/24 15:42 Iopamidol-370 (76%);100ml Bottle IV 01/18/24 15:42 160 ml ONCE ONE Administration Labetalol HCl 20 mg 01/18/24 12:46 Labetalol 20mg/4ml Syringe IV 01/18/24 16:46 ONCE PRN sbp>160 Lidocaine HCl 20 ml 01/18/24 12:46 01/18/24 13:33 Lidocaine 1% 10ml Mdv IJ 01/18/24 12:47 10 ml ONCE ONE Administration Lidocaine HCl 20 ml 01/18/24 12:46 01/18/24 13:34 Lidocaine 1% 5ml Pf Vial IJ 01/18/24 12:47 Not Given ONCE ONE Nitroglycerin 800 mcg 01/18/24 12:46 01/18/24 13:35 Nitroglycerin 800mcg/8ml Syr ([facility]) IA 01/18/24 16:46 800 mcg NEEDED PRN Administration [facility] Support Specialist Protamine Sulfate 50 mg 01/18/24 12:46 Protamine Sulfate 50mg/5ml Vial ([facility]) IV 01/18/24 16:46 ONCE PRN act>200 Verapamil HCl 2.5 mg 01/18/24 12:46 01/18/24 13:34 Verapamil 2.5mg/Ml 2ml Vial IV 01/18/24 12:47 2.5 mg ONCE ONE Administration ORDERS Category Date Time Status XR chest 2V Stat Exams 01/18/24 11:54 Completed Basic Metabolic Panel AMLAB Lab 01/19/24 06:00 Ordered Complete Blood Count Auto Diff AMLAB Lab 01/19/24 06:00 Ordered Complete Blood Count Auto Diff Stat Lab 01/18/24 11:39 Completed Comprehensive Metabolic Panel Stat Lab 01/18/24 11:39 Completed HIV (1&2) Antibody Rapid Stat Lab 01/18/24 11:39 Received Hep C Ab with Reflex to RNA Stat Lab 01/18/24 11:39 Received Lipid Panel AMLAB Lab 01/19/24 06:00 Ordered Liver Panel AMLAB Lab 01/19/24 06:00 Ordered Troponin I Stat Lab 01/18/24 11:39 Completed CA echo doppler complete Stat Y 01/18/24 14:36 Completed ECG Request NEEDED Y 01/18/24 14:30 Ordered MDM Narrative Medical Decision Narrative: In summary patient is a 63-year-old female who presents to the emergency department for evaluation of chest pain. Patient is initially normotensive at 136/84 pulse 81 respiratory rate 20 satting at 91% on room air currently upon arrival, afebrile. Physical exam is remarkable for nonreproducible chest pain on examination or palpation but patient is currently having pain at a 5 out of 10. Breath sounds are clear and equal bilaterally to the bases.. Differential diagnosis includes ACS versus infection versus pneumonia etc. Initial workup will be conducted with twelve-lead EKG hematologic labs plain film chest x-ray.. Initial interventions were considered. Initial workup reviewed by me shows patient has a troponin of 16.5 a creatinine of 1.2 GFR 45 and the remainder of her hematologic labs are nonactionable. My informal interpretation of her plain film chest x-ray shows chronic disease but no acute infiltrates. There is a implantable AICD present.. Given that patient is still having chest pain I had interactive discussion with Dr. Weiss of cardiology about patient management and she will be taken directly to the [facility] for intervention. <Keith Philippe MD - Last Filed: 01/18/24 16:59> Vital Signs Vital Signs: 01/18/24 11:33 01/18/24 11:53 01/18/24 13:07 Temperature 98.2 F Temperature Source Oral Pulse Rate 81 88 Pulse Rate [Left Radial] 81 Respiratory Rate 20 20 Blood Pressure 140/88 Blood Pressure [Right Arm] 136/84 Blood Pressure Mean [Right Arm] 101 02 Sat by Pulse Oximetry 91 L Oxygen Delivery Method Room Air Oxygen Flow Rate (LPM) 94 Lab Data Labs: Lab Results 01/18/24 11:39: WBC 9.1, RBC 5.06, Hgb 15.9, Hct 47.2 H, MCV 93.4, MCH 31.5 H, MCHC 33.8, RDW 14.1, Plt Count 216, MPV 8.6, Neut % (Auto) 69.2, Lymph % (Auto) 21.4, [place] % (Auto) 7.9, Eos % (Auto) 0.7, Baso % (Auto) 0.9, Neut # (Auto) 6.3, Lymph # (Auto) 1.9, [place] # (Auto) 0.7, Eos # (Auto) 0.1, Baso # (Auto) 0.1, Sodium 137, Potassium 4.3, Chloride 110 H, Carbon Dioxide 23, Anion Gap 8.3, BUN 16, Creatinine 1.20 H, Estimated Creat Clear 52, Estimated GFR 45 L, Est GFR ( Amer) 55 L, Glucose 137 H, Calcium 9.1, Total Bilirubin 0.7, AST 87 H, ALT 21, Alkaline Phosphatase 115, Troponin I 16.50 H, Total Protein 7.0, Albumin 4.0, Globulin 3.0, Albumin/Globulin Ratio 1.3 Response Orders (Tests/Meds): ED MEDICATIONS Generic Name Dose Route Start Last Admin Trade Name Freq PRN Reason Stop Dose Admin Aspirin 81 mg 01/19/24 09:00 Aspirin Ec 81mg Tablet PO 02/18/24 08:59 DAILY [facility] Carvedilol 3.125 mg 01/18/24 21:00 Carvedilol 3.125mg Tablet PO 02/17/24 20:59 BID [facility] Clopidogrel Bisulfate 75 mg 01/19/24 09:00 Clopidogrel 75mg Tab PO 02/18/24 08:59 DAILY [facility] Fentanyl Citrate 50 mcg 01/18/24 12:46 01/18/24 14:46 Fentanyl 100mcg/2ml Vial IV 01/19/24 00:46 150 mcg Q3MINP PRN Administration Sedation Fentanyl Citrate 25 mcg 01/18/24 12:46 Fentanyl 100mcg/2ml Vial IV 01/19/24 00:46 Q3MINP PRN Sedation Flumazenil 0.2 mg 01/18/24 12:46 Flumazenil 0.1mg/Ml 5ml Vial IV 01/19/24 00:46 NEEDED PRN Sedation Sodium Chloride 1,000 mls @ 25 mls/hr 01/18/24 13:00 01/18/24 13:34 Sod Chloride 0.9% 500ml Bag IV 01/19/24 12:46 25 mls/hr .Q25H YENIFER Administration Midazolam HCl 1 mg 01/18/24 12:46 Midazolam 2mg/2ml Vial IV 01/19/24 00:46 Q3MINP PRN Sedation Midazolam HCl 1 mg 01/18/24 12:46 01/18/24 14:46 Midazolam Hcl 1mg/Ml 5ml Vial IV 01/19/24 00:46 8 mg Q3MINP PRN Administration Sedation Miscellaneous 1 each 01/18/24 14:28 Consider Pt For Dual Antiplatelet Therapy At Discharge-Stent NOTAPPLIC 02/17/24 14:27 NEEDED PRN Reminder for s/p stent Naloxone HCl 0.4 mg 01/18/24 12:46 Naloxone 0.4mg/Ml Vial IV 01/19/24 00:46 Q5MINP PRN Decreased Respirations Nitroglycerin 0.4 mg 01/18/24 14:28 Nitroglycerin 0.4mg Sl Tablet SL 02/17/24 14:27 Q5MINP PRN Chest Pain Ranolazine 500 mg 01/18/24 21:00 Ranolazine 500mg Er Tablet PO 02/17/24 20:59 BID YENIFER Sacubitril/Valsartan 1 each 01/18/24 21:00 Sacubitril/Valsartan 24-26mg Tablet PO 02/17/24 20:59 BID YENIFER Discontinued Medications Generic Name Dose Route Start Last Admin Trade Name Freq PRN Reason Stop Dose Admin Aspirin 325 mg 01/18/24 12:31 01/18/24 12:37 Aspirin 325mg Tablet PO 01/18/24 12:32 325 mg ONCE ONE Administration Clopidogrel Bisulfate 75 mg 01/18/24 14:47 01/18/24 15:03 Clopidogrel 75mg Tab PO 01/18/24 14:48 75 mg ONCE ONE Administration Diphenhydramine HCl 50 mg 01/18/24 12:46 01/18/24 13:34 Diphenhydramine 50mg/Ml Vial IV 01/18/24 12:47 50 mg ONCE ONE Administration Heparin Sodium (Porcine) 10,000 unit 01/18/24 12:46 01/18/24 14:49 Heparin 1,000 Units/Ml 10ml Vial ([facility]) IV 01/18/24 16:46 2,000 unit NEEDED PRN Administration [facility]ist Heparin Sodium/Sodium Chloride 3,000 unit 01/18/24 12:46 01/18/24 13:34 Heparin 1,000 Units/500ml Ns ([facility]) IV 01/18/24 12:47 3,000 unit ONCE ONE Administration Hydralazine HCl 20 mg 01/18/24 12:46 Hydralazine 20mg/Ml Vial IV 01/18/24 16:46 ONCE PRN sbp>160 Adenosine 180 mg/ Sodium 90 mls @ 367.411 mls/hr 01/18/24 12:46 Chloride IV 01/18/24 16:46 ONCE PRN fractional flow reserve 180 MCG/KG/MIN Adenosine 90 mg/ Sodium 90 mls @ 734.821 mls/hr 01/18/24 12:46 Chloride IV 01/18/24 16:46 ONCE PRN fractional flow reserve 180 MCG/KG/MIN Iopamidol 160 ml 01/18/24 15:41 01/18/24 15:42 Iopamidol-370 (76%);100ml Bottle IV 01/18/24 15:42 160 ml ONCE ONE Administration Labetalol HCl 20 mg 01/18/24 12:46 Labetalol 20mg/4ml Syringe IV 01/18/24 16:46 ONCE PRN sbp>160 Lidocaine HCl 20 ml 01/18/24 12:46 01/18/24 13:33 Lidocaine 1% 10ml Mdv IJ 01/18/24 12:47 10 ml ONCE ONE Administration Lidocaine HCl 20 ml 01/18/24 12:46 01/18/24 13:34 Lidocaine 1% 5ml Pf Vial IJ 01/18/24 12:47 Not Given ONCE ONE Nitroglycerin 800 mcg 01/18/24 12:46 01/18/24 13:35 Nitroglycerin 800mcg/8ml Syr ([facility]) IA 01/18/24 16:46 800 mcg NEEDED PRN Administration Emergency Box [facility] Support Specialist Protamine Sulfate 50 mg 01/18/24 12:46 Protamine Sulfate 50mg/5ml Vial ([facility]) IV 01/18/24 16:46 ONCE PRN act>200 Verapamil HCl 2.5 mg 01/18/24 12:46 01/18/24 13:34 Verapamil 2.5mg/Ml 2ml Vial IV 01/18/24 12:47 2.5 mg ONCE ONE Administration ORDERS Category Date Time Status XR chest 2V Stat Exams 01/18/24 11:54 Completed Basic Metabolic Panel AMLAB Lab 01/19/24 06:00 Ordered Complete Blood Count Auto Diff AMLAB Lab 01/19/24 06:00 Ordered Complete Blood Count Auto Diff Stat Lab 01/18/24 11:39 Completed Comprehensive Metabolic Panel Stat Lab 01/18/24 11:39 Completed HIV (1&2) Antibody Rapid Stat Lab 01/18/24 11:39 Received Hep C Ab with Reflex to RNA Stat Lab 01/18/24 11:39 Received Lipid Panel AMLAB Lab 01/19/24 06:00 Ordered Liver Panel AMLAB Lab 01/19/24 06:00 Ordered Troponin I Stat Lab 01/18/24 11:39 Completed CA echo doppler complete Stat Y 01/18/24 14:36 Completed ECG Request NEEDED Y 01/18/24 14:30 Ordered MDM Narrative Medical Decision Narrative: In summary patient is a 63-year-old female who presents to the emergency department for evaluation of chest pain. Patient is initially normotensive at 136/84 pulse 81 respiratory rate 20 satting at 91% on room air currently upon arrival, afebrile. Physical exam is remarkable for nonreproducible chest pain on examination or palpation but patient is currently having pain at a 5 out of 10. Breath sounds are clear and equal bilaterally to the bases.. Differential diagnosis includes ACS versus infection versus pneumonia etc. Initial workup will be conducted with twelve-lead EKG hematologic labs plain film chest x-ray.. Initial interventions were considered. Initial workup reviewed by me shows patient has a troponin of 16.5 a creatinine of 1.2 GFR 45 and the remainder of her hematologic labs are nonactionable. My informal interpretation of her plain film chest x-ray shows chronic disease but no acute infiltrates. There is a implantable AICD present.. Given that patient is still having chest pain I had interactive discussion with Dr. Weiss of cardiology about patient management and she will be taken directly to the [facility] for intervention. I was consulted by the ARASH, and we discussed the complexity of the problems being addressed.I approved the treatment and management plan for this patient?s care in the Emergency Department, thus performing a substantive portion of the medical decision making.Signed, Keith Philippe MD
[2024-01-18] MEDS: ASPIRIN 325MG TABLET 325 MG PO (12:37)
--- NOTE | 2024-01-18 13:04 | PC.NURSE ---
pt placed in gown,clipped and transferred to laborer laboratory
[2024-01-18] MEDS: HEPARIN 1,000 UNITS/ML 10ML VIAL (CATH LAB) 10000 UNIT IV ×3 (13:33→14:49)
[2024-01-18] MEDS: LIDOCAINE 1% 10ML MDV 20 ML IJ (13:33)
[2024-01-18] MEDS: VERAPAMIL 2.5MG/ML 2ML VIAL 2.5 MG IV (13:34)
[2024-01-18] MEDS: HEPARIN 1,000 UNITS/500ML NS (CATH LAB) 3000 UNIT IV (13:34)
[2024-01-18] MEDS: 0.9 % SODIUM CHLORIDE 500 ML 25 ML IV (13:34)
[2024-01-18] MEDS: diphenhydrAMINE 50MG/ML VIAL 50 MG IV (13:34)
[2024-01-18] MEDS: NITROGLYCERIN 800MCG/8ML SYR (CATH LAB) 800 MCG IA (13:35)
--- NOTE | 2024-01-18 14:23 | EXP.CARD.CON ---
History of Present Illness History of Present Illness Consult date: 01/18/24 Requesting physician: Tj Saab Consult reason: chest pain Chief complaint: chest pain History of present illness: This is a 63-year-old female presented to the emergency department with complaints of chest pain. She states she has been having substernal chest pain that radiates to left-sided chest pain then radiates into the left arm and into her back. She states that this started around 2:30 AM. She took 3 nitroglycerin without any relief. The patient did not seek medical care initially. She states the pain was a 10 out of 10 in intensity when it first started. After the 3 nitroglycerin it reduced to a 5 out of 10 in intensity. She does have a past medical history of coronary artery disease with previous stenting. She has a history of HFrEF status post AICD placement and COPD. She denies any fever, chills, nausea, vomiting, diarrhea, PND orthopnea. Her chest pain was associated with shortness of breath. She denies any lower extremity edema. [facility] Disclaimer: The information contained in this section may have been updated after the patient was seen, as this information can be updated by other users. Medical History (Updated 01/18/24 @ 14:30 by Judi Cook APRN) Anal fistula Recent heart attack Hypertensive emergency Chronic kidney disease History of common carotid artery stent placement Carotid stenosis Tobacco abuse Insomnia HTN (hypertension), benign Hyperlipidemia GERD (gastroesophageal reflux disease) Diabetes mellitus Depression Low back pain Diverticulosis PVD (peripheral vascular disease) COPD (chronic obstructive pulmonary disease) CVA (cerebral vascular accident) CKD (chronic kidney disease) CAD (coronary artery disease) Arthritis Anxiety Surgical History S/P laparoscopic-assisted sigmoidectomy History of bladder surgery H/O carotid endarterectomy History of implantable cardioverter-defibrillator (ICD) placement Hx of cardiac cath H/O total hysterectomy H/O laparoscopy History of appendectomy H/O colonoscopy Family History Father Coronary artery disease Cancer colon Heart attack Mother Coronary artery disease Heart attack Hypertension Stroke Brother Coronary artery disease Heart attack Diabetes Sister Coronary artery disease Diabetes Heart attack Hyperlipidemia Social History Smoking Status: Current every day smoker tobacco type: cigarettes packs per day: 1 years smoked: 40 quit status: considering quitting alcohol intake: never substance use type: denies use current occupational status: disabled Travel in the last 8 weeks: None marital status: Review of Systems Review of Systems Review of systems:: pertinent systems reviewed and negative unless documented below Constitutional Constitutional: Reports system reviewed and no additional complaints, except as documented and Reports lethargy Eyes Eyes: Reports system reviewed and no additional complaints, except as documented ENT Ears, Nose, Mouth, and Throat: Reports system reviewed and no additional complaints, except as documented *Cardiovascular Cardiovascular: Reports system reviewed and no additional complaints, except as documented, Reports chest pain, Reports chest pain at rest, Reports chest pain with activity, Reports dyspnea, Reports dyspnea on exertion and Reports radiating jaw, neck or arm pain *Respiratory Respiratory: Reports system reviewed and no additional complaints, except as documented, Reports dyspnea and Reports dyspnea on exertion *Gastrointestinal Gastrointestinal: Reports system reviewed and no additional complaints, except as documented *Genitourinary Genitourinary: Reports system reviewed and no additional complaints, except as documented *Musculoskeletal Musculoskeletal: Reports system reviewed and no additional complaints, except as documented Integumentary/Breasts Skin/Breast: Reports system reviewed and no additional complaints, except as documented *Neurologic Neurologic: Reports system reviewed and no additional complaints, except as documented Psychiatric Psychiatric: Reports system reviewed and no additional complaints, except as documented Endocrine Endocrine: Reports system reviewed and no additional complaints, except as documented Hematologic/Lymphatic Hematologic/Lymphatic: Reports system reviewed and no additional complaints, except as documented Allergic/Immunologic Allergic/Immunologic: Reports system reviewed and no additional complaints, except as documented Exam Data for Last 24 hours Vital signs and Labs for Last 24 Hours: Temp Pulse Resp BP Pulse Ox O2 Del Method O2 Flow Rate 98.2 F 88 20 140/88 91 L Room Air 94 01/18/24 13:07 01/18/24 13:07 01/18/24 13:07 01/18/24 13:07 01/18/24 11:33 01/18/24 11:33 01/18/24 13:07 Laboratory Results - last 24 hr 01/18/24 11:39: WBC 9.1, RBC 5.06, Hgb 15.9, Hct 47.2 H, MCV 93.4, MCH 31.5 H, MCHC 33.8, RDW 14.1, Plt Count 216, MPV 8.6, Neut % (Auto) 69.2, Lymph % (Auto) 21.4, [place] % (Auto) 7.9, Eos % (Auto) 0.7, Baso % (Auto) 0.9, Neut # (Auto) 6.3, Lymph # (Auto) 1.9, [place] # (Auto) 0.7, Eos # (Auto) 0.1, Baso # (Auto) 0.1, Sodium 137, Potassium 4.3, Chloride 110 H, Carbon Dioxide 23, Anion Gap 8.3, BUN 16, Creatinine 1.20 H, Estimated Creat Clear 52, Estimated GFR 45 L, Est GFR ( Amer) 55 L, Glucose 137 H, Calcium 9.1, Total Bilirubin 0.7, AST 87 H, ALT 21, Alkaline Phosphatase 115, Troponin I 16.50 H, Total Protein 7.0, Albumin 4.0, Globulin 3.0, Albumin/Globulin Ratio 1.3 I & O for Last 24 hours: Intake & Output 01/15/24 01/16/24 01/17/24 01/18/24 23:59 23:59 23:59 23:59 Weight 150 lb Constitutional Constitutional: no acute distress and average body habitus *Routine HEENT Exam Head: Present normocephalic and atraumatic ENT: Present mucous membranes moist *Routine Neck Exam Neck: Present supple, full ROM and normal carotid upstroke; Absent JVD, carotid bruit or lymphadenopathy *Routine Respiratory Exam Respiratory: Present CTA bilaterally, normal respiratory effort, able to speak in complete sentences and symmetric chest movement *Routine Cardiovascular Exam Cardiovascular: Present RRR, Normal S1 and Normal S2; Absent murmur or gallop *Routine Abdominal Exam Abdominal: Present soft and normoactive bowel sounds; Absent tenderness, distended or organomegaly *Routine Extremities Exam Extremities: Present full ROM, pulses intact and normal capillary refill; Absent cyanosis, clubbing or edema *Routine Skin Exam Skin: Present intact and warm; Absent erythema *Routine Neurological Exam Neurological: Present alert, oriented X3 and CN II-XII intact; Absent sensory deficit or motor deficit Routine Psychiatric Exam Psychiatric: Present normal affect Meds Home Medications and Allergies Home Medications ?Medication ?Instructions ?Recorded ?Confirmed ?Type albuterol sulfate 90 mcg/actuation 2 inh inhalation Q4HP PRN 04/27/22 04/13/23 History aerosol inhaler Shortness Of Breath aspirin 325 mg tablet 325 mg PO DAILY Heart disease 04/27/22 04/13/23 History clopidogrel 75 mg tablet 75 mg PO DAILY platelet inhibitor 04/27/22 04/13/23 History fluticasone furoate 200 1 inh inhalation DAILY COPD 04/27/22 04/13/23 History mcg-vilanterol 25 mcg/dose inhalation powder (Breo Ellipta) gabapentin 300 mg capsule 300 mg PO DIRECTED Pain 04/27/22 04/13/23 History metoprolol tartrate 50 mg tablet 50 mg PO BID High blood pressure 04/27/22 04/13/23 History nitroglycerin 0.4 mg sublingual 0.4 mg sublingual Q5-15M PRN Chest 04/27/22 04/13/23 History tablet Pain omeprazole 40 mg capsule,delayed 40 mg PO DAILY Acid reflux 04/27/22 04/13/23 History release rosuvastatin 20 mg tablet 20 mg PO HS Cholesterol 04/27/22 04/13/23 History ipratropium 0.5 mg-albuterol 3 mg 3 ml inhalation QID PRN shortness 05/26/22 04/13/23 Rx (2.5 mg base)/3 mL nebulization of breath or wheezing #180 mL soln tramadol 50 mg tablet 50 - 100 mg PO Q6HP PRN Pain 05/26/22 04/13/23 History amlodipine 5 mg tablet 5 mg PO DAILY #90 tabs 06/21/22 04/13/23 Rx ranolazine 500 mg tablet,extended 500 mg PO BID #60 tabs 07/06/22 04/13/23 Rx release,12 hr furosemide 20 mg tablet (Lasix) 20 mg PO DAILY 09/15/22 04/13/23 History isosorbide mononitrate 60 mg 60 mg PO DAILY 02/15/23 04/13/23 History tablet,extended release 24 hr bupropion HCl 150 mg 24 hr tablet, See Rx Instructions .Route 05/24/23 Rx extended release .COMPLEX #90 tabs dicyclomine 10 mg capsule See Rx Instructions .Route 07/12/23 Rx .COMPLEX #180 caps duloxetine 30 mg capsule,delayed See Rx Instructions .Route 09/06/23 Rx release .COMPLEX #180 caps trazodone 50 mg tablet 50 mg PO HS sleep #90 tabs 10/02/23 Rx New Prescriptions to Start Prescriptions: Allergies Allergy/AdvReac Type Severity Reaction Status Date / Time Sulfa (Sulfonamide Allergy Intermediate Hives Verified 04/13/23 13:21 Antibiotics) hydrocodone (From Vicodin) AdvReac Vomiting Verified 04/13/23 13:21 Assessment and Plan *Assessment and plan (1) Acute non-ST elevation myocardial infarction (NSTEMI): Status: Acute Category: Medical Code(s): I21.4 - Non-ST elevation (NSTEMI) myocardial infarction (2) AICD (automatic cardioverter/defibrillator) present: Status: Acute Category: Surgical Code(s): Z95.810 - Presence of automatic (implantable) cardiac defibrillator (3) CAD (coronary artery disease): Status: Acute Qualifiers: Associated angina: with other forms of angina Coronary Disease-Associated Artery/Lesion type: [place] artery [place] vs. transplanted heart: [place] heart Qualified Code(s): I25.118 - Atherosclerotic heart disease of [place] coronary artery with other forms of angina pectoris Category: Medical Code(s): I25.10 - Atherosclerotic heart disease of [place] coronary artery without angina pectoris (4) COPD (chronic obstructive pulmonary disease): Status: Acute Qualifiers: COPD type: unspecified COPD Qualified Code(s): J44.9 - Chronic obstructive pulmonary disease, unspecified Category: Medical Code(s): J44.9 - Chronic obstructive pulmonary disease, unspecified (5) Diabetes mellitus: Status: Acute Qualifiers: Diabetes mellitus complication status: without complication Diabetes mellitus oil heaterman insulin use: without group home use Diabetes mellitus type: type 2 Qualified Code(s): E11.9 - Type 2 diabetes mellitus without complications Category: Medical Code(s): E11.9 - Type 2 diabetes mellitus without complications (6) Hyperlipidemia: Status: Acute Qualifiers: Hyperlipidemia type: mixed hyperlipidemia Qualified Code(s): E78.2 - Mixed hyperlipidemia Category: Medical Code(s): E78.5 - Hyperlipidemia, unspecified (7) HTN (hypertension), benign: Status: Acute Category: Medical Code(s): I10 - Essential (primary) hypertension (8) Tobacco abuse: Status: Acute Category: Medical Code(s): Z72.0 - Tobacco use (9) Heart failure with reduced ejection fraction: Status: Acute Category: Medical Code(s): I50.20 - Unspecified systolic (congestive) heart failure (10) CKD (chronic kidney disease): Status: Acute Qualifiers: Chronic kidney disease stage: unspecified stage Qualified Code(s): N18.9 - Chronic kidney disease, unspecified Category: Medical Code(s): N18.9 - Chronic kidney disease, unspecified Plan Plan: 1. The patient presented to the emergency department with chest pain. She is found to have a non-STEMI. Will take the patient directly to the Semiconductor Processing Technician to undergo left cardiac catheterization to evaluate coronary arteries. 2. The patient be n.p.o. in preparation for left cardiac catheterization. 3. Continue aspirin and Plavix for dual antiplatelet therapy. 4. Her blood pressure is acceptable at this time. 5. Her LDL goal is less than 55. Continue Crestor. Will get a lipid panel in the morning. 6. Will obtain an echocardiogram to evaluate her LV function due to her non-STEMI and history of HFrEF. 7. Consider beta-veronica post left cardiac catheterization. 8. Continue isosorbide and Ranexa for antianginals. 9. The patient has a history of HFrEF. Depending on her ejection fraction the amlodipine may need to be stopped. 10. Further recommendations were made pending the patient's response to treatment and the results of her left cardiac catheterization and echocardiogram today. Thank you for the opportunity to help participate in the care of this patient. All recommendations and orders are per Dr. Manzano.
--- NOTE | 2024-01-18 14:36 | CA_ITS ---
APPROVED REPORT EXAM: Comprehensive 2D, Doppler, and color-flow Echocardiogram Business Continuity Management Director: Alma Uriarte RVT Ht: 5 ft 3 in Wt: 150lbs BSA: 1.71 BP: 140/88 mmHg Indications: NSTEMI,CAD,AICD,COPD,CP,DM,SMOKER,HTN,HLD,EF OF 30-35% PER CATH FROM TODAY 2D Dimensions IVSd 1.78 cm F: 0.6-1.0 LVEF (Visual) 37.20 % PWd 0.93 cm F: 0.6 - 1.0 LA Volume 45.80 mL LVDd 3.34 cm F: 3.9 - 5.3 LA Volume Index 26.78 mL/m2 (M/F) 16-34 LVDs 2.76 cm F: 2.2 - 3.5 M-Mode Dimensions LA Diam 3.28 cm (1.9-4.0) LV Diastology E Decel Time 153 (160-240 msec) E/A Ratio 0.6 Aortic Valve GLO Index 1.29 cm2/m2 AoV Peak Adrián. 166.0 (50-130 cm/s) AO Peak GR. 11.00 mmHg AO Mean GR. 5.90 (<5 mmHg) AO VTI 37.8 (18-25 cm) GLO (VTI) 2.25 (2.5-4.5 cm2) Mitral Valve MV E Max Adrián. 50.0 (40-130 cm/s) MV A Velocity 84.0 (40-130 cm/s) E/A Ratio 0.60 MV PHT 45.0 ms Pulmonary Valve PV Peak Velocity 72.0 (50-150 cm/s) Tricuspid Valve TR P. Velocity 174.00 cm/s RAP Estimate 10.00 mmHg RVSP 22.10 mmHg Left Ventricle The left ventricle is normal size. The left ventricular systolic function is mildly to moderately reduced. There is increased overall thickness. There is mild to moderate global hypokinesis. There is severe hypokinesis of the septal and anteroseptal LV wall, as well as the inferolateral LV wall. Grade 1 diastolic dysfunction is present. LVEF is 40%. Right Ventricle The right ventricle is normal size. The right ventricular systolic function is normal. Atria The left atrium size is normal. The right atrium size is normal. There is no Doppler evidence of interatrial shunt. Aortic Valve The aortic valve is mildly thickened. There is no aortic valvular stenosis. No aortic regurgitation is present. Mitral Valve The mitral valve is normal in structure. No evidence of mitral valve stenosis. Trace mitral valve regurgitation noted. Tricuspid Valve Tricuspid valve is grossly normal in structure and function. Trace tricuspid regurgitation. There is insufficient TR jet to estimate RVSP. Pulmonic Valve The pulmonary valve is normal in structure. Trace pulmonic regurgitation. Great Vessels The aortic root is normal in size. The ascending aorta is not well-visualized. Pericardium Trivial, anterior pericardial effusion is present. No echo indications of tamponade. There is a hyperechoic liver echodensity present, measuring approximately 3.0 cm x 2.0 cm in its largest dimensions. Other Information Study Quality: Fair Conclusion Mild to moderate reduction in LV systolic function (LVEF 40%). Severe hypokinesis of the septal and anteroseptal LV wall, as well as the inferolateral LV wall. No significant valvular stenosis or regurgitation. Trivial, anterior pericardial effusion is present. No echo indications of tamponade. hyperechoic liver echodensity present, measuring approximately 3.0 cm x 2.0 cm in its largest dimensions. Correlation with recent or new or recent CT abdomen or right upper quadrant ultrasound is recommended. Electronically signed by : Elina Manzano MD 01/18/2024 23:33:27
[2024-01-18] MEDS: FENTANYL 100MCG/2ML VIAL 50 MCG IV (14:46)
[2024-01-18] MEDS: MIDAZOLAM HCL 1MG/ML 5ML VIAL 1 MG IV (14:46)
[2024-01-18] MEDS: CLOPIDOGREL 75MG TAB 75 MG PO (15:03)
[2024-01-18] MEDS: IOPAMIDOL-370 (76%);100ML BOTTLE 160 ML IV (15:42)
--- NOTE | 2024-01-18 15:43 | HMH.PHAINT1 ---
Pharmacy Intervention Comments: MEDICATION RECONCILIATION COMPLETED ON PATIENT USING EXTERNAL FILL HISTORY FROM PHARMACY. -SHANTA FISHER, RAMAND
[2024-01-18] MEDS: ACETAMINOPHEN 325MG TAB 650 MG PO (17:05)
--- NOTE | 2024-01-18 21:00 | P.HP_ITS ---
History of Present Illness *Admission Date: 01/18/24 *Reason for visit:: NSTEMI *History of present illness: Isidra Richards is a 63 year old female with a medical history significant for NSTEMI/CAD s/p stents, HFrEF 40%, chronic tobacco smoker, hypertension who presented with chest pain. Initial troponin was 16.5 and laboratory technician was activated. She received HATTIE x3 and admitted for close monitoring on cardiac telemetry. [facility] Disclaimer: The information contained in this section may have been updated after the patient was seen, as this information can be updated by other users. Medical History Anal fistula Recent heart attack Hypertensive emergency Chronic kidney disease History of common carotid artery stent placement Carotid stenosis Tobacco abuse Insomnia HTN (hypertension), benign Hyperlipidemia GERD (gastroesophageal reflux disease) Diabetes mellitus Depression Low back pain Diverticulosis PVD (peripheral vascular disease) COPD (chronic obstructive pulmonary disease) CVA (cerebral vascular accident) CKD (chronic kidney disease) CAD (coronary artery disease) Arthritis Anxiety Surgical History S/P laparoscopic-assisted sigmoidectomy History of bladder surgery H/O carotid endarterectomy History of implantable cardioverter-defibrillator (ICD) placement Hx of cardiac cath H/O total hysterectomy H/O laparoscopy History of appendectomy H/O colonoscopy Family History Father Coronary artery disease Cancer colon Heart attack Mother Coronary artery disease Heart attack Hypertension Stroke Brother Coronary artery disease Heart attack Diabetes Sister Coronary artery disease Diabetes Heart attack Hyperlipidemia Social History (Updated 01/18/24 @ 15:37 by Antionette Dillard RN) Smoking Status: Current every day smoker tobacco type: cigarettes packs per day: 1 years smoked: 40 quit status: considering quitting alcohol intake: never substance use type: denies use current occupational status: disabled Travel in the last 8 weeks: None marital status: Have you lived/traveled outside [place] in past 30 days?: No Contact w/someone who lives/traveled outside [place] past 30 days?: No Exposure to someone with infectious disease in past 14 days?: No Do you have a fever (greater than 100.4 F or 38 C)?: No Have you tested positive for COVID-19: No Exposed to someone with COVID-19 in past 14 days?: No Do you have a sore throat?: No Do you have a cough?: No Do you have any weakness?: No Are you experiencing any nausea/vomitting?: No Do you have any diarrhea?: No Are you experiencing any unusual bleeding?: No Do you have any muscle aches/pain?: No Do you have any abdominal pain?: No Are you experiencing loss of taste or smell?: No Other Medical History Have you received the Flu Vaccine for this season: No Have you received the Pneumonia Vaccine: Yes Review of Systems *Neurologic Neurologic: Reports system reviewed and no additional complaints, except as documented Meds Home Medications and Allergies Home Medications ?Medication ?Instructions ?Recorded ?Confirmed ?Type clopidogrel 75 mg tablet 75 mg PO DAILY 04/27/22 01/18/24 History gabapentin 300 mg capsule 600 mg PO 1300 04/27/22 01/18/24 History metoprolol tartrate 50 mg tablet 50 mg PO BID 04/27/22 01/18/24 History furosemide 20 mg tablet (Lasix) 20 mg PO DAILY 09/15/22 01/18/24 History isosorbide mononitrate 60 mg 60 mg PO DAILY 02/15/23 01/18/24 History tablet,extended release 24 hr bupropion HCl 150 mg 24 hr tablet, 150 mg PO DAILY 01/18/24 01/18/24 History extended release dicyclomine 10 mg capsule 10 mg PO BIDP PRN Abdominal Pain 01/18/24 01/18/24 History duloxetine 30 mg capsule,delayed 60 mg PO DAILY 01/18/24 01/18/24 History release gabapentin 300 mg capsule 300 mg PO DAILY 01/18/24 01/18/24 History gabapentin 300 mg capsule 900 mg PO HS 01/18/24 01/18/24 History nifedipine 30 mg tablet,extended 30 mg PO DAILY 01/18/24 01/18/24 History release 24 hr oxycodone 5 mg tablet 5 mg PO BIDP PRN Moderate Pain 01/18/24 01/18/24 History (Scale Score 5-6) tramadol 50 mg tablet 50 mg PO BIDP PRN Mild Pain (Scale 01/18/24 01/18/24 History Score 1-4) trazodone 50 mg tablet 50 mg PO HS 01/18/24 01/18/24 History New Prescriptions to Start Prescriptions: Allergies Allergy/AdvReac Type Severity Reaction Status Date / Time Sulfa (Sulfonamide Allergy Intermediate Hives Verified 04/13/23 13:21 Antibiotics) hydrocodone (From Vicodin) AdvReac Vomiting Verified 04/13/23 13:21 Exam Data for Last 24 hours Vital signs and Labs for Last 24 Hours: Temp Pulse Resp BP Pulse Ox O2 Del Method O2 Flow Rate 97.6 F 72 16 100/66 L 90 L Room Air 94 01/18/24 15:20 01/18/24 18:05 01/18/24 18:05 01/18/24 18:05 01/18/24 18:05 01/18/24 18:59 01/18/24 13:07 Laboratory Results - last 24 hr 01/18/24 11:39: WBC 9.1, RBC 5.06, Hgb 15.9, Hct 47.2 H, MCV 93.4, MCH 31.5 H, MCHC 33.8, RDW 14.1, Plt Count 216, MPV 8.6, Neut % (Auto) 69.2, Lymph % (Auto) 21.4, [place] % (Auto) 7.9, Eos % (Auto) 0.7, Baso % (Auto) 0.9, Neut # (Auto) 6.3, Lymph # (Auto) 1.9, [place] # (Auto) 0.7, Eos # (Auto) 0.1, Baso # (Auto) 0.1, Sodium 137, Potassium 4.3, Chloride 110 H, Carbon Dioxide 23, Anion Gap 8.3, BUN 16, Creatinine 1.20 H, Estimated Creat Clear 52, Estimated GFR 45 L, Est GFR ( Amer) 55 L, Glucose 137 H, Calcium 9.1, Total Bilirubin 0.7, AST 87 H, ALT 21, Alkaline Phosphatase 115, Troponin I 16.50 H, Total Protein 7.0, Albumin 4.0, Globulin 3.0, Albumin/Globulin Ratio 1.3 I & O for Last 24 hours: Intake & Output 01/15/24 01/16/24 01/17/24 01/18/24 23:59 23:59 23:59 23:59 Intake Total 240 / 240 Output Total 0 / 0 Balance 240 / 240 Weight 68.039 kg Constitutional Constitutional: no acute distress *Routine HEENT Exam Head: Present normocephalic Eye: Present EOMI and PERRL ENT: Present mucous membranes moist *Routine Neck Exam Neck: Present supple; Absent lymphadenopathy *Routine Respiratory Exam Respiratory: Present CTA bilaterally *Routine Cardiovascular Exam Cardiovascular: Present RRR *Routine Abdominal Exam Abdominal: Present soft and normoactive bowel sounds; Absent tenderness *Routine Rectal Exam Rectal:: deferred *Routine Genitalia Exam Genitalia:: deferred *Routine Extremities Exam Extremities: Absent cyanosis, clubbing or edema *Routine Skin Exam Skin: Present warm; Absent rash *Routine Neurological Exam Neurological: Present alert and oriented X3 Assessment and Plan *Assessment and plan (1) Acute non-ST elevation myocardial infarction (NSTEMI): Status: Acute Category: Medical Code(s): I21.4 - Non-ST elevation (NSTEMI) myocardial infarction Plan Isidra Richards is a 63 year old female with a medical history significant for NSTEMI/CAD s/p stents, HFrEF 40%, chronic tobacco smoker, hypertension who presented with chest pain. Initial troponin was 16.5 and laboratory technician was activated. She received HATTIE x3 and admitted for close monitoring on cardiac telemetry. #NSTEMI #CAD #HFrEF - S/p PCI 01/18/24 with HATTIE x3 in LAD and large first diagonal artery. - Patient has had complex cardiac history with multiple NSTEMIs and stents in the past. Current smoker. - Aspirin 81mg, Plavis 75mg, atorvastatin 40mg. - ECHO reveals LVEF 40% with wall post abnormalities, but post PCI. - Cardiology consulted, pending further recommendations. - Will need aggressive risk factor management inclusion smoker cessation. - Will need GDMT before discharge. #Chronic tobacco smoker - Extensively discussed smoking cessation. Patient is interested in quitting, including nicotine pathches. - Nicotine patches daily, will need rx on discharge. #Hypertension - BP soft at this time post PCI with sedation. - Resume home medications once appropriate for BP. FULL CODE DVT prophylaxis: Lovenox 40mg
--- NOTE | 2024-01-18 21:43 | PC.NURSE ---
Patient's most recent blood pressure (21:20; taken prior to medication administration) was 99/71. Patient is still on post-op vitals until 22:05 this shift. Keegan ALAS was paged at this time to confirm proceeding with administration of carvedilol and Entresto this shift.
[2024-01-18] MEDS: TRAZODONE 50MG TABLET 50 MG PO (21:50)
[2024-01-18] MEDS: SACUBITRIL/VALSARTAN 24-26MG TABLET 1 EACH PO (21:50)
[2024-01-18] MEDS: GABAPENTIN 300MG CAPSULE 900 MG PO (21:50)
[2024-01-18] MEDS: CARVEDILOL 3.125MG TABLET 3.125 MG PO (21:50)
[2024-01-18] MEDS: RANOLAZINE 500MG ER TABLET 500 MG PO (21:50)
--- NOTE | 2024-01-18 22:17 | PC.NURSE ---
Radial band sheath removed at this time. No bleeding or drainage noted. Skin temperature around cath site was even overall. No pain reported. Tegaderm and sterile 4x4 gauze dressing was placed over the right radial cath site.
[2024-01-19] VITALS: BP 75/52; PULSE 70; RESP 14; TEMP 36.9; O2SAT 92
--- NOTE | 2024-01-19 00:17 | PC.NURSE ---
During midnight vital sign assessment, patient's blood pressures were reported to have dropped. They were taken three times and readings are as follows: 68/45 (MAP 56), 76/54 (MAP 62), and 75/52 (MAP 60). Patient remains alert and oriented but does report lightheadedness and dizziness. Keegan ALAS was consulted [id number] at this time regarding the acute change. An order for one 250mL bolus of normal saline given over an hour was obtained. Keegan ALAS also requested for patient's blood pressure to be taken again after administration.
--- NOTE | 2024-01-19 00:20 | EXP.EVENT.NO ---
Noted approximately 2 hours ago the patient had blood pressure 99/71. Patient echo shows ejection fraction 40% today, and patient scheduled to get Entresto/Coreg 3.125 tonight. I gave patient medications, then noted patient had blood pressures 76/54 approximately 90 to 120 minutes later. Will give 250 cc bolus x 1. Will also discontinue Coreg given patient's hypotension issues. Recommend a.m. team consider metoprolol succinate as alternative.
[2024-01-19] MEDS: SODIUM CHLORIDE 0.9% 250ML BAG 250 ML IV (00:27)
--- NOTE | 2024-01-19 01:46 | PC.NURSE ---
Normal saline bolus finished at approximately 01:37. Patient's blood pressure was taken for reevaluation at this time. On the right side, patient's blood pressure reading was 83/54 (MAP 63). On the left side (favored during her stay), patient's blood pressure reading was 87/61 (MAP 71).
[2024-01-19 03:57] VITALS: BP 93/55; PULSE 68; RESP 14; TEMP 36.7; O2SAT 91; BMI 34.7
[2024-01-19 04:00] VITALS: PULSE 60
--- NOTE | 2024-01-19 04:37 | PC.NURSE ---
Patient is alert and oriented x4. Patient was observed to have eyes closed, respirations even and unlabored, and no apparent distress throughout the majority of the night. Patient has appeared very fatigued this shift. Post-angio assessment plus vital signs were completed this shift. Patient's blood pressures have been quite hypotensive; interventions were implemented accordingly to stabilize her low blood pressures this shift (see prior note, 00:17; see MD event note). Other vital signs have remained stable. Patient has not had any complaints of chest pain or generalized pain thus far. Auscultation of her lungs, heart, and bowels were within normal findings. A skin lesion by the right nostril was noted. Patient's right radial cath site was dressed this shift (see prior note; 22:17). Scheduled medications were administered as appropriately per APR. At this time, the patient is resting in bed on her left side. She does not have any further complaints. Call light within reach.
[2024-01-19 06:52] LABS: Chloride 109 mmol/L (98-107)
[2024-01-19 06:53] LABS: Potassium 4.3 mmoL/L (3.5-5.1); Sodium 138 mmol/L (136-145)
[2024-01-19 06:55] LABS: Basophils # 0.1 K/mm3 (0-0.2); Basophils % 0.5 % (0.1-2.0); Blood Urea Nitrogen 22 mg/dl (7-17); Creatinine Clearance Estimated 62 mL/min (50-200); Eosinophils # 0.1 K/mm3 (0.0-0.4); Eosinophils % 1.1 % (0.1-12.0); Estimated Glomerular Filt Rate 41 ml/min (>60); GFR (African American) 50 ML/MIN (>60); Hematocrit 48.2 % (37.0-47.0); Hemoglobin 15.4 g/dL (12.2-16.2); Lymphocytes # 1.6 K/mm3 (0.7-4.5); Lymphocytes % 18.7 % (10-50); Mean Corpuscular HGB Conc 31.9 g/dL (31.8-35.4); Mean Corpuscular Volume 97.1 fl (81-99); Mean Platelet Volume 8.8 fl (7.4-10.4); Monocytes # 0.7 K/mm3 (0.1-1.0); Monocytes % 7.5 % (1.7-9.3); Neutrophils # 6.3 K/mm3 (1.8-7.8); Neutrophils % 72.1 % (37.0-80.0); Platelet Count 147 K/mm3 (142-424); Red Blood Count 4.96 M/mm3 (4.20-5.40); Red Cell Distribution Width 14.3 % (11.5-17.5); White Blood Count 8.7 K/mm3 (4.8-10.8)
[2024-01-19 06:56] LABS: Anion Gap 6.3 mEq/L (5-15); Calcium 8.4 mg/dl (8.4-10.2); Carbon Dioxide 27 mmol/L (22.0-30.0); Glucose 141 mg/dl (74-100)
[2024-01-19 07:27] LABS: CATHL Activated Clotting Time 247 SEC (74-125)
[2024-01-19 07:49] LABS: Albumin Level 3.5 g/dl (3.5-5.0)
[2024-01-19 07:52] LABS: Alanine Aminotransferase 18 U/L (12-78); Alkaline Phosphatase 98 U/L (38-126); Aspartate Amino Transferase 69 U/L (14-36); Bilirubin,Direct 0.4 mg/dl (0.0-0.4); Bilirubin,Indirect 0.1 mg/dL (0.0-0.9); Bilirubin,Total 0.5 mg/dl (0.2-1.3); Bilirubin,Unconjugated 0.1 mg/dL (0.0-1.1); Cholesterol 186 mg/dl (140-200); HDL Cholesterol 37 mg/dl (40-60); Total Protein,Serum 5.9 g/dl (6.3-8.2); Triglycerides 180 mg/dl (30-150); VLDL Cholesterol 36 mg/dL (0-40)
[2024-01-19 08:00] VITALS: BP 184/75; PULSE 70; PULSE 82; RESP 18; TEMP 36.4; O2SAT 92
[2024-01-19 08:03] LABS: Direct LDL Cholesterol 117.99 mg/dL (100-129)
[2024-01-19] MEDS: GABAPENTIN 300MG CAPSULE 300 MG PO (09:20)
[2024-01-19] MEDS: buPROPion HCl SR 150MG TAB 150 MG PO (09:21)
[2024-01-19] MEDS: SACUBITRIL/VALSARTAN 24-26MG TABLET 1 EACH PO (09:21)
[2024-01-19] MEDS: DULOXETINE 30MG CAPSULE.DR 60 MG PO (09:21)
[2024-01-19] MEDS: ENOXAPARIN 40MG/0.4ML SYRINGE 40 MG SUBCUT (09:21)
[2024-01-19] MEDS: CLOPIDOGREL 75MG TAB 75 MG PO (09:21)
[2024-01-19] MEDS: FUROSEMIDE 20MG TABLET 20 MG PO (09:21)
[2024-01-19] MEDS: METOPROLOL SUCCINATE XL 25MG TABLET 12.5 MG PO (09:21)
[2024-01-19] MEDS: RANOLAZINE 500MG ER TABLET 500 MG PO (09:22)
[2024-01-19] MEDS: ASPIRIN EC 81MG TABLET 81 MG PO (09:24)
[2024-01-19 09:39] VITALS: BP 107/50
[2024-01-19] MEDS: EMPAGLIFLOZIN 10MG TABLET 10 MG PO (10:28)
--- NOTE | 2024-01-19 10:56 | P.DS_ITS ---
General Admission date:: 01/18/24 Discharge date: 01/19/24 HPI HPI HPI: Isidra Richards is a 63 year old female with a medical history significant for NSTEMI/CAD s/p stents, HFrEF 40%, chronic tobacco smoker, hypertension who presented with chest pain. Initial troponin was 16.5 and brush clearing laborer was activated. She received HATTIE x3 and admitted for close monitoring on cardiac telemetry. Hospital Course Hospital Course Hospital Course: Isidra Richards is a 63 year old female with a medical history significant for NSTEMI/CAD s/p stents, HFrEF 40%, chronic tobacco smoker, hypertension who presented with chest pain. Initial troponin was 16.5 and brush clearing laborer was activated. She received HATTIE x3 and admitted for close monitoring on cardiac telemetry. Did well overnight. Stable to discharge home on goal-directed therapy. Close follow-up with cardiology. Problems addressed as follows: #NSTEMI #CAD #HFrEF # Hypertension - S/p PCI 01/18/24 with HATTIE x3 in LAD and large first diagonal artery. Patient has had complex cardiac history with multiple NSTEMIs and stents in the past. Continues to smoke. Will continue antiplatelet therapy with aspirin 81 mg daily, Plavis 75mg, atorvastatin 40mg. ECHO reveals LVEF 40% with wall post abnormalities, but post PCI. Cardiology assisted with care. They recommend continuing the following cardiac medications: Jardiance 10 mg daily, Lasix 20 mg daily, metoprolol succinate 12.5 mg p.o. daily, Ranexa 500 mg p.o. twice daily, and Entresto 24/26 mg p.o. twice daily. Chest pain-free on morning of discharge. AICD in place. #Chronic tobacco smoker - Extensively discussed smoking cessation. Patient is interested in quitting, including nicotine pathches. Nicotine patches daily. Exam Data for Last 24 hours Vital signs and Labs for Last 24 Hours: Temp Pulse Resp BP Pulse Ox O2 Del Method O2 Flow Rate 97.6 F 82 18 107/50 L 92 L Room Air 94 01/19/24 08:00 01/19/24 08:00 01/19/24 08:00 01/19/24 09:39 01/19/24 08:00 01/19/24 09:00 01/18/24 13:07 Laboratory Results - last 24 hr 01/18/24 11:39: WBC 9.1, RBC 5.06, Hgb 15.9, Hct 47.2 H, MCV 93.4, MCH 31.5 H, MCHC 33.8, RDW 14.1, Plt Count 216, MPV 8.6, Neut % (Auto) 69.2, Lymph % (Auto) 21.4, [place] % (Auto) 7.9, Eos % (Auto) 0.7, Baso % (Auto) 0.9, Neut # (Auto) 6.3, Lymph # (Auto) 1.9, [place] # (Auto) 0.7, Eos # (Auto) 0.1, Baso # (Auto) 0.1, Sodium 137, Potassium 4.3, Chloride 110 H, Carbon Dioxide 23, Anion Gap 8.3, BUN 16, Creatinine 1.20 H, Estimated Creat Clear 52, Estimated GFR 45 L, Est GFR ( Amer) 55 L, Glucose 137 H, Calcium 9.1, Total Bilirubin 0.7, AST 87 H, ALT 21, Alkaline Phosphatase 115, Troponin I 16.50 H, Total Protein 7.0, Albumin 4.0, Globulin 3.0, Albumin/Globulin Ratio 1.3 01/18/24 15:43: Activated Clotting Time 247 H* 01/19/24 06:25: WBC 8.7, RBC 4.96, Hgb 15.4, Hct 48.2 H, MCV 97.1, MCH 31.0, MCHC 31.9, RDW 14.3, Plt Count 147 D, MPV 8.8, Neut % (Auto) 72.1, Lymph % (Auto) 18.7, [place] % (Auto) 7.5, Eos % (Auto) 1.1, Baso % (Auto) 0.5, Neut # (Auto) 6.3, Lymph # (Auto) 1.6, [place] # (Auto) 0.7, Eos # (Auto) 0.1, Baso # (Auto) 0.1, Sodium 138, Potassium 4.3, Chloride 109 H, Carbon Dioxide 27, Anion Gap 6.3, BUN 22 H D, Creatinine 1.30 H, Estimated Creat Clear 62, Estimated GFR 41 L, Est GFR ( Amer) 50 L, Glucose 141 H, Calcium 8.4, Total Bilirubin 0.5, Direct Bilirubin 0.4, Conjugated Bilirubin 0.0, Indirect Bilirubin 0.1, Unconjugated Bilirubin 0.1, AST 69 H, ALT 18, Alkaline Phosphatase 98, Total Protein 5.9 L, Albumin 3.5 D, Triglycerides 180 H, Cholesterol 186, LDL Cholesterol Direct 117.99, VLDL Cholesterol 36, HDL Cholesterol 37 L, Cholesterol/HDL Ratio 5.0 H I & O for Last 24 hours: Intake & Output 01/16/24 01/17/24 01/18/24 01/19/24 23:59 23:59 23:59 23:59 Intake Total 240 / 512 1087 / 1087 Output Total 0 / 0 0 / 0 Balance 240 / 512 1087 / 1087 Weight 68.039 kg 88.904 kg Constitutional Constitutional: no acute distress, obese and chronically ill appearing *Routine HEENT Exam Head: Present normocephalic and atraumatic ENT: Present mucous membranes moist *Routine Neck Exam Neck: Present supple, full ROM and normal carotid upstroke; Absent JVD, carotid bruit or lymphadenopathy *Routine Respiratory Exam Respiratory: Present CTA bilaterally, normal respiratory effort, able to speak in complete sentences and symmetric chest movement; Absent rhonchi, stridor, wheezes or crackles *Routine Cardiovascular Exam Cardiovascular: Present RRR, Normal S1 and Normal S2; Absent murmur or gallop *Routine Abdominal Exam Abdominal: Present soft and normoactive bowel sounds; Absent tenderness, distended or organomegaly *Routine Rectal Exam Patient deferred: visual exam *Routine Exam Patient deferred: external exam *Routine Extremities Exam Extremities: Present full ROM, pulses intact and normal capillary refill; Absent cyanosis, clubbing or edema *Routine Skin Exam Skin: Present intact and warm; Absent erythema *Routine Neurological Exam Neurological: Present alert, oriented X3, CN II-XII intact and moving all extremities; Absent altered mental status Routine Psychiatric Exam Psychiatric: Present normal affect Results Data Completed and Pending Labs on day of discharge: Labs from last 24 hours 01/19/24 01/18/24 01/18/24 06:25 15:43 11:39 WBC 8.7 9.1 RBC 4.96 5.06 Hgb 15.4 15.9 Hct 48.2 H 47.2 H MCV 97.1 93.4 MCH 31.0 31.5 H MCHC 31.9 33.8 RDW 14.3 14.1 Plt Count 147 D 216 MPV 8.8 8.6 Neut % (Auto) 72.1 69.2 Lymph % (Auto) 18.7 21.4 [place] % (Auto) 7.5 7.9 Eos % (Auto) 1.1 0.7 Baso % (Auto) 0.5 0.9 Neut # (Auto) 6.3 6.3 Lymph # (Auto) 1.6 1.9 [place] # (Auto) 0.7 0.7 Eos # (Auto) 0.1 0.1 Baso # (Auto) 0.1 0.1 Activated Clotting Time 247 H* Sodium 138 137 Potassium 4.3 4.3 Chloride 109 H 110 H Carbon Dioxide 27 23 Anion Gap 6.3 8.3 BUN 22 H D 16 Creatinine 1.30 H 1.20 H Estimated Creat Clear 62 52 Estimated GFR 41 L 45 L Est GFR ( Amer) 50 L 55 L Glucose 141 H 137 H Calcium 8.4 9.1 Total Bilirubin 0.5 0.7 Direct Bilirubin 0.4 Conjugated Bilirubin 0.0 Indirect Bilirubin 0.1 Unconjugated Bilirubin 0.1 AST 69 H 87 H ALT 18 21 Alkaline Phosphatase 98 115 Troponin I 16.50 H Total Protein 5.9 L 7.0 Albumin 3.5 D 4.0 Globulin 3.0 Albumin/Globulin Ratio 1.3 Triglycerides 180 H Cholesterol 186 LDL Cholesterol Direct 117.99 VLDL Cholesterol 36 HDL Cholesterol 37 L Cholesterol/HDL Ratio 5.0 H DS: Diagnosis Discharge Diagnosis (1) Acute non-ST elevation myocardial infarction (NSTEMI): Status: Acute Code(s): I21.4 - Non-ST elevation (NSTEMI) myocardial infarction Meds Home Medications and Allergies Home Medications ?Medication ?Instructions ?Recorded ?Confirmed ?Type clopidogrel 75 mg tablet 75 mg PO DAILY 04/27/22 01/18/24 History gabapentin 300 mg capsule 600 mg PO 1300 04/27/22 01/18/24 History furosemide 20 mg tablet (Lasix) 20 mg PO DAILY 09/15/22 01/18/24 History isosorbide mononitrate 60 mg 60 mg PO DAILY 02/15/23 01/18/24 History tablet,extended release 24 hr bupropion HCl 150 mg 24 hr tablet, 150 mg PO DAILY 01/18/24 01/18/24 History extended release dicyclomine 10 mg capsule 10 mg PO BIDP PRN Abdominal Pain 01/18/24 01/18/24 History duloxetine 30 mg capsule,delayed 60 mg PO DAILY 01/18/24 01/18/24 History release gabapentin 300 mg capsule 300 mg PO DAILY 01/18/24 01/18/24 History gabapentin 300 mg capsule 900 mg PO HS 01/18/24 01/18/24 History nifedipine 30 mg tablet,extended 30 mg PO DAILY 01/18/24 01/18/24 History release 24 hr oxycodone 5 mg tablet 5 mg PO BIDP PRN Moderate Pain 01/18/24 01/18/24 History (Scale Score 5-6) tramadol 50 mg tablet 50 mg PO BIDP PRN Mild Pain (Scale 01/18/24 01/18/24 History Score 1-4) trazodone 50 mg tablet 50 mg PO HS 01/18/24 01/18/24 History aspirin 81 mg tablet,delayed 81 mg PO DAILY 30 days #30 tabs 01/19/24 Rx release atorvastatin 40 mg tablet 40 mg PO HS 30 days #30 tabs 01/19/24 Rx empagliflozin 10 mg tablet 10 mg PO DAILY 30 days #30 tabs 01/19/24 Rx (Jardiance) metoprolol succinate 25 mg 12.5 mg (1/2 x 25 mg) PO DAILY 30 01/19/24 Rx tablet,extended release 24 hr days #15 tabs nicotine 21 mg/24 hr daily 21 mg transdermal DAILYP PRN 01/19/24 Rx transdermal patch Nicotine Cravings 28 days #28 ea ranolazine 500 mg tablet,extended 500 mg PO BID 30 days #60 tabs 01/19/24 Rx release,12 hr sacubitril 24 mg-valsartan 26 mg 1 tab PO BID 30 days #60 tabs 01/19/24 Rx tablet (Entresto) New Prescriptions to Start Prescriptions: aspirin Mitch Torres atorvastatin Brian,Mitch empagliflozin [Jardiance] Mitch Torres metoprolol succinate Mitch Torres nicotine Brian,Mitch ranolazine Mitch Torres sacubitril-valsartan [Entresto] Mitch Torres Allergies Allergy/AdvReac Type Severity Reaction Status Date / Time Sulfa (Sulfonamide Allergy Intermediate Hives Verified 04/13/23 13:21 Antibiotics) hydrocodone (From Vicodin) AdvReac Vomiting Verified 04/13/23 13:21 Discharge Plan Disposition Patient Disposition: Home, Self-Care Condition: Fair Discharge Order Discharge Orders: Discharge Order (Routine); Ordered 01/19/24 Ordered By: Mitch Torres Follow up Plan Follow up with: Judi Cook APRN [Nurse Practitioner] - 01/25/24 1:00 pm Shiraz Jauregui DO [Primary Care Provider] - 01/24/24 1:30 pm Prescriptions/Medication Reconciliation: New atorvastatin 40 mg Tablet 40 mg PO HS 30 Days Qty: 30 0RF aspirin 81 mg Tablet,Delayed Release (Dr/Ec) 81 mg PO DAILY 30 Days Qty: 30 0RF nicotine 21 mg/24 hr Patch 24 Hour 21 mg transdermal DAILYP PRN (Reason: Nicotine Cravings) 28 Days Qty: 28 0RF metoprolol succinate 25 mg Tablet Extended Release 24 Hr 12.5 mg PO DAILY 30 Days Qty: 15 0RF ranolazine 500 mg Tablet Extended Release 12 Hr 500 mg PO BID 30 Days Qty: 60 0RF Jardiance 10 mg Tablet 10 mg PO DAILY 30 Days Qty: 30 0RF sacubitril-valsartan [Entresto] 24-26 mg Tablet 1 tab PO BID 30 Days Qty: 60 0RF Continued gabapentin 300 mg capsule 600 mg PO 1300 clopidogrel 75 mg tablet 75 mg PO DAILY Patient Comments: TAKE 1 TABLET BY MOUTH DAILY furosemide [Lasix] 20 mg tablet 20 mg PO DAILY isosorbide mononitrate 60 mg tablet extended release 24 hr 60 mg PO DAILY nifedipine 30 mg tablet extended release 24hr 30 mg PO DAILY Patient Comments: TAKE 1 TABLET BY MOUTH DAILY trazodone 50 mg tablet 50 mg PO HS Patient Comments: TAKE 1 TABLET BY MOUTH EVERY NIGHT AT BEDTIME FOR SLEEP tramadol 50 mg tablet 50 mg PO BIDP PRN (Reason: Mild Pain (Scale Score 1-4)) Patient Comments: TAKE 1 TABLET BY MOUTH TWICE DAILY NEEDED gabapentin 300 mg capsule 300 mg PO DAILY gabapentin 300 mg capsule 900 mg PO HS oxycodone 5 mg tablet 5 mg PO BIDP PRN (Reason: Moderate Pain (Scale Score 5-6)) dicyclomine 10 mg capsule 10 mg PO BIDP PRN (Reason: Abdominal Pain) bupropion HCl 150 mg tablet extended release 24 hr 150 mg PO DAILY duloxetine 30 mg capsule,delayed release(DR/EC) 60 mg PO DAILY Discontinued metoprolol tartrate 50 mg tablet 50 mg PO BID Patient Comments: TAKE 1 TABLET BY MOUTH TWICE DAILY Problem Reconciliation Problems Reviewed?: Yes Patient Discharge Instructions ACTIVITY: Continue current activity DIET: continue same diet Patient Instructions: Cardiac Catheterization, DI for Coronary Stenting, DI for Surgical Site Infection Print Language: Ghanaian Providers Primary Care Provider: Shiraz Jauregui Admit Provider: Shiraz Weiss Attending Provider: Mitch Torres
--- NOTE | 2024-01-19 11:25 | P.PN_ITS ---
Subjective Subjective Date: 01/19/24 Time: 10:00 Interval history: This is a 63-year-old female who was admitted to the hospital with a non-STEMI. She underwent left cardiac catheterization yesterday and had 2 stents placed to her LAD and 1 stent placed to the diagonal artery. Attempted yet unsuccessful realize realization of a chronically occluded circumflex and right coronary artery. This morning she states she is feeling much better. She denies any chest pain or pressure. She denies any shortness of breath or edema. She denies any fever, chills, nausea, vomiting, diarrhea, PND orthopnea. She states that she is a little fatigued but overall feels well and is ready to be discharged home. Exam Data for Last 24 hours Vital signs and Labs for Last 24 Hours: Temp Pulse Resp BP Pulse Ox O2 Del Method O2 Flow Rate 97.6 F 82 18 107/50 L 92 L Room Air 94 01/19/24 08:00 01/19/24 08:00 01/19/24 08:00 01/19/24 09:39 01/19/24 08:00 01/19/24 09:00 01/18/24 13:07 Laboratory Results - last 24 hr 01/18/24 11:39: WBC 9.1, RBC 5.06, Hgb 15.9, Hct 47.2 H, MCV 93.4, MCH 31.5 H, MCHC 33.8, RDW 14.1, Plt Count 216, MPV 8.6, Neut % (Auto) 69.2, Lymph % (Auto) 21.4, [place] % (Auto) 7.9, Eos % (Auto) 0.7, Baso % (Auto) 0.9, Neut # (Auto) 6.3, Lymph # (Auto) 1.9, [place] # (Auto) 0.7, Eos # (Auto) 0.1, Baso # (Auto) 0.1, Sodium 137, Potassium 4.3, Chloride 110 H, Carbon Dioxide 23, Anion Gap 8.3, BUN 16, Creatinine 1.20 H, Estimated Creat Clear 52, Estimated GFR 45 L, Est GFR ( Amer) 55 L, Glucose 137 H, Calcium 9.1, Total Bilirubin 0.7, AST 87 H, ALT 21, Alkaline Phosphatase 115, Troponin I 16.50 H, Total Protein 7.0, Albumin 4.0, Globulin 3.0, Albumin/Globulin Ratio 1.3 01/18/24 15:43: Activated Clotting Time 247 H* 01/19/24 06:25: WBC 8.7, RBC 4.96, Hgb 15.4, Hct 48.2 H, MCV 97.1, MCH 31.0, MCHC 31.9, RDW 14.3, Plt Count 147 D, MPV 8.8, Neut % (Auto) 72.1, Lymph % (Auto) 18.7, [place] % (Auto) 7.5, Eos % (Auto) 1.1, Baso % (Auto) 0.5, Neut # (A uto) 6.3, Lymph # (Auto) 1.6, [place] # (Auto) 0.7, Eos # (Auto) 0.1, Baso # (Auto) 0.1, Sodium 138, Potassium 4.3, Chloride 109 H, Carbon Dioxide 27, Anion Gap 6.3, BUN 22 H D, Creatinine 1.30 H, Estimated Creat Clear 62, Estimated GFR 41 L , Est GFR ( Amer) 50 L, Glucose 141 H, Calcium 8.4, Total Bilirubin 0.5, Direct Bilirubin 0.4, Conjugated Bilirubin 0.0, Indirect Bilirubin 0.1, Unconjugated Bilirubin 0.1, AST 69 H, ALT 18, Alkaline Phosphatase 98, Total Protein 5.9 L, Albumin 3.5 D, Triglycerides 180 H, Cholesterol 186, LDL Cholesterol Direct 117.99, VLDL Cholesterol 36, HDL Cholesterol 37 L, Cholesterol/HDL Ratio 5.0 H I & O for Last 24 hours: Intake & Output 01/16/24 01/17/24 01/18/24 01/19/24 23:59 23:59 23:59 23:59 Intake Total 240 / 512 1087 / 1087 Output Total 0 / 0 0 / 0 Balance 240 / 512 1087 / 1087 Weight 150 lb 196 lb Narrative: Echocardiogram shows: Mild to moderate reduction in LV systolic function (LVEF 40%). Severe hypokinesis of the septal and anteroseptal LV wall, as well as the inferolateral LV wall. No significant valvular stenosis or regurgitation. Trivial, anterior pericardial effusion is present. No echo indications of tamponade. hyperechoic liver echodensity present, measuring approximately 3.0 cm x 2.0 cm in its largest dimensions. Correlation with recent or new or recent CT abdomen or right upper quadrant ultrasound is recommended. Left heart cath shows: Coronary artery disease as described above Successful stenting the proximal and mid LAD critical disease reduced to 0% with 2 contiguous drug-eluting stents Successful stenting of the large first diagonal artery critical disease reduced to 0% with 1 drug-eluting stent Attempted yet unsuccessful revascularization of a chronically occluded circumflex artery and right coronary Reduced ejection fraction with elevated LVEDP PLAN 1. Dual antiplatelet therapy 2. Standard therapy for systolic heart failure 3. LDL less than 55 to proceed with high intensity statin 4. Avoidance of tobacco products 5. Risk factor modification 6. Cardiac rehabilitation 7. Official echocardiogram 8. Standard therapy for ischemic heart disease Constitutional Constitutional: no acute distress and obese *Routine HEENT Exam Head: Present normocephalic and atraumatic ENT: Present mucous membranes moist *Routine Neck Exam Neck: Present supple, full ROM and normal carotid upstroke; Absent JVD, carotid bruit or lymphadenopathy *Routine Respiratory Exam Respiratory: Present CTA bilaterally, normal respiratory effort, able to speak in complete sentences and symmetric chest movement *Routine Cardiovascular Exam Cardiovascular: Present RRR, Normal S1 and Normal S2; Absent murmur or gallop *Routine Abdominal Exam Abdominal: Present soft and normoactive bowel sounds; Absent tenderness, distended or organomegaly *Routine Extremities Exam Extremities: Present full ROM, pulses intact and normal capillary refill; Absent cyanosis, clubbing or edema *Routine Skin Exam Skin: Present intact and warm; Absent erythema *Routine Neurological Exam Neurological: Present alert, oriented X3 and CN II-XII intact; Absent sensory deficit or motor deficit Routine Psychiatric Exam Psychiatric: Present normal affect Progress Note: A&P Assessment and plan (1) Acute non-ST elevation myocardial infarction (NSTEMI): Status: Acute (2) CAD (coronary artery disease): Status: Acute (3) COPD (chronic obstructive pulmonary disease): Status: Acute (4) Hyperlipidemia: Status: Acute (5) Diabetes mellitus: Status: Acute (6) HTN (hypertension), benign: Status: Acute (7) Tobacco abuse: Status: Acute (8) AICD (automatic cardioverter/defibrillator) present: Status: Acute Assessment and Plan Assessment and Plan for All Diagnoses:: Plan: 1. The patient presented to the emergency department with chest pain. She is found to have a non-STEMI. She was taken directly to the cardiac Bath Attendant and had 2 stents placed to the LAD and 1 stent placed to the first diagonal artery. Attempted yet unsuccessful revascularization of the circumflex artery and right coronary artery. The patient tolerated the procedure well. She will be on aspirin and Plavix for dual antiplatelet therapy. 2. Her coronary artery disease is likely stable. 3. Her blood pressure is well-controlled. 4. Her LDL goal is less than 55. Continue Crestor. Her LDL is 117. She has been started on Lipitor. 5. Echocardiogram shows her ejection fraction is 40%. She has a known history of HFrEF. She has been started on Entresto. 6. Her carvedilol was stopped through the night and she was switched to metopro lol due to a little bit of hypotension. This is acceptable. 7. Continue Ranexa. 8. Isosorbide has been stopped due to hypotension. Her blood pressure is well- controlled this morning. 9. AICD is in place. If this will now be followed in our cardiology clinic on an outpatient basis. 10. No further recommendations at this time from a cardiac standpoint. The patient can be discharged home today from a cardiac standpoint. She will need to follow-up in cardiology clinic next week. 11. The patient can be discharged on the following cardiac medications: Aspirin 81 mg daily, Lipitor 40 mg p.o. nightly, Plavix 75 mg daily, Jardiance 10 mg daily, Lasix 20 mg daily, metoprolol succinate 12.5 mg p.o. daily, Ranexa 500 mg p.o. twice daily, and Entresto 24/26 mg p.o. twice daily Thank you for the opportunity to help participate in the care of this patient. All recommendations and orders are per Dr. Manzano.
[2024-01-19 12:00] VITALS: BP 116/71; PULSE 67; PULSE 70; RESP 16; TEMP 36.7; O2SAT 92
[2024-01-19] MEDS: GABAPENTIN 300MG CAPSULE 600 MG PO (12:20)
--- NOTE | 2024-01-19 15:26 | SW/DCPLANNER ---
Talked to patient about resources and where it was located in her folder from the hospital. August Vieyra
[2024-01-19 16:37] LABS: HIV Combo NEGATIVE (Negative)
[2024-01-20 21:45] LABS: HCV Ab Reactive (Non Reactive)
--- NOTE | 2024-01-22 11:34 | SW/DCPLANNER ---
Spoke with patient on the phone. Patient stated that she is still sore and knows it takes time for her body to bounce back from a heart attack. Patient stated that she was able to pickle solution maker her medicine and that she is aware of her upcoming appointments. Patient stated that she has no concerns or questions at this time. August Vieyra
== END 2024-01-19 15:00 | disposition home or self-care (01) | DRG 322 ==
LOC: ER 12:55 → CATHLAB 13:09 → 2ND 14:53
PROVIDERS: Nurse Practitioner Family; Admitting Provider Internal Medicine; Emergency Provider Emergency Medicine; PCP Internal Medicine; Visit Provider Internal Medicine Adolescent Medicine
PROC: 027035Z Dilation of Coronary Artery, One Artery with Two Drug-eluting Intraluminal Devices, Percutaneous Approach (ICD-10-PCS; principal; 2024-01-18 12:45)
DX: I21.4 Non-ST elevation (NSTEMI) myocardial infarction (principal); I13.0 Hypertensive heart and chronic kidney disease with heart failure and stage 1 through stage 4 chronic kidney disease, or unspecified chronic kidney disease; I50.20 Unspecified systolic (congestive) heart failure; F17.210 Nicotine dependence, cigarettes, uncomplicated; Z79.899 Other long term (current) drug therapy; N18.9 Chronic kidney disease, unspecified; E11.22 Type 2 diabetes mellitus with diabetic chronic kidney disease; I25.118 Atherosclerotic heart disease of native coronary artery with other forms of angina pectoris; J44.9 Chronic obstructive pulmonary disease, unspecified; Z95.810 Presence of automatic (implantable) cardiac defibrillator; Z71.6 Tobacco abuse counseling
CPT/HCPCS: 36415; 71046; 80048; 80053; 80061; 80076; 84484; 85025; 85347; 86803; 87389; 92941; 93005; 93306; 93458; 99152; 99153; 99291; C1725; C1769; C1874; C9606; J1200; J1644; J1650; J2250; J3010; Q9967

== ENCOUNTER 2024-06-24 10:38 | Outpatient (CLI) | payer MEDICARE, SELFPAY ==
[2024-06-24 11:11] LABS: Basophils # 0.1 K/mm3 (0-0.2); Basophils % 0.9 % (0.1-2.0); Eosinophils # 0.2 Kmm3 (0.0-0.4); Eosinophils % 2.3 % (0.1-12.0); Hematocrit 47.6 % (37.0-47.0); Immature Granulocytes # 0.01 10^3uL; Immature Granulocytes % 0.1 %; Lymphocytes # 1.8 K/mm3 (0.7-4.5); Mean Corpuscular HGB Conc 31.5 g/dL (31.8-35.4); Mean Corpuscular Hemoglobin 30.3 pg (27.0-31.2); Mean Corpuscular Volume 96.2 fl (81-99); Mean Platelet Volume 11.7 fl (7.4-10.4); Monocytes # 0.7 K/mm3 (0.1-1.0); Monocytes % 9.5 % (1.7-9.3); Neutrophils # 4.8 K/mm3 (1.8-7.8); Neutrophils % 63.2 % (37.0-80.0); Nucleated Red Blood Cells # 0 10^3/uL; Nucleated Red Blood Cells % 0 %; Platelet Count 173 K/mm3 (142-424); Red Blood Count 4.95 M/mm3 (4.20-5.40); Red Cell Distribution Width 12.5 % (11.5-17.5); Red Cell Distribution Width-SD 44.8 fL; White Blood Count 7.6 K/mm3 (4.8-10.8)
[2024-06-24 11:35] LABS: Albumin Level 4.4 g/dl (3.5-5.0); Chloride 111 mmol/L (98-107); Sodium 143 mmol/L (136-145)
[2024-06-24 11:38] LABS: Alanine Aminotransferase 13 U/L (12-78); Aspartate Amino Transferase 20 U/L (14-36); Bilirubin,Unconjugated 0.4 mg/dL (0.0-1.1); Blood Urea Nitrogen 22 mg/dl (7-17); Carbon Dioxide 27 mmol/L (22.0-30.0); Cholesterol 173 mg/dl (140-200); Estimated Glomerular Filt Rate 35 ml/min (>60); GFR (African American) 42 ML/MIN (>60); Total Protein,Serum 7.2 g/dl (6.3-8.2); Triglycerides 207 mg/dl (30-150); VLDL Cholesterol 41 mg/dL (0-40)
[2024-06-24 11:39] LABS: Alkaline Phosphatase 93 U/L (38-126); Bilirubin,Direct 0.2 mg/dl (0.0-0.4); Bilirubin,Indirect 0.3 mg/dL (0.0-0.9); Bilirubin,Total 0.5 mg/dl (0.2-1.3); Calcium 9.7 mg/dl (8.4-10.2); Chol/HDL Ratio 3.9 (1-3.5); Glucose 96 mg/dl (74-100); HDL Cholesterol 44 mg/dl (40-60); Magnesium 1.9 mg/dl (1.6-2.3)
[2024-06-24 11:50] LABS: Direct LDL Cholesterol 89.67 mg/dL (100-129)
[2024-06-24 11:57] LABS: Free T4 (Free Thyroxine) 0.98 ng/dl (0.78-2.19)
[2024-06-24 12:10] LABS: Thyroid Stimulating Hormone 1.31 uIU/mL (0.465-4.68)
[2024-06-24 12:18] LABS: Hemoglobin A1C 5.4 % (4.0-6.0)
== END 2024-06-24 23:59 | disposition home or self-care (01) ==
LOC: LAB 10:38
PROVIDERS: PCP Internal Medicine; Visit Provider Nurse Practitioner
DX: I21.4 Non-ST elevation (NSTEMI) myocardial infarction (principal); E87.5 Hyperkalemia; I11.9 Hypertensive heart disease without heart failure; E11.9 Type 2 diabetes mellitus without complications
CPT/HCPCS: 36415; 80048; 80061; 80076; 83036; 83735; 84439; 84443; 85025

== ENCOUNTER 2024-07-05 08:16 | Outpatient (CLI) | payer MEDICARE, SELFPAY ==
--- NOTE | 2024-07-05 08:30 | US_ITS ---
FINAL REPORT CLINICAL HISTORY: hyperechoic liver echodensity COMPARISON: None FINDINGS: Sonographic images of the right upper quadrant were obtained. The pancreas is obscured. There is a coarse echotexture of the liver which may be due to mild fatty infiltration. No discrete lesion seen. The gallbladder appears normal without evidence of gallstones.There is no evidence of biliary ductal dilatation.The common duct measures 4mm. Limited images of the right kidney are unremarkable. IMPRESSION: Coarsened echotexture of the liver may be due to mild fatty infiltration. Reviewed, Interpreted and Dictated by Gustavo Smith MD Transcribed by Matilde Leavitt Authenticated and [facility]
== END 2024-07-05 23:59 | disposition home or self-care (01) ==
LOC: RAD 08:17
PROVIDERS: PCP Internal Medicine; Visit Provider Nurse Practitioner
DX: R93.2 Abnormal findings on diagnostic imaging of liver and biliary tract (principal); I10 Essential (primary) hypertension; I25.10 Atherosclerotic heart disease of native coronary artery without angina pectoris
CPT/HCPCS: 76705

== ENCOUNTER 2024-09-23 08:48 | Day surgery (SDC) | payer MEDICARE, SELFPAY ==
[2024-09-23 08:51] VITALS: BMI 26.9
[2024-09-23 09:03] VITALS: BP 95/68; PULSE 56; RESP 18; O2SAT 94
[2024-09-23 09:09] LABS: Hematocrit 46.2 % (37.0-47.0); Hemoglobin 14.8 g/dL (12.2-16.2); Immature Granulocytes % 0.4 %; Mean Corpuscular HGB Conc 32.0 g/dL (31.8-35.4); Mean Corpuscular Hemoglobin 30.3 pg (27.0-31.2); Mean Corpuscular Volume 94.5 fl (81-99); Nucleated Red Blood Cells % 0 %; Platelet Count 185 K/mm3 (142-424); Red Blood Count 4.89 M/mm3 (4.20-5.40); Red Cell Distribution Width-SD 46.2 fL; White Blood Count 15.9 K/mm3 (4.8-10.8)
[2024-09-23 09:21] LABS: Chloride 110 mmol/L (98-107); Potassium 4.6 mmoL/L (3.5-5.1); Sodium 140 mmol/L (136-145)
[2024-09-23 09:24] LABS: Anion Gap 13.6 mEq/L (5-15); Blood Urea Nitrogen 34 mg/dl (7-17); Calcium 9.3 mg/dl (8.4-10.2); Carbon Dioxide 21 mmol/L (22.0-30.0); Creatinine Clearance Estimated 35 mL/min (50-200); Creatinine,Serum 1.70 mg/dl (0.52-1.04); Estimated Glomerular Filt Rate 30 ml/min (>60); GFR (African American) 37 ML/MIN (>60); Glucose 99 mg/dl (74-100)
--- NOTE | 2024-09-23 10:09 | EXP.ANES.CKL ---
[facility] Disclaimer: The information contained in this section may have been updated after the patient was seen, as this information can be updated by other users. Medical History Pacemaker at end of battery life Anal fistula Recent heart attack Hypertensive emergency Chronic kidney disease History of common carotid artery stent placement Carotid stenosis Tobacco abuse Insomnia HTN (hypertension), benign Hyperlipidemia GERD (gastroesophageal reflux disease) Diabetes mellitus Depression Low back pain Diverticulosis PVD (peripheral vascular disease) COPD (chronic obstructive pulmonary disease) CVA (cerebral vascular accident) CKD (chronic kidney disease) CAD (coronary artery disease) Arthritis Anxiety Surgical History S/P laparoscopic-assisted sigmoidectomy History of bladder surgery H/O carotid endarterectomy History of implantable cardioverter-defibrillator (ICD) placement Hx of cardiac cath H/O total hysterectomy H/O laparoscopy History of appendectomy H/O colonoscopy Family History Father Coronary artery disease Cancer colon Heart attack Mother Coronary artery disease Heart attack Hypertension Stroke Brother Coronary artery disease Heart attack Diabetes Sister Coronary artery disease Diabetes Heart attack Hyperlipidemia Social History (Updated 09/23/24 @ 09:04 by Soren Valerio RN) Smoking Status: Current every day smoker tobacco type: cigarettes packs per day: 1 years smoked: 40 quit status: considering quitting alcohol intake: never substance use type: denies use current occupational status: disabled Travel in the last 8 weeks?: None marital status: Have you lived/traveled outside [place] in past 30 days?: No Contact w/someone who lives/traveled outside US past 30 days?: No Exposure to someone with infectious disease in past 14 days?: No Do you have a fever (greater than 100.4 F or 38 C)?: No Have you tested positive for COVID-19?: No Exposed to someone with COVID-19 in past 14 days?: No Do you have a sore throat?: No Do you have a cough?: No Do you have any weakness?: No Do you have any diarrhea?: No Are you experiencing any unusual bleeding?: No Do you have any muscle aches/pain?: No Do you have any abdominal pain?: No Are you experiencing loss of taste or smell?: No [facility] Anesthesia Checklist Patient Identification Patient Identification: Arm Band Structural Data Admitted From: Home Planned Operative Procedure/s: Pacemaker Generator Change and Lead Revision Consent for Planned Operative Procedure(s) Verified: Yes Verified Documents: Surgical Consent and History and Physical NPO Status Verified Time NPO: 00:00 Additional verifications Anesthesia Reactions: No Airway Assessment Mallampati Score:: Class II C-Spine Mobility Assessed: Yes TMJ Mobility Assessed: Yes Dentition: Good Dentition Neurological Assessment Level of Consciousness: Awake, Alert and Appropriate Anesthesia Plan Anesthesia Risk discussed: Yes Anesthesia Plan: Verified ASA Class: III Anesthesia Type: MAC
[2024-09-23 11:19] LABS: Microscopic, Urine URINE MICROSCOPIC (MICROSCOPIC)
[2024-09-23 11:22] LABS: Bilirubin,Urine Negative (Negative); Color,Urine YELLOW (Yellow); Glucose,Urine (UA) 2+ (Negative); Ketones,Urine Negative (Negative); Leukocyte Esterase,Urine 2+ (Negative); PH,Urine 6.0 (5.0-8.5); Protein,Urine 1+ (Negative); Urobilinogen,Urine 0.2 EU/dl (0.2)
[2024-09-23 11:40] LABS: Specific Gravity, Urine 1.020 (1.005-1.030)
[2024-09-23 11:42] LABS: Bacteria,Urine 2+ /lpf; WBC,Urine TNTC #/hpf (0-3)
--- NOTE | 2024-09-23 12:11 | SUR.PHASEII ---
PATIENT PROCEDURE RESCHEDULED TO MONDAY, TAKEN TO INFUSION FOR ANTIBIOTICS
[2024-09-23] MEDS: 0.9 % SODIUM CHLORIDE 50 ML 25 ML IV (12:39)
[2024-09-23 12:45] VITALS: BP 141/82; PULSE 78; RESP 18; TEMP 36.8; O2SAT 98
[2024-09-23] MEDS: CEFTRIAXONE 1 GM 1 GM in 0.9 % SODIUM CHLORIDE 50 ML IV (12:45)
[2024-09-23 13:20] VITALS: BP 137/79; PULSE 81
== END 2024-09-23 13:30 | disposition home or self-care (01) ==
PROVIDERS: PCP Internal Medicine; Visit Provider Internal Medicine
PROC: 0JPT0PZ Removal of Cardiac Rhythm Related Device from Trunk Subcutaneous Tissue and Fascia, Open Approach (ICD-10-PCS; principal; 2024-09-23 08:00)
DX: Z45.02 Encounter for adjustment and management of automatic implantable cardiac defibrillator (principal); Z53.9 Procedure and treatment not carried out, unspecified reason; I13.0 Hypertensive heart and chronic kidney disease with heart failure and stage 1 through stage 4 chronic kidney disease, or unspecified chronic kidney disease; I50.20 Unspecified systolic (congestive) heart failure; E11.22 Type 2 diabetes mellitus with diabetic chronic kidney disease; N18.9 Chronic kidney disease, unspecified; I25.118 Atherosclerotic heart disease of native coronary artery with other forms of angina pectoris; J44.9 Chronic obstructive pulmonary disease, unspecified; I25.2 Old myocardial infarction; E78.2 Mixed hyperlipidemia; F17.210 Nicotine dependence, cigarettes, uncomplicated; Z79.82 Long term (current) use of aspirin; Z79.02 Long term (current) use of antithrombotics/antiplatelets; Z79.899 Other long term (current) drug therapy; Z95.5 Presence of coronary angioplasty implant and graft; Z79.84 Long term (current) use of oral hypoglycemic drugs; Z88.5 Allergy status to narcotic agent; Z88.2 Allergy status to sulfonamides; Z82.49 Family history of ischemic heart disease and other diseases of the circulatory system
CPT/HCPCS: 80048; 81001; 85025; 87086; 87088; 87186; 96365; J0696; J2004

== ENCOUNTER 2024-09-26 08:35 | Day surgery (SDC) | payer MEDICARE, SELFPAY ==
[2024-09-26] VITALS (7 sets, daily range): BP systolic 104–132; BP diastolic 63–72; PULSE 70–77; RESP 18–20; O2SAT 92–96; BMI 26.9
--- NOTE | 2024-09-26 07:26 | IR_ITS ---
APPROVED REPORT Patient Location: [facility] [employer]: Soren Escobedo RT (R) PROCEDURES 1. Removal of chronic generator. 2. Pocket revision for AICD. 3. Placement of atrial sensing and pacing coil into the right atrial appendage. 4. Placement of a ventricular sensing, pacing and shocking coil in the right ventricular apex. 5. Capping of chronic right ventricular lead. 6. Permanent AICD placement. INDICATION Madet II, Ischemic Cardiomyopathy, Ejection Fraction 35% Informed consent was obtained prior to the procedure. COMPLICATIONS none Estimated Blood Loss: less than 10mls TECHNIQUE 1% Lidocaine with epinephrine used to anesthetized the left anterior aspect of the chest. Scalpel was used to make the initial cutaneous incision and to dissect down tinto the fascia. The chronic generator was removed from the pocket and digitally manipulated to revise pocket for the defibrillator. The patient was then placed in Trendelenburg position and the subclavian vein was accessed 2 times via the Selinger technique. A 8 Slovenian sheath was placed under fluoroscopic guidance into the subclavian vein. The dilator was removed from the sheath. Using fluoroscopic guidance, the ventricular lead was placed into the right ventricular apex, screwed and secured into place. Electronic interrogation proved acceptable thresholds and voltage within the lead. Using 3-0 silk, the ventricular lead was then secured into place and sheath peeled away. A 6 Slovenian fresh sheath and dilator was placed over the existing wire. Using fluoroscopic guidance, the atrial lead was then placed into the right atrial appendage and screwed and secured in place. Electrical interrogation demonstrated acceptable thresholds and voltage number. The atrial lead was then secured into place using 3-0 silk and sheath peeled away. Chronic right ventricular lead was cut and capped, secured with a silk tie. 1 gram of Ancef was used to flush the pocket. Both leads were connected to generator and tested via computer. The defibrillator then secured to the fascia. Monocryl was used to close the subcutaneous layers while anthony were used to close the cutaneous layer. A pressure dressing was placed and the patient was transferred to the postop holding area in stable condition for postoperative care. INTERROGATION Explanted generator: Ellipse VR [id number] Serial Number: [id number] Capped RV lead: 1580/65 Serial Number: [id number] Generator Model number: [id number] Generator Serial number: [id number] Atrial lead model number: [id number] Atrial lead serial number: [id number] P-wave: 3.0mV Impedance: 780 ohms Threshold: 1.875V@0.5ms Right Ventricular lead model number: [id number] Right Ventricular lead serial number: [id number] R-wave: 12mV Impedance: 651 ohms Threshold: 1.0v@0.5ms High Voltage: 43 ohms Pacing Parameters: Mode: DDD Base/Max Track:60 ppm / 130 ppm No diaphragmatic stimulation at 10 volts. IMPRESSION 1. Successful Removal of chronic generator. 2. Successful Pocket revision for AICD. 3. Successful Placement of atrial sensing and pacing coil into the right atrial appendage. 4. Successful Placement of a ventricular sensing, pacing and shocking coil in the right ventricular apex. 5. Successful Capping of chronic right ventricular lead. 6. Successful Permanent AICD placement. PLAN 1. Post-op wound care. Electronically signed by : Shiraz Weiss MD 09/27/2024 10:03:39
[2024-09-26 09:12] LABS: Hematocrit 44.8 % (37.0-47.0); Hemoglobin 14.6 g/dL (12.2-16.2); Immature Granulocytes % 0.3 %; Mean Corpuscular HGB Conc 32.6 g/dL (31.8-35.4); Mean Corpuscular Hemoglobin 30.7 pg (27.0-31.2); Mean Corpuscular Volume 94.3 fl (81-99); Nucleated Red Blood Cells % 0 %; Platelet Count 182 K/mm3 (142-424); Red Blood Count 4.75 M/mm3 (4.20-5.40); Red Cell Distribution Width-SD 46.2 fL; White Blood Count 6.5 K/mm3 (4.8-10.8)
[2024-09-26 09:26] LABS: Anion Gap 16.4 mEq/L (5-15); Blood Urea Nitrogen 28 mg/dl (7-17); Calcium 9.1 mg/dl (8.4-10.2); Carbon Dioxide 21 mmol/L (22.0-30.0); Chloride 109 mmol/L (98-107); Creatinine Clearance Estimated 35 mL/min (50-200); Creatinine,Serum 1.70 mg/dl (0.52-1.04); Estimated Glomerular Filt Rate 30 ml/min (>60); GFR (African American) 37 ML/MIN (>60); Glucose 112 mg/dl (74-100); Potassium 4.4 mmoL/L (3.5-5.1); Sodium 142 mmol/L (136-145)
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
[2024-09-26] MEDS: 0.9 % SODIUM CHLORIDE 1000ML 1,000 ML 25 ML IV (10:30)
[2024-09-26] MEDS: LIDOCAINE 1% W/EPI 1:100,000 20ML VIAL 20 ML SQ (10:34)
--- NOTE | 2024-09-26 11:58 | XR_ITS ---
FINAL REPORT TECHNIQUE: Single view chest CLINICAL HISTORY: post lead revision COMPARISON: 03/20/2023 FINDINGS: A single view of the chest was obtained. The heart is mildly enlarged. A pacemaker is in place. There is a calcified granuloma in the left midlung. Mild chronic changes are noted. The lungs are otherwise clear. There is no pneumothorax. IMPRESSION: No acute cardiopulmonary process. Reviewed, Interpreted and Dictated by Gustavo Smith MD Transcribed by Demetra Hogan Authenticated and [facility]
== END 2024-09-26 14:01 | disposition home or self-care (01) ==
LOC: CATHLAB 08:35
PROVIDERS: PCP Internal Medicine; Visit Provider Internal Medicine
PROC: 0JPT0PZ Removal of Cardiac Rhythm Related Device from Trunk Subcutaneous Tissue and Fascia, Open Approach (ICD-10-PCS; principal; 2024-09-26 08:15)
PROC: 0JWT0PZ Revision of Cardiac Rhythm Related Device in Trunk Subcutaneous Tissue and Fascia, Open Approach (ICD-10-PCS; CPT 33223; 2024-09-26 08:15)
DX: I25.5 Ischemic cardiomyopathy (principal); Z45.010 Encounter for checking and testing of cardiac pacemaker pulse generator [battery]; I13.0 Hypertensive heart and chronic kidney disease with heart failure and stage 1 through stage 4 chronic kidney disease, or unspecified chronic kidney disease; N18.9 Chronic kidney disease, unspecified; I50.21 Acute systolic (congestive) heart failure; E11.22 Type 2 diabetes mellitus with diabetic chronic kidney disease; I25.118 Atherosclerotic heart disease of native coronary artery with other forms of angina pectoris; E78.2 Mixed hyperlipidemia; J44.9 Chronic obstructive pulmonary disease, unspecified; I25.2 Old myocardial infarction; F17.210 Nicotine dependence, cigarettes, uncomplicated; Z79.82 Long term (current) use of aspirin; Z79.02 Long term (current) use of antithrombotics/antiplatelets; Z79.84 Long term (current) use of oral hypoglycemic drugs; Z79.899 Other long term (current) drug therapy; Z95.810 Presence of automatic (implantable) cardiac defibrillator; Z95.5 Presence of coronary angioplasty implant and graft; Z88.2 Allergy status to sulfonamides; Z88.5 Allergy status to narcotic agent; Z82.3 Family history of stroke; Z82.49 Family history of ischemic heart disease and other diseases of the circulatory system
CPT/HCPCS: 33263; 71045; 80048; 85025; C1721; C1769; C1895; C1898; J1200; J2004; J2250; J2704; J3010; J7030

== ENCOUNTER 2024-11-06 13:41 | Emergency (ER) | payer MEDICARE, SELFPAY ==
[2024-11-06] VITALS (17 sets, daily range): BP systolic 117–163; BP diastolic 58–94; PULSE 59–75; RESP 12–19; TEMP 37–37.3; O2SAT 90–98; BMI 25.8
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
--- NOTE | 2024-11-06 13:55 | XR_ITS ---
FINAL REPORT CLINICAL HISTORY: trauma COMPARISON: 01/18/2024 FINDINGS: SINGLE VIEW CHEST There is mild cardiomegaly. Pacer is identified. The mediastinum is unremarkable. There is scattered calcified residua of old granulomatous disease. The lungs are otherwise clear. There is no pneumothorax. IMPRESSION: No acute process. Reviewed, Interpreted and Dictated by Gustavo Smith MD Transcribed by Merari Montelongo Authenticated and [facility]
--- NOTE | 2024-11-06 13:55 | XR_ITS ---
FINAL REPORT CLINICAL HISTORY: trauma FINDINGS: PELVIS One view was obtained. There is no fracture or dislocation. The joint spaces appear normal. Bilateral iliac artery stents are identified. There are surgical clips in the floor of the pelvis. IMPRESSION: No acute process. Reviewed, Interpreted and Dictated by Gustavo Smith MD Transcribed by Merari Montelongo Authenticated and [facility]
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
--- OUTSIDE RECORDS SUMMARY | 2024-11-06 13:58 | XMS_ITS | Clinical Summary ---
Author Organization Healthcare Address [address] [place] [address] Care Team Providers Care Ems Instructor Name Role Phone Judi Jauregui DO Unavailable [phone] Pcp, No Primary Care Provider Unavailabl e Allergies Active Allergy Reactions Criticality Noted Date Comments Hydrocodone Nausea,Dizziness Low 04/17/2023 Sulfa Drugs Hives High 08/19/2010 About 30 years ago Medications metoprolol tartrate (Lopressor) 50 MG tablet Take 1 tablet (50 mg) by mouth 2 (two) times a day. 4 Active albuterol 108 (90 Base) MCG/ACT inhaler Inhale 2 puffs every 6 (six) hours if needed. Active amLODIPine (Norvasc) 5 MG tablet Take 1 tablet (5 mg) by mouth 1 (one) time each day. Active aspirin 325 MG tablet Take 2 tablets (650 mg) by mouth 1 (one) time each day in the morning. Active buPROPion XL (Wellbutrin XL) 150 MG 24 hr tablet Take 1 tablet (150 mg) by mouth 1 (one) time each day in the morning. 4 Active clopidogrel (Plavix) 75 MG tablet Take 1 tablet (75 mg) by mouth Daily. Active dicyclomine (Bentyl) 10 MG capsule Take 1 capsule (10 mg) by mouth 2 (two) times a day. 4 Active furosemide (Lasix) 20 MG tablet Take 2 tablets (40 mg) by mouth every other day. 4 Active gabapentin (Neurontin) 300 MG capsule Take by mouth 4 (four) times a day. One capsule in the morning, 2 capsules in the afternoon, 1 capusle in the evening, and 3 capsules at bedtime Active lisinopril 10 MG tablet Take 1 tablet (10 mg) by mouth 1 (one) time each day. Active nitroglycerin (Nitrostat) 0.[address] 1 tablet (0.4 mg) under the tongue. 3 Active omeprazole (PriLOSEC) [address] capsule Take 1 capsule (40 mg) by mouth 1 (one) time each day. 3 Active traMADol (Ultram) 50 MG tablet Take 1 tablet (50 mg) by mouth every 4 (four) hours if needed for moderate pain. 4 Active traZODone (Desyrel) 50 MG tablet Take 1 tablet (50 mg) by mouth every night. Active DULoxetine (Cymbalta) [address] capsule Take 1 capsule (30 mg) by mouth 2 (two) times a day. 4 Active isosorbide mononitrate ER (Imdur) 60 MG 24 hr tablet Take 1 tablet (60 mg) by mouth 1 (one) time each day. Do not crush or chew. Active rosuvastatin (Crestor) 20 MG tablet Take 1 tablet (20 mg) by mouth every night. Active diazePAM (Valium) 5 MG tablet Take 1 tablet (5 mg) by mouth if needed. Active b complex vitamins capsule Take 1 capsule by mouth 1 (one) time each day. Active senna (Senokot) 8.6 MG tablet Take 1 tablet (8.6 mg) by mouth at night if needed for constipation. 20 tablet 4 Active acetaminophen (Tylenol) 325 MG tablet Take 3 tablets (975 mg) by mouth every 8 (eight) hours if needed for pain. 40 tablet 4 Active naloxone (Kloxxado) 8 mg/0.1 mL nasal spray 1. Give 1 spray in nostril for no/slow breathing or cannot wake after opioid use 2. Call 911 3. Repeat in other nostril if symptoms continue 1 each 4 Active oxyCODONE (Roxicodone) 5 MG immediate release tablet Take 1 tablet (5 mg) by mouth every 6 (six) hours if needed for moderate pain or severe pain. 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 05/20/2023 Cancer Staging:Clinical stage from 04/25/2023:FIGO Stage IA(cT1a, cN0, cM0) - Signed by Jonah Pastor MD on 05/20/2023 Tobacco use disorder 04/17/2023 Vulvar lesion 04/17/2023 Bilateral carotid artery stenosis 04/13/2023 Overview (04/13/2023): S/P R CEA 2002 (Dr Aries Rodrigez) S/P RADHA stent 02/27/2015 (Dr Vishal Foster) Elevating velocities RADHA stent 12/15/2021 Last Assessment & Plan: Needs L CCA to SCA bypass, re-evaluate with CDS after bypass HF (heart failure) 04/13/2023 VF (ventricular fibrillation) 04/13/2023 VT (ventricular tachycardia) 04/13/2023 Stage 3 chronic kidney disease 12/21/2021 Overview (04/13/2023): GFR 51 Last Assessment & Plan: stable Type 2 diabetes mellitus wit h circulatory disorder, without long-term current use of insulin 12/21/2021 Ischemic cardiomyopathy 07/20/2019 Left subclavian artery occlusion 04/05/2019 Overview (04/13/2023): Since 2019 Has VBI Last Assessment & Plan: L CCA to SCA bypass with goretex Carotid artery disease without cerebral infarcti on 03/14/2018 Obesity (BMI 30-39.9) 02/27/2015 Hyperlipidemia 02/09/2015 PVD (peripheral vascular disease) 01/12/2015 Depression 11/19/2014 Hypertension 11/06/2012 Diverticulitis of sigmoid colon 08/25/2012 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 single chamber ICD implanted 11.26.2014 (RV lead Riata [id number] implanted 01.03.2005). Obstructive sleep apnea 08/19/2010 Hiatal hernia 03/25/2010 Resolved Problems Problem Noted Date Diagnosed Date Resolved Date Second hand smoke exposure 04/17/2023 0 10/27/2024 Acute kidney injury 07/19/2019 10/28/19 25 Immunizations Immunization Administration Dates Next Due Influenza Vaccine, Quadrival ent, Adjuvanted 10/28/2014,01/25/2013 Influenza Whole 12/23/2015, 5,01/25/2013,2006 Influenza, recombinant, quad rivalent, injectable, preservative free 10/22/2019 Pneumococcal 20-nighat Conj Vaccine 10/25/2021 Pneumococcal Conjugate PCV 13 08/15/2015 Tdap 08/15/2015 Zoster, live 12/23/2015 Family History Medical History Relation Name Comments Bladder cancer Father Colon cancer Father Bladder cancer Sister Relation Name Status Comments Father Sister Social History Tobacco Use Types Packs/Day Years Used Date Smoking Tobacco: Every Day Cigarettes 0.5 30 Smokeless Tobacco: Never Tobacco Cessation:Ready to Q uit: Not Asked; Counseling Given: Not Answered Alcohol Use Standard Drinks/Week Comments Never 0 (1 standard drink = 0.6 oz pur e alcohol) Humiliation, Afraid, Rape, and Kick questionnair e Answer Date Recorded Within the last year, have y ou been afraid of your partner or ex-partner? No 04/27/2023 Within the last year, have y ou been humiliated or emotionally abused in other ways by your partner or ex-partner? No Within the last year, have y ou been kicked, hit, slapped, or otherwise physically hurt by your partner or ex-partner? No 04/27/2023 Within the last year, have y ou been raped or forced to have any kind of sexual activity by your partner or ex-partner? No 04/27/2023 PHQ-2 Answer Date Recorded Patient Health Questionnaire-2 Score 1 05/22/2023 Hunger Vital Sign Answer Date Recorded Within the past 12 months, y ou worried that your food would run out before you got the money to buy more. Never true 04/27/19 24 Within the past 12 months, t he food you bought just didn't last and you didn't have money to get more. Never true 04/27/2023 PRAPARE - Transportation Answer Date Re corded In the past 12 months, has l ack of transportation kept you from medical appointments or from getting medications? No 04/07 In the past 12 months, has l ack of transportation kept you from meetings, work, or from getting things needed for daily living? No 04/27/2023 Housing Stability Vital Sign Answer Gio e Recorded In the last 12 months, was t here a time when you were not able to pay the mortgage or rent on time? No 04/27/2023 Number of Places Lived in the Last Year Not on f ile 04/27/2023 In the last 12 months, was t here a time when you did not have a steady place to sleep or slept in a fci (including now)? No 04/27/2023 CAGE ASSESSMENT Answer Date Recorded Cage unable to access Not on file 04/25/2023 Cage max number of drinks Not on file 2023 Cage Beverages a week Not on file 04/25/2023 Have you ever felt you should CUT down on your d rinking? 0 04/25/2023 Have you been ANNOYED by people criticizing your drinking? 0 04/25/2023 Have you felt GUILTY about your drinking? 0 04/25/2023 Have you had a drink first t emma in the morning ([employer]) to steady your nerves or to get rid of a hangover? 0 04/25/2023 CAGE Questionnaire Score 0 024 Utilities Answer Date Recorded In the past 12 months has th e electric, gas, oil, or water company threatened to shut off services in your home? No 04/27/2023 Comments No Sex and Gender Information Value Date Recorded Sex Assigned at Female 04/25/2023 7:09 AM EDT Legal Sex Female 4:28 PM EDT Gender Identity Female 04/25/2023 7:09 AM EDT Sexual Orientation Not on file Last Filed Vital Signs Vital Sign Reading Time Taken Comments Blood Pressure 134/74 05/22/2023 1:26 PM EDT Pulse 60 05/22/2023 1:26 PM EDT Temperature 36.5 C (97.7 F) 05/22/2023 1:26 PM EDT Respiratory Rate 12 05/22/2023 1:26 PM EDT Oxygen Saturation 90% 04/27/2023 12:06 PM EDT Inhaled Oxygen Concentration - - Weight 73.1 kg (161 lb 2.5 oz) 05/22/2023 1:26 P M EDT Height 157.5 cm (5' 2 ) 05/22/2023 1:26 PM EDT Body Mass Index 29.48 05/22/2023 1:26 PM EDT Plan of Treatment Health Maintenance Due Date Last Done Comments [facility]-HIV Screening 1960 [facility]-Hepatitis C Screening 1960 [facility]-Medicare Annual Wellness (AWV) 1960 [facility]-/Child/Adol SDOH Screenings 1960 [id number] Vaccine (#1) 1965 Diabetes: Dental Exam 1970 [facility]- SDOH Screenings 1978 [facility]-Adult SDOH Screenings 1978 CT Colonography 2005 Colonoscopy 2005 FIT-DNA 2005 FIT 2005 FOBT 2005 Sigmoidoscopy 2005 [facility]-Colorectal Cancer Screening 2005 [facility]-Breast Cancer Screening 2010 [facility]-Zoster Vaccines (1 of 2) 02/17/2016 12/23/2015 [facility]-RSV Vaccine: 60+ Years or (1 - Risk 60-74 years 1-dose series) 2020 [facility]-Diabetes: Hemoglobin A1C 10/15/2023 04/17/2023 [facility]-Depression Screening 05/21/2024 05/22/2023 [facility]-Influenza Vaccine (#1) 10/07/202410/21, 12/23/2015, 10/28/2014, Additional history exists [facility]-DTaP,Tdap,and Td Vaccines (2 - Td or Tdap) 08/14/2025 08/15/2015 [facility]-Pneumococcal Vaccine: 50+ Years Completed 10/25/2021, 08/15/2015 [facility]-Obesity Intervention Completed 04/17/2023 HPV Vaccines Aged Out No longer eligi ble based on patient's age to complete this topic [facility]-HIB Vaccines Aged Out No longer e ligible based on patient's age to complete this topic [facility]-Hepatitis A Vaccines Aged Out No longer eligible based on patient's age to complete this topic [facility]-IPV Vaccines Aged Out No longer e ligible based on patient's age to complete this topic [facility]-Rotavirus Vaccines Aged Out No lo nger eligible based on patient's age to complete this topic Procedures Procedure Name Priority Date/Time Associated Diagnosis Comments HEMOGLOBIN A1C Routine 04/17/2023 2:16 PM EDT Vulvar lesion from Last 3 Months or Most Recently Relevant to Health Maintenance Results * (ABNORMAL) Hemoglobin A1c (04/17/2023 2:16 PM EDT) Hemoglobin A1c 6.0(H) <5.7 % 04/17/2023 2:52 PM EDT [facility] Blood Venous blood specimen / Unknown Venipuncture / Unknown 04/17/2023 2:16 PM EDT 04/17/2023 2:35 PM EDT Narrative [facility] - 04/17/2023 2:52 PM EDT HA1C Interpretive Data: Diagnosis of Diabetes: Diabetic > or = 6.5% Pre-diabetic 5.7 to 6.4% Non-diabetic < or = 5.6% Glycemic Targets for Type I and Type II Diabetics: Non- Adults <7.0% Adults <6.0% Children and Adolescents <7.5% Source: [place] [employer]. Standards of medical care in diabetes,2017. Diabetes Care.2017:40 (suppl 1):S1-S135. HbA1c assay performed by an ion-exchange chromatography method that is certified traceable to the DCCT. Jonah Pastor MD LAB BLOOD ORDERABLES Final Result [facility] [address] [place] [id number] from Last 3 Months or Most Recently Relevant to Health Maintenance Insurance [employer] Advance Directives * Full Code (Latest Code Status on File) Date Activated Date Inactivated Comments 04/25/2023 11:35 AM 04/27/2023 6:33 PM Question Answer Comments Patient has decision-making capacity? Yes Care Teams Ems Instructor Relationship Specialty Start Date End Date Pcp, No [address] [place] [address] PCP - General Family Medicine 04/17/23 Judi Jauregui DO [address] [place] [address] [address] [place] [address] Resident 04/13/23
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
--- OUTSIDE RECORDS SUMMARY | 2024-11-06 13:58 | XMS_ITS | Encounter Summary ---
Author Organization [facility] Address [address] [place] [address] [place] [address] Phone Care Team Providers Care Stabber Name Role Phone Jeremy Dominguez MD Primary Care Provider [phone] Camilla Asher LPN Unavailable Unavailable Marky Coleman MD Unavailable [phone] Encounter Details Date Type Department Care Team ([facility] st Contact Info) Description 05/27/2022 [facility] [address] [place], [place] [id number] Social History Tobacco Use Types Packs/Day Years Used Date Smoking Tobacco: Former Cigarettes 1 40 Smokeless Tobacco: Former Quit: 10/07/2020 Alcohol Use Standard Drinks/Week Comments Not Currently 0 (1 standard drink = 0.6 oz pur e alcohol) Comments Unknown Sex and Gender Information Value Date Recorded Sex Assigned at Not on file Legal Sex Female 5:44 AM EDT Gender Identity Not on file Sexual Orientation Not on file documented as of this encounter Progress Notes * Cynthia Weinberg - 05/27/2022 3:56 PM EDT Attempted to contact patient for Medicare Wellness Visit for 2022, left VM. If patient returns call, please schedule for Medicare Wellness Visit with primary care office. Thank you documented in this encounter Plan of Treatment Not on file documented as of this encounter Visit Diagnoses Not on filedocumented in this encounter Care Teams Stabber Relationship Specialty Start Date End Date Jeremy Dominguez MD PCP - General Internal Medicine 09/11/18 10/30/22 Marky Coleman MD [address] [place] [phone] PCP - Luis SOUSA Attributed Physician 02/06/22 10/06/22 Camilla Asher LPN Licensed Practical Nurse 05/18/19 documented as of this encounter
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
[2024-11-06 14:00] LABS: Hematocrit 42.6 % (37.0-47.0); Hemoglobin 13.5 g/dL (12.2-16.2); Immature Granulocytes % 0.7 %; Mean Corpuscular HGB Conc 31.7 g/dL (31.8-35.4); Mean Corpuscular Hemoglobin 30.7 pg (27.0-31.2); Mean Corpuscular Volume 96.8 fl (81-99); Nucleated Red Blood Cells % 0 %; Platelet Count 176 K/mm3 (142-424); Red Blood Count 4.40 M/mm3 (4.20-5.40); Red Cell Distribution Width-SD 46.4 fL; White Blood Count 9.9 K/mm3 (4.8-10.8)
[2024-11-06 14:11] LABS: Alanine Aminotransferase 26 U/L (12-78); Albumin Level 3.9 g/dl (3.5-5.0); Albumin/Globulin Ratio 1.4 (1.1-1.8); Alkaline Phosphatase 93 U/L (38-126); Anion Gap 14.3 mEq/L (5-15); Aspartate Amino Transferase 31 U/L (14-36); Bilirubin,Total 0.7 mg/dl (0.2-1.3); Blood Urea Nitrogen 22 mg/dl (7-17); Calcium 9.0 mg/dl (8.4-10.2); Carbon Dioxide 24 mmol/L (22.0-30.0); Chloride 108 mmol/L (98-107); Creatinine,Serum 1.60 mg/dl (0.52-1.04); Estimated Glomerular Filt Rate 32 ml/min (>60); GFR (African American) 39 ML/MIN (>60); Globulin 2.7 g/dL (1.3-3.2); Glucose 107 mg/dl (74-100); Potassium 5.3 mmoL/L (3.5-5.1); Sodium 141 mmol/L (136-145); Total Protein,Serum 6.6 g/dl (6.3-8.2)
[2024-11-06] MEDS: SODIUM CHLORIDE 0.9% 10ML SYR (RAD ONLY) 10 ML IV (14:22)
[2024-11-06] MEDS: IOPAMIDOL-370 (76%);100ML BOTTLE 160 ML IV (14:22)
[2024-11-06] MEDS: 0.9 % SODIUM CHLORIDE 50 ML VIAL 100 ML IV (14:22)
[2024-11-06 14:24] LABS: Activated Partial Thrombo Time 24.9 seconds (22.8-30.6); INR 0.96 (0.9-1.1); Prothrombin Time 10.7 seconds (10.1-12.5)
--- NOTE | 2024-11-06 14:30 | PC.NURSE ---
is speaking with the radiologist
--- NOTE | 2024-11-06 14:32 | ECG_ITS ---
APPROVED REPORT Exam: Resting ECG HR:60 bpm ECG Measurements Heart Rate 60 AXES AK 216 P 240 QRSd 112 QRS 53 QT 407 T 85 QTc 407 Conclusion Atrial paced rhythm Normal axis AK prolongation consistent with first-degree AV block No STEMI Electronically signed by : Constantino Woody, 11/06/2024 16:49:48
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
--- NOTE | 2024-11-06 15:51 | PC.NURSE ---
Called [facility] per Dr Woody to speak with them about this pt with a vascular carotid artery dissection. Images have been powershared and we are awaiting [facility] to call back
[2024-11-06 16:10] LABS: Troponin I < 0.01 ng/ml (0.00-0.034)
--- NOTE | 2024-11-06 16:14 | PC.NURSE ---
called back and is speaking with Dr Anguiano
--- NOTE | 2024-11-06 16:40 | PC.NURSE ---
Called [facility] to see if they could possibly take this pt to [facility] due to EMS being called out to go to [place] so this pt wouldnt have to wait for a long period of time as they agrred to go voluntarily. Dr Champion was the accepting.
[2024-11-06] MEDS: ACETAMINOPHEN 500MG TAB 1000 MG PO (16:44)
[2024-11-06] MEDS: KETOROLAC 15MG/ML VIAL 15 MG IV (16:44)
--- NOTE | 2024-11-06 17:17 | PC.NURSE ---
I called and spoke to Reina in radiology regarding the pts pelvis CT. She is going to push it through again due to it being the only scan not resulted.
[2024-11-06 19:14] LABS: Troponin I < 0.01 ng/ml (0.00-0.034)
== END 2024-11-06 19:28 | disposition home or self-care (01) ==
PROVIDERS: Emergency Provider Student in an Organized Health Care Education/Training Program
DX: S00.83XA Contusion of other part of head, initial encounter (principal); R42 Dizziness and giddiness; I44.0 Atrioventricular block, first degree; J44.9 Chronic obstructive pulmonary disease, unspecified; I10 Essential (primary) hypertension; E78.5 Hyperlipidemia, unspecified; Z86.79 Personal history of other diseases of the circulatory system; Z95.0 Presence of cardiac pacemaker; V47.5XXA Car driver injured in collision with fixed or stationary object in traffic accident, initial encounter; Z87.891 Personal history of nicotine dependence
CPT/HCPCS: 70450; 70496; 70498; 71045; 71275; 72125; 72128; 72131; 72170; 72192; 73552; 74174; 80053; 84484; 85025; 85610; 85730; 93005; 96374; 99285; J1885; Q9967